=== PATIENT | male | born 1965 | race Caucasian/White ===

== ENCOUNTER → 2017-06-03 14:50 | Outpatient (POV) | payer OTHER, MEDICARE, SELFPAY | PROVIDERS: Family Provider Internal Medicine; PCP Internal Medicine; Visit Provider Nurse Practitioner Acute Care | DX: Z00.00 Encounter for general adult medical examination without abnormal findings (principal) ==

== ENCOUNTER → 2017-07-31 10:15 | Outpatient (CLI) | payer OTHER, MEDICARE, SELFPAY ==
--- NOTE | 2017-07-31 10:22 | XR_ITS ---
EXAM: XR thoracic spine 2V HISTORY: Mid back pain ITS.REASON: MID BACK PAIN, Comparison: 08/27/2016 FINDINGS: Garcia rods are present. There are wedge compression changes involving T9 similar to the previous exam. There is mild kyphosis at the T9 level. There is mild anterolisthesis of T8 on T9 of 7 mm. There is thoracic lumbar curvature convex right IMPRESSION: Postsurgical changes with Garcia rods extending from T6 to T12 with old compression fracture of T9 and mild anterolisthesis of T8 on T9. No acute finding
== END ==
PROVIDERS: PCP Internal Medicine; Visit Provider Internal Medicine
DX: M54.6 Pain in thoracic spine (principal); M54.5 Low back pain; G82.20 Paraplegia, unspecified
CPT/HCPCS: 72070

== ENCOUNTER → 2018-08-11 15:42 | Outpatient (CLI) | payer OTHER, MEDICARE, SELFPAY | PROVIDERS: Visit Provider Internal Medicine | DX: N39.0 Urinary tract infection, site not specified (principal); J03.90 Acute tonsillitis, unspecified | CPT/HCPCS: 87070; 87077; 87086; 87088; 87186 ==

== ENCOUNTER → 2018-08-13 12:56 | Outpatient (CLI) | payer OTHER, MEDICARE, SELFPAY ==
[2018-08-13 13:10] VITALS: BP 119/77; PULSE 108; RESP 18; TEMP 36.6; O2SAT 95
[2018-08-13 13:15] VITALS: BMI 24.3
== END ==
PROVIDERS: PCP Internal Medicine; Visit Provider Internal Medicine
DX: N39.0 Urinary tract infection, site not specified (principal); J03.90 Acute tonsillitis, unspecified
CPT/HCPCS: 96372

== ENCOUNTER 2018-08-14 12:50 | Outpatient (CLI) | payer OTHER, MEDICARE, SELFPAY ==
[2018-08-14 13:06] VITALS: BP 123/74; PULSE 104; RESP 18; TEMP 36.9; O2SAT 100
== END 2018-08-14 13:10 | disposition home or self-care (01) ==
LOC: INF 12:54
PROVIDERS: Visit Provider Internal Medicine
DX: N39.0 Urinary tract infection, site not specified (principal)
CPT/HCPCS: 96372

== ENCOUNTER 2018-08-15 10:55 | Outpatient (CLI) | payer OTHER, MEDICARE, SELFPAY ==
[2018-08-15 11:20] VITALS: BP 94/87; PULSE 92; RESP 18; TEMP 36; O2SAT 100
== END 2018-08-15 11:35 | disposition home or self-care (01) ==
LOC: INF 10:57
PROVIDERS: Visit Provider Internal Medicine
DX: N39.0 Urinary tract infection, site not specified (principal)
CPT/HCPCS: 96372

== ENCOUNTER → 2018-08-16 09:55 | Outpatient (CLI) | payer OTHER, MEDICARE, SELFPAY ==
[2018-08-16 09:55] VITALS: BP 125/71; PULSE 87; RESP 18; TEMP 36.6; O2SAT 98
[2018-08-16 10:14] VITALS: BP 110/74; PULSE 84; RESP 18; TEMP 36.6; O2SAT 98; BMI 23.1
== END ==
PROVIDERS: PCP Internal Medicine; Visit Provider Internal Medicine
DX: N39.0 Urinary tract infection, site not specified (principal)
CPT/HCPCS: 96372

== ENCOUNTER 2018-08-17 12:53 | Outpatient (CLI) | payer OTHER, MEDICARE, SELFPAY ==
[2018-08-17 12:53] VITALS: BP 135/75; PULSE 85; RESP 17; TEMP 36.7; O2SAT 99
[2018-08-17 13:07] VITALS: BP 146/88; PULSE 93; RESP 18; TEMP 36.7; O2SAT 99
== END 2018-08-19 13:45 | disposition home or self-care (01) ==
LOC: INF 12:55
PROVIDERS: PCP Internal Medicine; Visit Provider Internal Medicine
DX: N39.0 Urinary tract infection, site not specified (principal); J03.90 Acute tonsillitis, unspecified
CPT/HCPCS: 96372

== ENCOUNTER 2018-08-18 15:04 | Outpatient (CLI) | payer OTHER, MEDICARE, SELFPAY ==
[2018-08-18 15:05] VITALS: BP 133/83; PULSE 89; RESP 20; TEMP 36.9; O2SAT 95
== END 2018-08-18 15:30 | disposition home or self-care (01) ==
LOC: INF 15:05
PROVIDERS: Visit Provider Internal Medicine
DX: N39.0 Urinary tract infection, site not specified (principal); J03.90 Acute tonsillitis, unspecified
CPT/HCPCS: 96372

== ENCOUNTER 2018-08-19 13:01 | Outpatient (CLI) | payer OTHER, MEDICARE, SELFPAY ==
[2018-08-19 13:22] VITALS: BP 117/80; PULSE 84; RESP 18; O2SAT 98
== END 2018-08-19 13:24 | disposition home or self-care (01) ==
LOC: INF 13:02
PROVIDERS: Visit Provider Internal Medicine
DX: N39.0 Urinary tract infection, site not specified (principal); J03.90 Acute tonsillitis, unspecified
CPT/HCPCS: 96372

== ENCOUNTER → 2019-01-16 10:30 | Outpatient (CLI) | payer OTHER, MEDICARE, SELFPAY ==
--- NOTE | 2019-01-16 | ECG_ITS ---
APPROVED REPORT Exam: Resting ECG HR:97 bpm ECG Measurements Heart Rate 97 AXES VA 152 P 64 QRSd 88 QRS 75 QT 334 T 49 QTc 424 <Conclusion> Normal sinus rhythm Normal ECG Electronically signed by : Duc Shi, 01/16/2019 11:29:57
--- NOTE | 2019-01-16 10:52 | XR_ITS ---
PROCEDURE: XR CHEST 2V CLINICAL HISTORY: CHEST PAIN,DM TYPE II The COMPARISON: CXR CHEST(2 VIEWS-NOT PORTABLE) from 08/27/2016 FINDINGS: The cardiomediastinal silhouette and pulmonary vascularity are within normal limits. The lungs are clear without infiltrates, suspicious nodules, or pleural effusions. Calcified node is present in the azygos region. Garcia rods are present in the thoracic spine. No acute bony anomaly. IMPRESSION: No change no acute finding Dictated by: Anderson Frederick MD 01/16/2019 11:12 Electronically signed by Anderson Frederick MD in [place] 01/16/2019 11:12
[2019-01-16 10:57] LABS: Basophils % 0.7 % (0.1-2.0); Eosinophils # 0.1 K/mm3 (0.0-0.4); Eosinophils % 1.1 % (0.1-12.0); Hematocrit 43.7 % (42.0-52.0); Hemoglobin 14.2 g/dL (14.1-18.0); Lymphocytes % 18.4 % (10-50); Mean Corpuscular HGB Conc 32.6 g/dL (31.8-35.4); Mean Corpuscular Hemoglobin 29.1 pg (27.0-31.2); Mean Corpuscular Volume 89.4 fl (80-94); Mean Platelet Volume 7.8 fl (7.4-10.4); Monocytes # 0.3 K/mm3 (0.1-1.0); Monocytes % 5.2 % (1.7-9.3); Neutrophils % 74.6 % (37.0-80.0); Platelet Count 233 K/mm3 (142-424); Red Blood Count 4.88 M/mm3 (4.60-6.20); Red Cell Distribution Width 13.1 % (11.5-17.5); White Blood Count 5.4 K/mm3 (4.8-10.8)
[2019-01-16 11:13] LABS: Alanine Aminotransferase 12 U/L (12-78); Albumin Level 3.6 gm/dL (3.4-5.0); Albumin/Globulin Ratio 0.9 (1.1-1.8); Alkaline Phosphatase 80 U/L (46-116); Anion Gap 8.8 mEq/L (5-15); Aspartate Amino Transferase 13 U/L (15-37); Bilirubin,Total 0.5 mg/dL (0.2-1.0); Blood Urea Nitrogen 10 mg/dL (7-18); Calcium 9.3 mg/dL (8.5-10.1); Carbon Dioxide 31 mmol/L (21.0-32.0); Chloride 100 mmol/L (98-107); Chol/HDL Ratio 9.3 (1-3.5); Cholesterol 185 mg/dL (140-200); Estimated Glomerular Filt Rate 88 ml/min (>60); GFR (African American) 106 ML/MIN (>60); Glucose 246 mg/dL (74-106); HDL Cholesterol 20 mg/dL (27-67); LDL Cholesterol 112 mg/dL (0-130); Potassium 4.8 mmoL/L (3.5-5.1); Sodium 135 mmol/L (136-145); Total Protein,Serum 7.6 gm/dL (6.4-8.2); Triglycerides 266 mg/dL (30-200); Troponin I < 0.02 ng/ml (0.00-0.06); VLDL Cholesterol 53 mg/dL (0-40)
[2019-01-16 11:51] LABS: Hemoglobin A1C 8.2 % (0.0-7.0)
== END ==
PROVIDERS: Visit Provider Internal Medicine
DX: R07.9 Chest pain, unspecified (principal); E11.9 Type 2 diabetes mellitus without complications; E78.5 Hyperlipidemia, unspecified; Z79.84 Long term (current) use of oral hypoglycemic drugs; G82.20 Paraplegia, unspecified
CPT/HCPCS: 36415; 71046; 80053; 80061; 83036; 84484; 85025; 93005

== ENCOUNTER → 2019-01-23 11:49 | Outpatient (CLI) | payer OTHER, MEDICARE, SELFPAY ==
--- NOTE | 2019-01-23 | CA_ITS ---
APPROVED REPORT Exam: Pharmacologic Technologist: Nona Hernandez Ht: 6 ft 1 in Wt: 185 lbs BSA: 2.08 m2 HR: 79 bpm BP: 96/58 mmHg Indications: CP, SOB Medical History Medications: Metformin,,,,, Gabapentin,,,,, Escitalopram,,,,, Glipizide,,,,, BisOPROLOL,,,,, Baclofen,,,,, Levoflaxacin,,,,, Sitagliptin,,,,, OxYbutyIN,,,,, DAntcolene,,,,, Cardiac Risk Factors: Hyperlipidemia, Tobacco Stress Test Details Test: LEXISCAN HR Resting HR: 78 bpm Max Heart Rate (APMHR): 165 bpm Max HR Achieved: 99 bpm Target HR (85% APMHR): 140 bpm % of APMHR: 60 BP Resting BP: 96/58 mmHg Max BP: 108/65 mmHg Recovery BP: 100.0/65.0 mmHg ECG Resting ECG: NSR Clinical Reason for Termination: Completed Protocol Exercise duration: 04:01 min Highest Stage Achieved: Exercise capacity: 1.0 METs Stress ECG Conclusion No CP or Arrhythmias. Less than 1.5mm ST Segment Changes. Non-Diagnostic. Electronically signed by : Jim Stahl, 01/23/2019 14:54:27
--- NOTE | 2019-01-23 11:52 | NM_ITS ---
APPROVED REPORT Exam: Nuclear Stress Test Indication: Chest pain, SOB, Palpitations, DM, High cholesterol, Family history Patient Location: Outpatient Stress Tech: Nona Hernandez [place] Tech:CLAUDE Burns RT(R)(N) Ht: 6 ft 1 in Wt: 185 lbs HR: 79 bpm BP: 96/58 mmHg BSA: 2.08 m2 BMI: 24.4 History: Chest pain, SOB, Palpitations, DM, High cholesterol, Family history Procedure: Patient received a 0.4 mg of intravenous Lexiscan, resting heart rate 79 bpm, resting blood pressure 96/58 mmHg, with Lexiscan maximum heart rate achived was 98 bpm which is Less than 85 % of the maximum predicted heart rate and blood pressure was 92/58 mmHg. With Lexiscan, patient denied any complaint of chest pain. Electrocardiogram Resting electrocardiogram showed sinus rhythm, with Lexiscan there is less than 1.[address] segment depression noted from the baseline EKG. The EKG portion of the Lexiscan Myoview is nondiagnostic. Cardiac Stress and Resting SPECT Images: Cardiac Stress and Resting SPECT images were obtained using technetium 99m Myoview 32.9 mCi stress and 10.58 mCi at rest. Gated SPECT with analysis of segmental wall motion and calculation of the ejection fraction also done. Cardiac stress and resting SPECT images show uniform myocardial activity without segmental perfusion abnormality, computer derived ejection fraction is 65% with no regional wall motion abnormality, right ventricle is normal size and contractility. Conclusion: 1. The EKG portion of the Lexiscan Myoview is nondiagnostic. 2. No scintigraphic evidence of reversible ischemia seen, computer derived ejection fraction is 65% with no regional wall motion abnormality, right ventricle is normal size and contractility. 3. Normal Lexiscan Myoview study. Electronically signed by : Jim Stahl, 01/23/2019 15:21:51
--- NOTE | 2019-01-23 14:22 | CA_ITS ---
APPROVED REPORT EXAM: Comprehensive 2D, Doppler, and color-flow Echocardiogram Remelt Sugar Boiler: Kelly Soler CRT Ht: 6 ft 1 in Wt: 180lbs BSA: 2.06 BP: 133/75 mmHg Indications: cp, dm, sob, 2D Dimensions LVOT 2.01 cm (M/F) 1.5-2.5 M-Mode Dimensions RVDd 2.99 cm (0.9-2.6) LVDd 4.67 cm (3.5-5.7) LVDs 3.05 cm (3.5-5.7) IVSd 1.84 cm (0.6-1.1) PWd 0.53 cm (0.6-1.1) EF (Teich) 63.90% FS 34.70% EDV (Teich) 100.80 mL ESV (Teich) 36.40 mL LV Diastology E/A Ratio 0.82 Mitral Valve MV A Velocity 66.00 (40-130 cm/s) Left Ventricle Left atrium is mildly enlarged, left ventricle is normal size, mild concentric left ventricular hypertrophy, visually estimated ejection fraction 45 to 50%, there is marked hypokinesis involving the inferior, inferior basal and posterior basal wall. Grade 1 diastolic dysfunction seen with tissue Doppler evidence of raise left atrial pressure. Right Ventricle Right atrium and right ventricular normal size and contractility. Aortic Valve Aortic valve is minimally thickened and fibrosed leaflet on a display good mobility, there is no aortic stenosis aortic insufficiency. Mitral Valve Mitral valve is grossly normal, there is mild mitral regurgitation. Tricuspid Valve Tricuspid valve is grossly normal, there is mild tricuspid regurgitation, tricuspid regurgitation jet velocity is inadequate for calculation of the right ventricular systolic pressure. Pulmonic Valve Pulmonic valve is poorly visualized. Great Vessels Aortic root is normal size. Pericardium No significant pericardial effusion noted. Conclusion 1. Mildly enlarged left atrium, normal left ventricular size, mild concentric left ventricular hypertrophy, visually estimated ejection fraction 45 to 50% with segmental wall motion abnormality described above, grade 1 diastolic dysfunction seen with tissue Doppler evidence of raise left atrial pressure. 2. Mild mitral and tricuspid regurgitation 3. No significant pericardial effusion noted. Electronically signed by : Jim Stahl, 01/26/2019 20:45:36
== END ==
PROVIDERS: PCP Internal Medicine; Visit Provider Urology
DX: R07.9 Chest pain, unspecified (principal); R00.0 Tachycardia, unspecified; R06.02 Shortness of breath; R94.31 Abnormal electrocardiogram [ECG] [EKG]
CPT/HCPCS: 78452; 93017; 93306

== ENCOUNTER → 2019-02-17 08:38 | Outpatient (CLI) | payer OTHER, MEDICARE, SELFPAY ==
--- NOTE | 2019-02-17 08:40 | US_ITS ---
PROCEDURE: US ABDOMEN COMPLETE CLINICAL INDICATION: RUQ PAIN Right upper quadrant pain COMPARISON: No exams were available for comparison FINDINGS: PANCREAS: Unremarkable. No obvious mass or abnormal fluid collection. No ductal dilatation LIVER: No focal liver lesions demonstrated. Homogeneous echogenicity. No intrahepatic biliary ductal dilatation evident. There is appropriate direction of blood flow within a non dilated portal vein RIGHT KIDNEY: Unremarkable. Normal size and echogenicity. No hydronephrosis LEFT KIDNEY: Unremarkable. Normal size and echogenicity. No hydronephrosis GALLBLADDER: The there are multiple gallstones present. No gallbladder wall thickening or pericholecystic fluid. Common bile duct is normal at 5 mm AORTA: No evidence of aneurysmal dilatation. SPLEEN: Unremarkable. Normal size and echogenicity ASCITES: None demonstrated. IMPRESSION: Cholelithiasis Dictated by: Anderson Frederick MD 02/17/2019 16:25 Electronically signed by Anderson Frederick MD in [facility] 02/17/2019 16:25
== END ==
PROVIDERS: PCP Internal Medicine; Visit Provider Internal Medicine
DX: R10.11 Right upper quadrant pain (principal)
CPT/HCPCS: 76700

== ENCOUNTER → 2019-03-16 11:25 | Outpatient (CLI) | payer OTHER, MEDICARE, SELFPAY ==
[2019-03-16 11:54] LABS: Basophils % 0.7 % (0.1-2.0); Eosinophils # 0.2 K/mm3 (0.0-0.4); Eosinophils % 2.4 % (0.1-12.0); Hematocrit 44.2 % (42.0-52.0); Hemoglobin 14.2 g/dL (14.1-18.0); Lymphocytes # 1.6 K/mm3 (0.7-4.5); Lymphocytes % 23.4 % (10-50); Mean Corpuscular Hemoglobin 27.7 pg (27.0-31.2); Mean Corpuscular Volume 86.4 fl (80-94); Mean Platelet Volume 7.9 fl (7.4-10.4); Monocytes # 0.3 K/mm3 (0.1-1.0); Monocytes % 3.7 % (1.7-9.3); Neutrophils # 4.7 K/mm3 (1.8-7.8); Neutrophils % 69.8 % (37.0-80.0); Platelet Count 206 K/mm3 (142-424); Red Blood Count 5.12 M/mm3 (4.60-6.20); Red Cell Distribution Width 13.8 % (11.5-17.5); White Blood Count 6.7 K/mm3 (4.8-10.8)
[2019-03-16 12:31] LABS: Alanine Aminotransferase 17 U/L (12-78); Albumin Level 3.8 gm/dL (3.4-5.0); Albumin/Globulin Ratio 1.2 (1.1-1.8); Alkaline Phosphatase 73 U/L (46-116); Anion Gap 13.6 mEq/L (5-15); Aspartate Amino Transferase 11 U/L (15-37); Bilirubin,Total 0.3 mg/dL (0.2-1.0); Blood Urea Nitrogen 14 mg/dL (7-18); Calcium 9.1 mg/dL (8.5-10.1); Carbon Dioxide 28 mmol/L (21.0-32.0); Chloride 100 mmol/L (98-107); Creatinine,Serum 0.81 mg/dL (0.70-1.30); Estimated Glomerular Filt Rate 99 ml/min (>60); GFR (African American) 120 ML/MIN (>60); Globulin 3.2 gm/dl (1.3-3.2); Glucose 196 mg/dL (74-106); Potassium 4.6 mmoL/L (3.5-5.1); Sodium 137 mmol/L (136-145)
== END ==
PROVIDERS: Visit Provider Surgery
DX: K82.9 Disease of gallbladder, unspecified (principal)
CPT/HCPCS: 36415; 80053; 85025

== ENCOUNTER → 2019-04-09 15:52 | Outpatient (CLI) | payer OTHER, MEDICARE, SELFPAY | PROVIDERS: Visit Provider Internal Medicine | DX: S31.829A Unspecified open wound of left buttock, initial encounter (principal); S31.819A Unspecified open wound of right buttock, initial encounter | CPT/HCPCS: 87070; 87077; 87186; 87205 ==

== ENCOUNTER → 2019-04-13 10:13 | Outpatient (CLI) | payer OTHER, MEDICARE, SELFPAY ==
--- NOTE | 2019-04-13 10:15 | US_ITS ---
PROCEDURE: US EXTREMITY LT LIMITED CLINICAL INDICATION: LESION BUTTOCK Left buttock lesion, possible abscess COMPARISON: No exams were available for comparison FINDINGS: Ultrasound examination performed over the left buttock. There is some subcutaneous soft tissue swelling. There is irregular area of decreased echogenicity with posterior enhancement and some internal debris suspicious for an abscess in the left buttock region. This measures approximately 9 cm in with and 2 cm in thickness. This may represent an abscess. Recommend CT the pelvis/left buttock region with contrast for further evaluation. IMPRESSION: Abnormal exam suspicious for subcutaneous abscess in the left buttock region. Suggest CT with contrast for confirmation Dictated by: Anderson Frederick MD 04/13/2019 10:41 Electronically signed by Anderson Frederick MD in [facility] 04/13/2019 10:41
[2019-04-13 11:11] LABS: Blood Urea Nitrogen 18 mg/dL (7-18); Creatinine,Serum 0.93 mg/dL (0.70-1.30); Estimated Glomerular Filt Rate 84 ml/min (>60); GFR (African American) 102 ML/MIN (>60)
--- NOTE | 2019-04-13 11:19 | CT_ITS ---
PROCEDURE: CT PELVIS W CON CLINICAL INDICATION: LT BUTTOCKS LESION/ABCESS Left buttock pain and swelling with drainage. Abnormal ultrasound suggesting abscess COMPARISON: No exams were available for comparison TECHNIQUE: 75 mL Optiray 350 Axial images obtained with sagittal and coronal reformats. All CT scans at the facility use one or more dose reduction, viz: automated exposure control, ma/kV adjustment per patient size (including targeted exams where dose is matched to indication, i.e. head), or iterative reconstruction technique. FINDINGS: There is abnormal subcutaneous soft tissue density in the left buttock region medially and inferiorly just proximal to the gluteal fold. This measures 7 by 6 by 6 cm. This is consistent with a phlegmonous area. No drainable fluid collection however is evident in this region. There is small amount of gas extending from the ischial tuberosity region linear in nature. The gas extends medially and a component of the gas extends posteriorly. The there is a small defect in the cutaneous soft tissues in this region as well. This is consistent with a decubitus ulcer with cellulitis. The there is sclerosis of the left ischial tuberosity which may reflect chronic osteomyelitis. There are incidental degenerative changes noted of the hips. IMPRESSION: The the overall, the findings are consistent with decubitus ulcer in the left inferior gluteal region medially with cellulitis and chronic osteomyelitis of the ischial tuberosity with a sinus tract noted at the ischial tuberosity region and a small defect within the skin posteriorly inferiorly and medially at the gluteal region. No drainable abscess apparent Dictated by: Anderson Frederick MD 04/13/2019 14:37 Electronically signed by Anderson Frederick MD in [facility] 04/13/2019 14:37
== END ==
PROVIDERS: PCP Internal Medicine; Visit Provider Internal Medicine
DX: S31.829A Unspecified open wound of left buttock, initial encounter (principal)
CPT/HCPCS: 36415; 72193; 76882; 82565; 84520; Q9967

== ENCOUNTER 2019-04-22 10:30 | Outpatient (RCR) | payer OTHER, MEDICARE, SELFPAY | END 2019-04-22 11:20 | disposition home or self-care (01) | LOC: PT 10:30 | PROVIDERS: PCP Internal Medicine; Visit Provider Internal Medicine | DX: S31.829A Unspecified open wound of left buttock, initial encounter (principal); S31.819A Unspecified open wound of right buttock, initial encounter | CPT/HCPCS: 97163; 97597 ==

== ENCOUNTER → 2019-07-07 18:34 | Outpatient (CLI) | payer OTHER, MEDICARE, SELFPAY | PROVIDERS: Visit Provider Internal Medicine | DX: S31.829A Unspecified open wound of left buttock, initial encounter (principal); S31.819A Unspecified open wound of right buttock, initial encounter | CPT/HCPCS: 87070; 87077; 87186; 87205 ==

== ENCOUNTER → 2019-08-28 09:02 | Outpatient (CLI) | payer OTHER, MEDICARE, SELFPAY ==
[2019-08-28 09:46] LABS: Basophils % 0.5 % (0.1-2.0); Eosinophils # 0.2 K/mm3 (0.0-0.4); Eosinophils % 2.5 % (0.1-12.0); Hematocrit 37.2 % (42.0-52.0); Hemoglobin 11.8 g/dL (14.1-18.0); Lymphocytes # 1.9 K/mm3 (0.7-4.5); Lymphocytes % 23.1 % (10-50); Mean Corpuscular HGB Conc 31.6 g/dL (31.8-35.4); Mean Corpuscular Hemoglobin 26.2 pg (27.0-31.2); Mean Corpuscular Volume 82.8 fl (80-94); Mean Platelet Volume 7.6 fl (7.4-10.4); Monocytes # 0.5 K/mm3 (0.1-1.0); Neutrophils # 5.7 K/mm3 (1.8-7.8); Neutrophils % 67.9 % (37.0-80.0); Platelet Count 330 K/mm3 (142-424); Red Blood Count 4.49 M/mm3 (4.60-6.20); Red Cell Distribution Width 14.8 % (11.5-17.5); White Blood Count 8.3 K/mm3 (4.8-10.8)
[2019-08-28 10:20] LABS: Hemoglobin A1C 6.5 % (4.0-6.0)
[2019-08-28 10:59] LABS: Erythrocyte Sedimentation Rate 59 mm/hr (0-20)
[2019-08-28 11:02] LABS: Alanine Aminotransferase 17 U/L (12-78); Albumin Level 3.8 g/dl (3.5-5.0); Albumin/Globulin Ratio 1.2 (1.1-1.8); Alkaline Phosphatase 97 U/L (38-126); Anion Gap 12.7 mEq/L (5-15); Aspartate Amino Transferase 29 U/L (17-59); Bilirubin,Total 0.2 mg/dl (0.2-1.3); Blood Urea Nitrogen 10 mg/dl (9-20); Calcium 9.8 mg/dl (8.4-10.2); Carbon Dioxide 32 mmol/L (22.0-30.0); Chloride 97 mmol/L (98-107); Chol/HDL Ratio 5.9 (1-3.5); Cholesterol 142 mg/dl (140-200); Estimated Glomerular Filt Rate 139 ml/min (>60); GFR (African American) 169 ML/MIN (>60); Globulin 3.1 g/dL (1.3-3.2); Glucose 123 mg/dl (74-100); HDL Cholesterol 24 mg/dl (40-60); Potassium 4.7 mmoL/L (3.5-5.1); Sodium 137 mmol/L (136-145); Total Protein,Serum 6.9 g/dl (6.3-8.2); Triglycerides 196 mg/dl (30-150); VLDL Cholesterol 39 mg/dL (0-40)
[2019-08-28 11:13] LABS: Direct LDL Cholesterol 97.02 mg/dL (100-129)
== END ==
PROVIDERS: Visit Provider Internal Medicine
DX: E78.5 Hyperlipidemia, unspecified (principal); I10 Essential (primary) hypertension; E11.9 Type 2 diabetes mellitus without complications; Z79.84 Long term (current) use of oral hypoglycemic drugs; L89.159 Pressure ulcer of sacral region, unspecified stage
CPT/HCPCS: 36415; 80053; 80061; 83036; 85025; 85651

== ENCOUNTER 2019-09-07 14:30 | Outpatient (RCR) | payer OTHER, MEDICARE, SELFPAY | END 2019-09-07 14:35 | disposition home or self-care (01) | LOC: PT 14:30 | PROVIDERS: PCP Internal Medicine; Visit Provider Internal Medicine | DX: S31.829A Unspecified open wound of left buttock, initial encounter (principal) | CPT/HCPCS: 97163; 97164; 97597; 97598; 97605; 97606 ==

== ENCOUNTER 2019-11-12 12:46 | Emergency (ER) | payer OTHER, MEDICARE, SELFPAY ==
[2019-11-12 12:47] VITALS: BP 176/73; PULSE 118; RESP 18; TEMP 36.9; O2SAT 97; BMI 24.6
--- NOTE | 2019-11-12 13:34 | PC.NURSE ---
Lab at bedside
[2019-11-12 13:35] VITALS: BP 125/70; PULSE 95; O2SAT 97
[2019-11-12 13:36] LABS: Basophils % 0.2 % (0.1-2.0); Eosinophils # 0.1 K/mm3 (0.0-0.4); Eosinophils % 0.9 % (0.1-12.0); Hematocrit 39.2 % (42.0-52.0); Hemoglobin 12.4 g/dL (14.1-18.0); Lymphocytes # 1.3 K/mm3 (0.7-4.5); Lymphocytes % 13.2 % (10-50); Mean Corpuscular HGB Conc 31.5 g/dL (31.8-35.4); Mean Corpuscular Hemoglobin 25.6 pg (27.0-31.2); Mean Corpuscular Volume 81.1 fl (80-94); Mean Platelet Volume 6.6 fl (7.4-10.4); Monocytes # 0.6 K/mm3 (0.1-1.0); Monocytes % 5.9 % (1.7-9.3); Neutrophils # 7.6 K/mm3 (1.8-7.8); Neutrophils % 79.7 % (37.0-80.0); Platelet Count 416 K/mm3 (142-424); Red Blood Count 4.83 M/mm3 (4.60-6.20); Red Cell Distribution Width 14.1 % (11.5-17.5); White Blood Count 9.6 K/mm3 (4.8-10.8)
[2019-11-12 13:40] LABS: Chloride 98 mmol/L (98-107); Potassium 4.8 mmoL/L (3.5-5.1); Sodium 138 mmol/L (136-145)
[2019-11-12 13:43] LABS: Anion Gap 14.8 mEq/L (5-15); Blood Urea Nitrogen 12 mg/dl (9-20); Calcium 9.9 mg/dl (8.4-10.2); Carbon Dioxide 30 mmol/L (22.0-30.0); Creatinine Clearance Estimated 165 mL/min (50-200); Estimated Glomerular Filt Rate 139 ml/min (>60); GFR (African American) 169 ML/MIN (>60); Glucose 304 mg/dl (74-100)
[2019-11-12 13:58] LABS: Erythrocyte Sedimentation Rate 93 mm/hr (0-20)
[2019-11-12 14:06] LABS: Coronavirus 19 IgG Antibody Negative (Negative); Coronavirus 19 IgM Antibody Negative (Negative)
[2019-11-12 14:26] VITALS: BP 123/73; PULSE 81; O2SAT 99
--- NOTE | 2019-11-12 14:56 | HMH.EDGENADL ---
ED Disposition Clinical Impression: Viral infection, Person under investigation for COVID-19 Disposition: Home, Self-Care Condition on Discharge: Good Prescriptions: Sulfamethoxazole/Trimethoprim [Bactrim DS tablet] 1 each PO BID 10 Days #20 tab Transmission Status: Pending to [facility] Cholecalciferol (Vitamin D3) [Dialyvite Vitamin D3 Max] 50,000 unit PO WEEKLY 30 Days #4 tab Transmission Status: Pending to [facility] Losartan Potassium 25 mg PO DAILY 30 Days #30 tab Transmission Status: Pending to [facility] methylPREDNISolone [Medrol 4mg tab] 4 mg PO DIRECTED #21 tab Transmission Status: Pending to [facility] Ketorolac Tromethamine [Toradol 10mg tablet] 10 mg PO Q6H 5 Days #20 tab Transmission Status: Pending to [facility] Referrals: Duc Shi [Primary Care Provider] - - Critical Care Critical Care Time: No Attestation: On 11/12/19, the high probability of a clinically significant, sudden or life threatening deterioration of the following system(s) required my full and direct attention, intervention and personal management. The time I documented below is in addition to time spent performing reported procedures but includes the following listed in this critical care notation. Medical Decision Making - Medical Records Medical records reviewed: Yes: I reviewed the patient's medical records. - Gui Inquiry Pt receiving controlled substance: No Vital Signs: 11/12/19 12:47 11/12/19 13:35 11/12/19 14:26 Temperature 98.4 F Temperature Source Oral Pulse Rate [Left Radial] 118 H 95 H 81 Respiratory Rate 18 Blood Pressure [Right Arm] 176/73 H 125/70 123/73 Blood Pressure Mean [Right Arm] 107 88 89 Blood Pressure Source [Right Arm] Automatic Cuff Automatic Cuff Automatic Cuff Blood Pressure Position [Right Arm] Sitting Sitting Sitting 02 Sat by Pulse Oximetry 97 97 99 Oxygen Delivery Method Room Air Room Air Room Air - Lab Data Lab results reviewed: Yes: I reviewed the patient's lab results. Lab Results 11/12/19 13:20: WBC 9.6, RBC 4.83, Hgb 12.4 L, Hct 39.2 L, MCV 81.1, MCH 25.6 L, MCHC 31.5 L, RDW 14.1, Plt Count 416, MPV 6.6 L, Neut % (Auto) 79.7, Lymph % (Auto) 13.2, [place] % (Auto) 5.9, Eos % (Auto) 0.9, Baso % (Auto) 0.2, Neut # (Auto) 7.6, Lymph # (Auto) 1.3, [place] # (Auto) 0.6, Eos # (Auto) 0.1, Baso # (Auto) 0.0, ESR 93 H 11/12/19 13:20: Sodium 138, Potassium 4.8, Chloride 98, Carbon Dioxide 30, Anion Gap 14.8, BUN 12, Creatinine 0.60 L, Estimated Creat Clear 165, Estimated GFR 139, Est GFR ( Amer) 169, Glucose 304 H, Calcium 9.9, C-Reactive Protein 169.0 H 11/12/19 13:20: SARS-CoV-2 IgG Ab (Rapid) Negative, SARS-CoV-2 IgM Ab (Rapid) Negative Result diagrams: 11/12/19 13:20 11/12/19 13:20 Orders (Tests/Meds): ED MEDICATIONS Discontinued Medications Generic Name Dose Route Start Last Admin Trade Name Freq PRN Reason Stop Dose Admin Sodium Chloride 1,000 mls @ 999 mls/hr 11/12/19 13:30 11/12/19 13:29 Sod Chlor 0.9% 1000ml Bag IV 11/12/19 14:30 999 mls/hr .Q1H1M CRISTELA Administration Ketorolac Tromethamine 30 mg 11/12/19 13:24 11/12/19 13:29 Toradol 30mg/Ml Vial IV 11/12/19 13:25 30 mg ONCE ONE Administration Ondansetron HCl 4 mg 11/12/19 13:24 11/12/19 13:29 Zofran 4mg/2ml Vial IV 11/12/19 13:25 4 mg ONCE ONE Administration ORDERS Category Date Time Status Covid-19 Nasal PCR Sendout [facility] Routine Lab 11/12/19 13:55 Received Covid-19 Nasal PCR Sendout [facility] Stat Lab 11/12/19 13:35 Ordered General Adult HPI - General Chief complaint: PAIN Stated complaint: joint pain Time Seen by Provider: 11/12/19 14:56 Mode of Arrival: Wheelchair Source of Information: Patient Limitations: No Limitations Description of Symptoms (Recalled from ER Triage Doc. by RN): Pt states since Saturday he has been having joint pain and not feeling the best. Some diarrhea and nausea - His
[2019-11-12 15:04] VITALS: BP 123/73; PULSE 81; RESP 18; TEMP 36.9; O2SAT 97
[2019-11-13 13:37] LABS: Covid-19 Nasal PCR Sendout Lex Not Detected
== END 2019-11-12 15:04 | disposition home or self-care (01) ==
PROVIDERS: Emergency Provider Family Medicine; PCP Internal Medicine
DX: B34.9 Viral infection, unspecified (principal); Z03.818 Encounter for observation for suspected exposure to other biological agents ruled out; Z88.7 Allergy status to serum and vaccine; Z79.899 Other long term (current) drug therapy; E11.9 Type 2 diabetes mellitus without complications; E78.5 Hyperlipidemia, unspecified; I10 Essential (primary) hypertension; F17.290 Nicotine dependence, other tobacco product, uncomplicated
CPT/HCPCS: 80048; 85025; 85651; 86140; 86328; 96365; 96375; 99283; J2405; U0004

== ENCOUNTER → 2019-11-12 13:54 | Outpatient (CLI) | payer OTHER, MEDICARE, SELFPAY ==
[2019-11-12 13:57] LABS: Adenovirus F 40/41, stool Not Detected (NotDetected); Astrovirus Not Detected (NotDetected); Campylobacter Not Detected (NotDetected); Cryptosporidium Not Detected (NotDetected); Cyclospora Cayetanesis Not Detected (NotDetected); Entamoeba histolytica Not Detected (NotDetected); Enteroaggregative E coli Not Detected (NotDetected); Enteropathogenic E coli Not Detected (NotDetected); Enterotoxigenic E coli Not Detected (NotDetected); Giardia lamblia Not Detected (NotDetected); Microscopic, Urine URINE MICROSCOPIC (MICROSCOPIC); Norovirus Not Detected (NotDetected); Plesimonas Shigalloides, PCR Not Detected (NotDetected); Rotavirus A Not Detected (NotDetected); Salmonella, PCR Not Detected (NotDetected); Sapovirus Not Detected (NotDetected); Shiga-like toxin E coli Not Detected (NotDetected); Shigella Enterovasive E coli Not Detected (NotDetected); Vibrio Cholerae Not Detected (NotDetected); Vibrio, PCR Not Detected (NotDetected); Yersinia Entercolitica, PCR Not Detected (NotDetected)
[2019-11-12 15:43] LABS: Appearance,Urine CLEAR (Clear); Bilirubin,Urine Negative (Negative); Blood, Urine 1+ (Negative); Color,Urine YELLOW (Yellow); Glucose,Urine (UA) TRACE (Negative); Ketones,Urine Negative (Negative); Leukocyte Esterase,Urine 2+ (Negative); Nitrate,Urine Negative (Negative); PH,Urine 5.5 (5.0-8.5); Protein,Urine 1+ (Negative); Specific Gravity, Urine 1.025 (1.005-1.030); Urobilinogen,Urine 0.2 EU/dl (0.2)
[2019-11-12 16:04] LABS: Yeast,Urine 2+ /lpf
[2019-11-12 16:05] LABS: Bacteria,Urine Trace /lpf
[2019-11-12 22:05] LABS: Clostridium Difficile A/B, PCR Detected (NotDetected)
== END ==
PROVIDERS: Visit Provider Internal Medicine
DX: R19.7 Diarrhea, unspecified (principal); R53.83 Other fatigue; M79.10 Myalgia, unspecified site
CPT/HCPCS: 81001; 87506

== ENCOUNTER → 2019-11-18 16:49 | Outpatient (CLI) | payer OTHER, MEDICARE, SELFPAY ==
[2019-11-18 16:52] LABS: Microscopic, Urine URINE MICROSCOPIC (MICROSCOPIC)
[2019-11-18 17:08] LABS: Appearance,Urine CLEAR (Clear); Bilirubin,Urine Negative (Negative); Blood, Urine 3+ (Negative); Color,Urine YELLOW (Yellow); Glucose,Urine (UA) 3+ (Negative); Ketones,Urine Negative (Negative); Leukocyte Esterase,Urine TRACE (Negative); Nitrate,Urine Negative (Negative); PH,Urine 6.5 (5.0-8.5); Protein,Urine 1+ (Negative); Urobilinogen,Urine 0.2 EU/dl (0.2)
[2019-11-18 17:27] LABS: Amorphous Sediment,Urine 1+ /lpf; Bacteria,Urine 1+ /lpf; RBC,Urine 50-100 #/hpf (0-3); WBC,Urine Occasional #/hpf (0-3)
== END ==
PROVIDERS: Visit Provider Internal Medicine
DX: N39.0 Urinary tract infection, site not specified (principal)
CPT/HCPCS: 81001

== ENCOUNTER 2019-11-22 12:11 | Inpatient (IN) | payer OTHER, MEDICARE, SELFPAY ==
[2019-11-22] VITALS (7 sets, daily range): BP systolic 119–142; BP diastolic 61–85; PULSE 79–116; RESP 17–20; TEMP 36.6–36.9; O2SAT 98–100; BMI 24.6; BMI 24.5
[2019-11-22 12:57] LABS: Microscopic, Urine URINE MICROSCOPIC (MICROSCOPIC)
--- NOTE | 2019-11-22 12:58 | CT_ITS ---
Procedure: CT ABDOMEN PELVIS WO CON Referring Doctor: Maciej Mcfarland Patient Age:54Y CLINICAL INDICATION: hematuria. With aching all over. 54-year-old prior cholecystectomy COMPARISON: US KID US [id number] from 08/21/2016 TECHNIQUE: No oral nor IV contrast utilized Helical axial images obtained with sagittal and coronal reformats. All CT scans at the facility use one or more dose reduction, viz: automated exposure control, ma/kV adjustment per patient size (including targeted exams where dose is matched to indication, i.e. head), or iterative reconstruction technique. FINDINGS: Lower thorax: No acute finding lung bases clear.. Borderline/mild wall thickening at the distal esophagus-Any history of reflux? ABDOMEN: Lack of oral and IV contrast does may decrease sensitivity. In addition there is streak artifact from the posterior fixation rods extending down to the lower T-spine Liver: No masses or biliary dilatation. Gallbladder: Surgically removed. Common duct appears normal. Pancreas: No masses or peripancreatic fluid collections. Spleen: Unremarkable adrenals: unremarkable tract Suspect prominent cystitis: Diffuse prominent bladder wall thickening. With hazy appearance fat surrounding the bladder-highly suggestive of a severe cystitis. Clinical correlation required. No calculi are seen within the urinary bladder nor evident along the visualized penile urethra. Prostate appears normal size and unremarkable. No free fluid pelvis basin. Left obstructive uropathy. Mild hydronephrosis and hydroureter on left.. The ureter is dilated down to the thickened urinary bladder-. On close inspection question perhaps very subtle additional edema and thickening at the left trigone region more so than right which may contribute more evident left ureteral dilatation. The right ureter shows only some subtle fullness but upper normal at pelvic ureter on right. More superiorly the right ureter is normal caliber and I see no significant right hydronephrosis but there is some slight stranding about both kidneys.. GI tract Note colostomy stoma left of midline towards left lower quadrant.. It appears at the proximal sigmoid colon was diverted to this region. There is a long distal the sigmoid rectal segment/Nanda's pouch segment containing mild/moderate contents. However proximal to the ostomy the constipation evident. Particularly note, large amount of stool reflecting constipation distending the right and transverse colon. Less prominent stool at the descending colon The appendix and terminal ileum appear normal no appendicitis. Small bowel appears normal. No dilatation. Stomach unremarkable. Borderline/mild wall thickening at the distal esophagus a again noted. Very subtle hazy appearance of the retroperitoneal fat in some areas a likely baseline for this patient and doubtful significance. No associated lymph nodes or other findings. Peritoneum: No abnormal fluid collections... No free air. Lymph nodes: No enlarged lymph nodes apparent. Vasculature: No evidence of abdominal aortic aneurysm. Diffuse moderate atherosclerotic calcification lower abdominal aorta and iliac vessels. Bones: Old appearing wedge compression fracture T9 appears.. Metallic posterior fixation elements extend down from T-spine to be secured along inferior aspect of the T11 posterior elements. IMPRESSION: 1..Prominent diffuse wall thickening urinary bladder, with hazy, stranding of fat surrounding the bladder.-These findings suggest a SEVERE CYSTITIS... 2..Mild Left Hydronephrosis And Hydroureter. This most likely secondary to the inflammation at ur
[2019-11-22 13:00] LABS: Basophils % 0.1 % (0.1-2.0); Eosinophils # 0.2 K/mm3 (0.0-0.4); Eosinophils % 1.5 % (0.1-12.0); Hematocrit 38.5 % (42.0-52.0); Hemoglobin 12.4 g/dL (14.1-18.0); Lymphocytes # 1.1 K/mm3 (0.7-4.5); Lymphocytes % 9.5 % (10-50); Mean Corpuscular HGB Conc 32.3 g/dL (31.8-35.4); Mean Corpuscular Hemoglobin 26.4 pg (27.0-31.2); Mean Corpuscular Volume 81.7 fl (80-94); Mean Platelet Volume 7.3 fl (7.4-10.4); Monocytes # 0.6 K/mm3 (0.1-1.0); Monocytes % 4.9 % (1.7-9.3); Neutrophils # 9.7 K/mm3 (1.8-7.8); Platelet Count 366 K/mm3 (142-424); Red Blood Count 4.71 M/mm3 (4.60-6.20); Red Cell Distribution Width 15.4 % (11.5-17.5); White Blood Count 11.6 K/mm3 (4.8-10.8)
[2019-11-22 13:00] LABS: Appearance,Urine CLOUDY (Clear); Bilirubin,Urine Negative (Negative); Blood, Urine 2+ (Negative); Color,Urine YELLOW (Yellow); Glucose,Urine (UA) 3+ (Negative); Ketones,Urine 1+ (Negative); Leukocyte Esterase,Urine 1+ (Negative); Nitrate,Urine Negative (Negative); Protein,Urine 2+ (Negative); Specific Gravity, Urine 1.015 (1.005-1.030); Urobilinogen,Urine 0.2 EU/dl (0.2)
--- NOTE | 2019-11-22 13:00 | HMH.EDGENADL ---
ED Disposition Clinical Impression: C. difficile diarrhea, Hyperglycemia Urinary tract infection Qualifiers: Urinary tract infection type: acute cystitis Hematuria presence: with hematuria Qualified Code(s): N30.01 - Acute cystitis with hematuria Disposition: Admitted as Observation Condition on Discharge: Fair Referrals: Duc Shi [Primary Care Provider] - - Critical Care Critical Care Time: No Attestation: On 11/22/19, the high probability of a clinically significant, sudden or life threatening deterioration of the following system(s) required my full and direct attention, intervention and personal management. The time I documented below is in addition to time spent performing reported procedures but includes the following listed in this critical care notation. Medical Decision Making - Medical Records Medical records reviewed: Yes: I reviewed the patient's medical records. - Gui Inquiry Pt receiving controlled substance: No Vital Signs: 11/22/19 12:12 11/22/19 13:06 11/22/19 14:24 Temperature 98.2 F Temperature Source Oral Pulse Rate [Left Radial] 116 H 100 H 93 H Respiratory Rate 18 18 Blood Pressure [Right Arm] 142/74 H 119/67 126/71 Blood Pressure Mean [Right Arm] 96 84 89 Blood Pressure Source [Right Arm] Automatic Cuff Automatic Cuff Blood Pressure Position [Right Arm] Sitting Sitting 02 Sat by Pulse Oximetry 98 98 98 Oxygen Delivery Method Room Air Room Air - Lab Data Lab results reviewed: Yes: I reviewed the patient's lab results. Lab Results 11/22/19 12:40: WBC 11.6 H, RBC 4.71, Hgb 12.4 L, Hct 38.5 L, MCV 81.7, MCH 26.4 L, MCHC 32.3, RDW 15.4, Plt Count 366, MPV 7.3 L, Neut % (Auto) 84.0 H, Lymph % (Auto) 9.5 L, [place] % (Auto) 4.9, Eos % (Auto) 1.5, Baso % (Auto) 0.1, Neut # (Auto) 9.7 H, Lymph # (Auto) 1.1, [place] # (Auto) 0.6, Eos # (Auto) 0.2, Baso # (Auto) 0.0 11/22/19 12:40: Sodium 130 L, Potassium 4.6, Chloride 95 L, Carbon Dioxide 30, Anion Gap 9.6, BUN 15, Creatinine 0.70, Estimated Creat Clear 141, Estimated GFR 117, Est GFR ( Amer) 141, Glucose 404 H*, Calcium 8.8, Total Bilirubin 0.4, AST 20, ALT 15, Alkaline Phosphatase 98, Total Protein 6.2 L, Albumin 3.2 L, Globulin 3.0, Albumin/Globulin Ratio 1.1 11/22/19 12:40: Lactate 1.4 11/22/19 12:53: Urine Color Yellow, Urine Appearance Cloudy, Urine pH 6.0, Ur Specific [place] 1.015, Urine Protein 2+, Urine Glucose (UA) 3+, Urine Ketones 1+, Urine Blood 2+, Urine Nitrate Negative, Urine Bilirubin Negative, Urine Urobilinogen 0.2, Ur Leukocyte Esterase 1+ A, Urine RBC 5-10, Urine WBC Tntc, Ur Squamous Epith Cells Occasional, Urine Bacteria 1+ 11/22/19 13:09: Acetone Level Small Result diagrams: 11/22/19 12:40 11/22/19 12:40 Orders (Tests/Meds): ED MEDICATIONS Discontinued Medications Generic Name Dose Route Start Last Admin Trade Name Freya PRN Reason Stop Dose Admin Insulin Human Lispro 10 unit 11/22/19 13:23 11/22/19 13:34 Humalog 100 Units/Ml 3ml Vial (Ssi) SQ 11/22/19 13:24 10 unit ONCE ONE Administration Sodium Chloride 1,000 ml 11/22/19 14:38 Sod Chlor 0.9% 1000ml Bag IV 11/22/19 14:39 BOLUS ONE ORDERS Category Date Time Status Blood Culture Stat Micro 11/22/19 12:33 Received Urine Culture Stat Micro 11/22/19 12:53 Received - CT Data CT Scan: Abdomen, Pelvis Time Received: 14:[address] Reviewed: Yes: I have viewed the radiologist's interpretation Findings Narrative: Procedure: CT ABDOMEN PELVIS WO CON Referring Doctor: Maciej Mcfarland Patient Age:54Y CLINICAL INDICATION: hematuria. With aching all over. 54-year-old prior cholecystectomy COMPARISON: US KID US [id number] from 08/21/2016 TECHNIQUE: No oral nor IV contrast utilized Helical axial images obtained with sagittal and coronal reformats. All CT scans at the facility use one or more dose reduction, viz: automated exposure control, ma/kV adjustment per patient size
[2019-11-22 13:07] LABS: Alanine Aminotransferase 15 U/L (12-78); Albumin Level 3.2 g/dl (3.5-5.0); Albumin/Globulin Ratio 1.1 (1.1-1.8); Alkaline Phosphatase 98 U/L (38-126); Anion Gap 9.6 mEq/L (5-15); Aspartate Amino Transferase 20 U/L (17-59); Bilirubin,Total 0.4 mg/dl (0.2-1.3); Blood Urea Nitrogen 15 mg/dl (9-20); Calcium 8.8 mg/dl (8.4-10.2); Carbon Dioxide 30 mmol/L (22.0-30.0); Chloride 95 mmol/L (98-107); Creatinine Clearance Estimated 141 mL/min (50-200); Estimated Glomerular Filt Rate 117 ml/min (>60); GFR (African American) 141 ML/MIN (>60); Potassium 4.6 mmoL/L (3.5-5.1); Sodium 130 mmol/L (136-145); Total Protein,Serum 6.2 g/dl (6.3-8.2)
[2019-11-22 13:08] LABS: Lactic Acid 1.4 mmol/L (0.7-2.1)
[2019-11-22 13:09] LABS: Glucose 404 mg/dl (74-100)
--- NOTE | 2019-11-22 13:20 | PC.NURSE ---
Pt to rad.
[2019-11-22 13:26] LABS: WBC,Urine TNTC #/hpf (0-3)
[2019-11-22 13:27] LABS: Bacteria,Urine 1+ /lpf; Squamous Epithelial Cell,Urine Occasional #/hpf (0-5)
[2019-11-22 13:37] LABS: Acetone, Serum (Rapid) Small (None Detect)
--- NOTE | 2019-11-22 14:45 | PC.NURSE ---
speaking to dr orellana at this time
[2019-11-22 16:19] LABS: Coronavirus 19 IgG Antibody Negative (Negative); Coronavirus 19 IgM Antibody Negative (Negative)
--- NOTE | 2019-11-22 16:46 | PC.NURSE ---
PHARMACY TAG METER OPERATOR WAS NOTIFIED TO VERIFY PO VANCOMYCIN. PHARMACIST GAVE INSTRUCTIONS ON HOW TO MIX.
[2019-11-22 23:50] LABS: POC Glucose,Bedside 383 (70-110)
[2019-11-23 04:00] VITALS: BP 137/65; PULSE 89; RESP 17; TEMP 37.6; O2SAT 94
--- NOTE | 2019-11-23 05:01 | PC.NURSE ---
Pt is A&) x4. Slept well this shift. Lung sounds remain clear with diminished breath sounds at BL bases. [place] draining clear, dark yellow urine per gravity. FSBS at 2100 was 383, pt received 10 units of Humalog. CRE swab collected per pt stoma and sent to lab. Pt c/o muscle stiffness and pain. PRN meds administered per MAR, pt now resting comfortably in bed. Call light remains in reach along with all other safety measures. No other acute changes at this time. Will continue to monitor.
[2019-11-23 05:08] LABS: Basophils % 0.3 % (0.1-2.0); Eosinophils # 0.2 K/mm3 (0.0-0.4); Eosinophils % 1.9 % (0.1-12.0); Hematocrit 33.8 % (42.0-52.0); Lymphocytes % 19.2 % (10-50); Mean Corpuscular Hemoglobin 26.6 pg (27.0-31.2); Mean Corpuscular Volume 80.8 fl (80-94); Mean Platelet Volume 7.8 fl (7.4-10.4); Monocytes # 0.7 K/mm3 (0.1-1.0); Monocytes % 6.8 % (1.7-9.3); Neutrophils # 7.6 K/mm3 (1.8-7.8); Neutrophils % 71.8 % (37.0-80.0); Platelet Count 339 K/mm3 (142-424); Red Blood Count 4.18 M/mm3 (4.60-6.20); Red Cell Distribution Width 15.9 % (11.5-17.5); White Blood Count 10.5 K/mm3 (4.8-10.8)
[2019-11-23 05:11] LABS: Hemoglobin 11.1 g/dL (14.1-18.0)
[2019-11-23 05:16] LABS: Blood Urea Nitrogen 11 mg/dl (9-20); Calcium 8.8 mg/dl (8.4-10.2); Carbon Dioxide 30 mmol/L (22.0-30.0); Chloride 99 mmol/L (98-107); Creatinine Clearance Estimated 196 mL/min (50-200); Estimated Glomerular Filt Rate 172 ml/min (>60); GFR (African American) 208 ML/MIN (>60); Sodium 134 mmol/L (136-145)
[2019-11-23 05:19] LABS: Glucose 186 mg/dl (74-100)
[2019-11-23 05:20] VITALS: BMI 25.2
[2019-11-23 06:19] LABS: POC Glucose,Bedside 303 (70-110)
--- NOTE | 2019-11-23 06:59 | P.CONPHA_ITS ---
[facility] Pharmacy VTE Monitoring - Patient Demographics Admission date: 11/22/19 Report Date: 11/23/19 Time: 06:59 Allergies/Adverse Reactions: Patient Allergies Tetanus Vaccines and Toxoid [Tetanus Vaccines & Toxoid] Allergy (Mild, Verified 04/24/19 10:28) Height: 1.85 m Weight: 86.268 kg Patient Problems: Current Active Problems Urinary tract infection (Acute) C. difficile diarrhea (Acute) Hyperglycemia (Acute) - VTE Risk Labs: VTE Related Lab Results Hgb 11.1 g/dL (14.1-18.0) L D 11/23/19 04:45 Hct 33.8 % (42.0-52.0) L 11/23/19 04:45 Plt Count 339 K/mm3 (142-424) 11/23/19 04:45 BUN 11 mg/dl (9-20) D 11/23/19 04:45 Creatinine 0.50 mg/dl (0.66-1.25) L D 11/23/19 04:45 Estimated Creat Clear 196 mL/min (50-200) 11/23/19 04:45 VTE Score: 5 VTE Risk Level: Low Risk - Prophylaxis VTE Prophylaxis Ordered?: Yes Types of VTE Prophylaxis: TEDS Knee High Location of Applied Device: Bilateral Lower Extremeties
[2019-11-23 08:00] VITALS: BP 125/66; PULSE 105; RESP 18; TEMP 36.8; O2SAT 95
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
[2019-11-23 08:55] LABS: C-Reactive Protein 145.7 mg/L (0-4)
--- NOTE | 2019-11-23 09:05 | HMH.PHAINT ---
PATIENT OWN MEDICATION USE--PATIENT IS MEDICARE OBS PATIENT. MANY OF THE PATIENT'S BOTTLES WERE . SOME FILLED IN 2002 IN THE BAG OF MEDS. DISCUSSED WITH NURSE.
[2019-11-23 09:16] LABS: Erythrocyte Sedimentation Rate 59 mm/hr (0-20)
--- NOTE | 2019-11-23 10:40 | PC.NURSE ---
pt vomited. Called Dr. Connor's office and spoke to Sepideh. Updated her on the situation. She will call back with new orders per Dr. Connor.
[2019-11-23 11:04] VITALS: BMI 25.2
[2019-11-23 11:37] LABS: POC Glucose,Bedside 150 (70-110)
--- NOTE | 2019-11-23 12:15 | HMH.PHAINT ---
MEDICATION RECONCILIATION COMPLETED ON PATIENT USING EXTERNAL FILL HISTORY FROM PHARMACY AND LIST FROM DR. [facility]' OFFICE. -CAROL SHULTZ, YINGD
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
[2019-11-23 16:00] VITALS: BP 116/62; PULSE 83; RESP 19; TEMP 37; O2SAT 100
[2019-11-23 16:56] LABS: POC Glucose,Bedside 132 (70-110)
--- NOTE | 2019-11-23 17:36 | PC.NURSE ---
brought current bottle of Dantrolene. Bottle locked in med drawer.
--- NOTE | 2019-11-23 19:10 | PC.NURSE ---
report given to breanne
[2019-11-23 20:00] VITALS: BP 122/60; PULSE 93; RESP 20; TEMP 37; O2SAT 96
[2019-11-23 21:03] LABS: POC Glucose,Bedside 216 (70-110)
[2019-11-24 05:21] VITALS: BP 121/43; PULSE 106; RESP 18; TEMP 37.1; O2SAT 99
[2019-11-24 05:23] VITALS: BMI 25.7
[2019-11-24 05:49] LABS: POC Glucose,Bedside 147 (70-110)
--- NOTE | 2019-11-24 06:53 | HMH.ACPN2 ---
Internal Medicine - PN: Subj *Date: 11/24/19 *Time: 08:58 Interval history: Patient doing well this morning. No complaints at this time. Afebrile. Mild nausea but tolerating p.o. intake well. Pain managed on current regimen. Continue to await cultures. Diarrhea has improved. Exam Vital signs and Labs for Last 24 Hours: Temp Pulse Resp BP Pulse Ox 98.7 F 106 H 18 121/43 L 99 11/24/19 05:21 11/24/19 05:21 11/24/19 05:21 11/24/19 05:21 11/24/19 05:21 Laboratory Results - last 24 hr 11/23/19 04:45: ESR 59 H 11/23/19 04:45: C-Reactive Protein 145.7 H 11/23/19 11:27: POC Glucose 150 H 11/23/19 16:46: POC Glucose 132 H 11/23/19 20:55: POC Glucose 216 H 11/24/19 05:38: POC Glucose 147 H I & O for Last 24 hours: Intake & Output 11/21/19 11/22/19 11/23/19 11/24/19 23:59 23:59 23:59 23:59 Intake Total 1000 / 1000 2878 / 2878 670 / 670 Output Total 1500 / 1500 1650 / 1650 2100 / 2100 Balance -500 / -500 1228 / 1228 -1430 / -1430 Weight 84.17 kg 86.268 kg 88.269 kg Microbiology Reports for the Last 24 Hours: Microbiology 11/22/19 12:53 Urine,Suprapubic Urine Culture - Preliminary Narrative: NAD on RA, pleasant on interview - *Routine HEENT Exam Head: Present: normocephalic Eye: Present: EOMI, PERRL ENT: Present: mucous membranes moist - *Routine Neck Exam Present: supple. Absent: lymphadenopathy - *Routine Respiratory Exam Present: CTA bilaterally - *Routine Cardiovascular Exam Present: RRR - *Routine Abdominal Exam Present: soft, normoactive bowel sounds. Absent: tenderness Comments: Ostomy in place. Appears to be functioning well - *Routine Exam Madison catheter in place, draining dark yellow urine - *Routine Extremities Exam Present: edema which seems to be at baseline, very mild in extremities. No evidence of active joint inflammation in the MCP joints. Patient however is unable to fully flex his fingers because of subjective pain. He has no evidence of elbow synovitis or shoulder synovitis but does have some subjective myalgias and tenderness to touch. - Routine Back/Spine/Pelvis Exam Comments: See nursing documentation for his postsurgical status on the buttock flap - *Routine Skin Exam Present: warm. Absent: rash - *Routine Neurological Exam Present: alert, oriented X3; Diminished muscle tone and bulk with paraplegia from T11 down (POA, Chronic) Assessment and Plan (1) Urinary tract infection Current visit: Yes Status: Acute Qualifiers: Urinary tract infection type: acute cystitis Hematuria presence: with hematuria Qualified Code(s): N30.01 - Acute cystitis with hematuria Category: Medical Code(s): N39.0 - Urinary tract infection, site not specified (2) Diabetes mellitus type 2 in nonobese Current visit: Yes Status: Acute Category: Medical Code(s): E11.9 - Type 2 diabetes mellitus without complications (3) Myalgia Current visit: Yes Status: Acute Category: Medical Code(s): M79.10 - Myalgia, unspecified site (4) Arthralgia Current visit: Yes Status: Acute Category: Medical Code(s): M25.50 - Pain in unspecified joint (5) C. difficile diarrhea Current visit: Yes Status: Acute Category: Medical Code(s): A04.72 - Enterocolitis due to Clostridium difficile, not specified as recurrent (6) Hydronephrosis Current visit: Yes Status: Acute Category: Medical Code(s): N13.30 - Unspecified hydronephrosis (7) Acute cystitis Current visit: Yes Status: Acute Category: Medical Code(s): N30.00 - Acute cystitis without hematuria - Assessment and plan all Dx Assessment and Plan for all problems:: 54-year-old gentleman with pyuria, UTI, hydronephrosis, C. difficile colitis. Continue current broad-spectrum antibiotics. Awaiting sensitivities. Plan to treat with empiric course of vancomycin orally for C. difficile. Pain doing better with Toradol, will continue for second 5-day co
[2019-11-24 07:08] LABS: Basophils % 0.2 % (0.1-2.0); Eosinophils # 0.2 K/mm3 (0.0-0.4); Hematocrit 31.2 % (42.0-52.0); Hemoglobin 10.1 g/dL (14.1-18.0); Lymphocytes # 1.5 K/mm3 (0.7-4.5); Lymphocytes % 20.1 % (10-50); Mean Corpuscular HGB Conc 32.4 g/dL (31.8-35.4); Mean Corpuscular Hemoglobin 26.9 pg (27.0-31.2); Mean Platelet Volume 7.5 fl (7.4-10.4); Monocytes # 0.5 K/mm3 (0.1-1.0); Monocytes % 7.1 % (1.7-9.3); Neutrophils # 5.2 K/mm3 (1.8-7.8); Neutrophils % 70.5 % (37.0-80.0); Platelet Count 297 K/mm3 (142-424); Red Blood Count 3.76 M/mm3 (4.60-6.20); Red Cell Distribution Width 16.4 % (11.5-17.5); White Blood Count 7.4 K/mm3 (4.8-10.8)
[2019-11-24 07:17] LABS: Chloride 100 mmol/L (98-107); Potassium 4.1 mmoL/L (3.5-5.1); Sodium 136 mmol/L (136-145)
[2019-11-24 07:20] LABS: Alanine Aminotransferase 15 U/L (12-78); Albumin Level 2.7 g/dl (3.5-5.0); Alkaline Phosphatase 62 U/L (38-126); Anion Gap 13.1 mEq/L (5-15); Aspartate Amino Transferase 30 U/L (17-59); Bilirubin,Total 0.3 mg/dl (0.2-1.3); Blood Urea Nitrogen 8 mg/dl (9-20); Calcium 8.7 mg/dl (8.4-10.2); Carbon Dioxide 27 mmol/L (22.0-30.0); Creatinine Clearance Estimated 206 mL/min (50-200); Estimated Glomerular Filt Rate 172 ml/min (>60); GFR (African American) 208 ML/MIN (>60); Globulin 2.8 g/dL (1.3-3.2); Glucose 153 mg/dl (74-100); Total Protein,Serum 5.5 g/dl (6.3-8.2)
[2019-11-24 07:34] VITALS: BP 106/56; PULSE 107; RESP 18; TEMP 36.8; O2SAT 97
[2019-11-24 08:00] VITALS: O2SAT 97
[2019-11-24 08:21] VITALS: PULSE 107; O2SAT 97
[2019-11-24 11:32] LABS: POC Glucose,Bedside 222 (70-110)
[2019-11-24 16:00] VITALS: BP 112/71; PULSE 105; RESP 18; TEMP 37.1; O2SAT 97
[2019-11-24 16:36] LABS: POC Glucose,Bedside 162 (70-110)
--- NOTE | 2019-11-24 17:47 | PC.NURSE ---
pt has done well this shift. he turns himself in the bed independently from each side, and prone and supine. pt reported nausea x1, medicated per mar with desired effect. mohan draining appropriate amount of yellow urine. pt manages colostomy bag himself, replaced it x1 today. vss. will cont. to monitor.
[2019-11-24 21:04] VITALS: BP 141/85; PULSE 108; RESP 21; TEMP 37.3; O2SAT 98
[2019-11-25 00:48] LABS: POC Glucose,Bedside 217 (70-110)
[2019-11-25 01:07] LABS: RMSF, IgG, EIA Negative (Negative)
[2019-11-25 04:00] VITALS: BP 140/83; PULSE 97; RESP 18; TEMP 36.8; O2SAT 97
--- NOTE | 2019-11-25 04:59 | PC.NURSE ---
A&OX3. INDUSTRIAL ELECTRICIAN EQUAL BILAT. LUNGS CLEAR T/O AUSCULTATION. TOLERATED RA WELL. ABDOMEN NOTED NONDISTENDED, ACTIVE BOWEL SOUNDS AUSCULTATED, SOFT AND NONTENDER PER PALPATION. COLOSTOMY BAG NOTED TO LEFT PORTION OF ABDOMEN, CDI, PT IS INDEPENDENT WITH COLOSTOMY CARE. CONTACT [employer] MAINTAINED T/O SHIFT FOR CDIFF. PULSES +2. CAP REFILL < 3SEC. PT REQUESTED PAIN MEDICATION FOR C/O JOINT PAIN, ADMINISTERED TORADOL, ON REASSESSMENT BUT NOTED RESTING WITH EYES CLOSED. VSS. WILL CONTINUE TO MONITOR.
[2019-11-25 05:08] VITALS: BMI 25.7
[2019-11-25 05:35] LABS: Rocky Mtn Spotted Fever, IgM 0.32 index (0.00-0.89)
[2019-11-25 06:52] LABS: Basophils % 0.3 % (0.1-2.0); Eosinophils # 0.1 K/mm3 (0.0-0.4); Eosinophils % 1.5 % (0.1-12.0); Hematocrit 28.9 % (42.0-52.0); Hemoglobin 9.6 g/dL (14.1-18.0); Lymphocytes # 1.2 K/mm3 (0.7-4.5); Lymphocytes % 20.2 % (10-50); Mean Corpuscular HGB Conc 33.2 g/dL (31.8-35.4); Mean Corpuscular Hemoglobin 26.4 pg (27.0-31.2); Mean Corpuscular Volume 79.5 fl (80-94); Mean Platelet Volume 7.6 fl (7.4-10.4); Monocytes # 0.5 K/mm3 (0.1-1.0); Monocytes % 7.6 % (1.7-9.3); Neutrophils # 4.2 K/mm3 (1.8-7.8); Neutrophils % 70.4 % (37.0-80.0); Platelet Count 272 K/mm3 (142-424); Red Blood Count 3.63 M/mm3 (4.60-6.20); Red Cell Distribution Width 16.3 % (11.5-17.5)
[2019-11-25 06:59] LABS: Chloride 103 mmol/L (98-107)
[2019-11-25 07:00] LABS: Potassium 4.2 mmoL/L (3.5-5.1); Sodium 137 mmol/L (136-145)
[2019-11-25 07:02] LABS: Alanine Aminotransferase 17 U/L (12-78); Alkaline Phosphatase 71 U/L (38-126); Anion Gap 11.2 mEq/L (5-15); Aspartate Amino Transferase 35 U/L (17-59); Bilirubin,Total 0.3 mg/dl (0.2-1.3); Blood Urea Nitrogen 5 mg/dl (9-20); Carbon Dioxide 27 mmol/L (22.0-30.0); Creatinine Clearance Estimated 205 mL/min (50-200); Estimated Glomerular Filt Rate 172 ml/min (>60); GFR (African American) 208 ML/MIN (>60)
[2019-11-25 07:03] LABS: Albumin Level 2.6 g/dl (3.5-5.0); Albumin/Globulin Ratio 0.9 (1.1-1.8); Calcium 8.5 mg/dl (8.4-10.2); Globulin 2.8 g/dL (1.3-3.2); Glucose 192 mg/dl (74-100); Magnesium 1.6 mg/dl (1.6-2.3); Total Protein,Serum 5.4 g/dl (6.3-8.2)
[2019-11-25 07:06] LABS: POC Glucose,Bedside 183 (70-110)
[2019-11-25 08:00] VITALS: BP 142/83; PULSE 100; RESP 16; TEMP 37.3; O2SAT 96
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
--- NOTE | 2019-11-25 08:36 | HMH.ACPN ---
Internal Medicine - PN: Subj *Date: 11/25/19 *Time: 08:36 Exam Vital signs and Labs for Last 24 Hours: Temp Pulse Resp BP Pulse Ox 98.2 F 97 H 18 140/83 97 11/25/19 04:00 11/25/19 04:00 11/25/19 04:00 11/25/19 04:00 11/25/19 04:00 Laboratory Results - last 24 hr 11/22/19 12:53: Urine Color Yellow, Urine Appearance Cloudy, Urine pH 6.0, Ur Specific [place] 1.015, Urine Protein 2+, Urine Glucose (UA) 3+, Urine Ketones 1+, Urine Blood 2+, Urine Nitrate Negative, Urine Bilirubin Negative, Urine Urobilinogen 0.2, Ur Leukocyte Esterase 1+ A, Urine RBC 5-10, Urine WBC Tntc, Ur Squamous Epith Cells Occasional, Urine Bacteria 1+ 11/23/19 09:46: Lyme Screen IgG & IgM <0.91, Rickettsia IgG Ab EIA Negative, Rickettsia IgM Ab 0.32 11/24/19 11:23: POC Glucose 222 H 11/24/19 16:24: POC Glucose 162 H 11/24/19 23:27: POC Glucose 217 H 11/25/19 06:30: WBC 6.0, RBC 3.63 L, Hgb 9.6 L, Hct 28.9 L, MCV 79.5 L, MCH 26.4 L, MCHC 33.2, RDW 16.3, Plt Count 272, MPV 7.6, Neut % (Auto) 70.4, Lymph % (Auto) 20.2, [place] % (Auto) 7.6, Eos % (Auto) 1.5, Baso % (Auto) 0.3, Neut # (Auto) 4.2, Lymph # (Auto) 1.2, [place] # (Auto) 0.5, Eos # (Auto) 0.1, Baso # (Auto) 0.0 11/25/19 06:30: Sodium 137, Potassium 4.2, Chloride 103, Carbon Dioxide 27, Anion Gap 11.2, BUN 5 L D, Creatinine 0.50 L, Estimated Creat Clear 205, Estimated GFR 172, Est GFR ( Amer) 208, Glucose 192 H, Calcium 8.5, Magnesium 1.6, Total Bilirubin 0.3, AST 35, ALT 17, Alkaline Phosphatase 71, Total Protein 5.4 L, Albumin 2.6 L, Globulin 2.8, Albumin/Globulin Ratio 0.9 L 11/25/19 06:44: POC Glucose 183 H I & O for Last 24 hours: Intake & Output 11/22/19 11/23/19 11/24/19 11/25/19 23:59 23:59 23:59 23:59 Intake Total 1000 / 1000 2878 / 2878 1150 / 1270 2417 / 2417 Output Total 1500 / 1500 1650 / 1650 3870 / 3870 920 / 920 Balance -500 / -500 1228 / 1228 -2720 / -2600 1497 / 1497 Weight 84.17 kg 86.268 kg 88.269 kg 87.997 kg Microbiology Reports for the Last 24 Hours: Microbiology 11/22/19 12:53 Urine,Suprapubic Urine Culture - Final Enterococcus faecalis 11/22/19 12:33 Blood Blood Culture - Preliminary NO GROWTH AFTER 48 HOURS 11/22/19 12:33 Blood Blood Culture - Preliminary NO GROWTH AFTER 48 HOURS Assessment and Plan (1) Urinary tract infection Current visit: Yes Status: Acute Qualifiers: Urinary tract infection type: acute cystitis Hematuria presence: with hematuria Qualified Code(s): N30.01 - Acute cystitis with hematuria Category: Medical Code(s): N39.0 - Urinary tract infection, site not specified (2) Diabetes mellitus type 2 in nonobese Current visit: Yes Status: Acute Category: Medical Code(s): E11.9 - Type 2 diabetes mellitus without complications (3) Myalgia Current visit: Yes Status: Acute Category: Medical Code(s): M79.10 - Myalgia, unspecified site (4) Arthralgia Current visit: Yes Status: Acute Category: Medical Code(s): M25.50 - Pain in unspecified joint (5) C. difficile diarrhea Current visit: Yes Status: Acute Category: Medical Code(s): A04.72 - Enterocolitis due to Clostridium difficile, not specified as recurrent (6) Hydronephrosis Current visit: Yes Status: Acute Category: Medical Code(s): N13.30 - Unspecified hydronephrosis (7) Acute cystitis Current visit: Yes Status: Acute Category: Medical Code(s): N30.00 - Acute cystitis without hematuria The patient's infection will respond to the chosen ABx?: Yes Is the patient receiving the right drug, dose, and route?: Yes Could a more targeted ABx be ordered?: No (PO VANCOMYCIN FOR C.DIFF)
--- NOTE | 2019-11-25 10:08 | SW/DCPLANNER ---
SENT REFERRAL TO [facility] PER CHOICE FOR HOME HEALTH SERVICES...I MADE CONTACT WITH [facility] TODAY AND EXPLAINED THAT DR SALINAS FOLLOWED PATIENT DURING HIS ACUTE CARE STAY AND DR [facility] WILL SIGN ORDERS FOR HIS HOME HEALTH SERVICES... PATIENT IS GOING TO DISCHARGE LATER THIS AFTERNOON...
[2019-11-25 11:38] LABS: POC Glucose,Bedside 238 (70-110)
--- NOTE | 2019-11-25 13:28 | CT_ITS ---
PROCEDURE: CT HEAD/BRAIN WO CON CLINICAL INDICATION: hallucinations COMPARISON: No exams were available for comparison TECHNIQUE: Axial images obtained. All CT scans at the facility use one or more dose reduction, viz: automated exposure control, ma/kV adjustment per patient size (including targeted exams where dose is matched to indication, i.e. head), or iterative reconstruction technique. FINDINGS: No midline shift, mass effect, intracranial hemorrhage, hydrocephalus, or extra-axial fluid collection is evident. There is a subtle area of decreased attenuation in the inferior subinsular region on the right. This may only be related to partial volume averaging from a sulcus or part of the temporal horn of the lateral ventricle. Nonemergent MRI may confirm. The calvarium has an unremarkable appearance. No mastoid effusion. Minimal mucosal thickening is present in the ethmoid sinuses and the left sphenoid sinus. IMPRESSION: 1. No definite acute intracranial findings. 2. Subtle small area of decreased attenuation in the right temporal lobe subinsular region nonspecific and may be better evaluated with nonemergent MRI 3. Mild sinus disease Dictated by: Anderson Frederick MD 11/25/2019 14:24 Anderson Frederick MD in [place] 11/25/2019 14:24
[2019-11-25 13:45] LABS: POC Glucose,Bedside 227 (70-110)
[2019-11-25 14:33] LABS: Basophils % 0.3 % (0.1-2.0); Eosinophils # 0.1 K/mm3 (0.0-0.4); Eosinophils % 1.6 % (0.1-12.0); Hematocrit 29.6 % (42.0-52.0); Hemoglobin 9.4 g/dL (14.1-18.0); Lymphocytes # 1.4 K/mm3 (0.7-4.5); Lymphocytes % 20.9 % (10-50); Mean Corpuscular HGB Conc 31.7 g/dL (31.8-35.4); Mean Corpuscular Hemoglobin 25.3 pg (27.0-31.2); Mean Platelet Volume 7.8 fl (7.4-10.4); Monocytes # 0.4 K/mm3 (0.1-1.0); Monocytes % 6.2 % (1.7-9.3); Neutrophils # 4.9 K/mm3 (1.8-7.8); Neutrophils % 71.1 % (37.0-80.0); Platelet Count 316 K/mm3 (142-424); Red Cell Distribution Width 16.4 % (11.5-17.5); White Blood Count 6.8 K/mm3 (4.8-10.8)
[2019-11-25 14:47] LABS: Chloride 102 mmol/L (98-107); Sodium 137 mmol/L (136-145)
[2019-11-25 14:49] LABS: Creatine Kinase 98 U/L (55-170)
--- NOTE | 2019-11-25 14:49 | DIET.NUTRFU ---
Pt PO intake has improved with 75% recorded at last meal. Pt has no new nutritional questions or concerns at this time. Will continue to monitor.
[2019-11-25 14:50] LABS: Blood Urea Nitrogen 6 mg/dl (9-20); Calcium 8.5 mg/dl (8.4-10.2); Carbon Dioxide 27 mmol/L (22.0-30.0); Creatinine Clearance Estimated 205 mL/min (50-200); Estimated Glomerular Filt Rate 172 ml/min (>60); GFR (African American) 208 ML/MIN (>60); Glucose 117 mg/dl (74-100)
[2019-11-25 15:00] LABS: CKMB Relative Index 1.1 U/L (0-4.0); Creatine Kinase MB 1.1 ng/ml (0.0-2.03)
[2019-11-25 15:04] LABS: Troponin I < 0.01 ng/ml (0.00-0.034)
[2019-11-25 16:00] VITALS: BP 151/85; PULSE 86; RESP 16; TEMP 36.8; O2SAT 98
[2019-11-25 16:58] LABS: POC Glucose,Bedside 101 (70-110)
--- NOTE | 2019-11-25 19:25 | PC.NURSE ---
report given to martha
[2019-11-25 20:00] VITALS: BP 140/67; PULSE 116; RESP 18; TEMP 37.2; O2SAT 96
[2019-11-25 20:49] LABS: POC Glucose,Bedside 193 (70-110)
--- NOTE | 2019-11-25 21:07 | PC.NURSE ---
Pt alert and oriented and was being d/cd today. Upon d/c pt was having visual hallucinations of water on the wall and stuff crawling on his bed. This nurse did make Dr. Connor aware of wifes concerns this am, that pt had recently done that during his stay when speaking to her. He canceled d/c and pt is to stay overnight and has taken x 1 po dose of macrodantin- see ma, and to see how he does tonight. VSS and cb in reach. CT was done and ordered as well as stat labs in which Dr. Connor has seen this evening.
--- NOTE | 2019-11-26 03:42 | PC.NURSE ---
PT. ABLE TO STATE NAME, , YEAR AND PLACE. T/O SHIFT PT. ABLE TO FOLLOW COMMANDS WITH [employer], STRENGTH AND MOVEMENT EQUAL. FACIAL MOVEMENTS EQUAL. PT. HAS REPORTED VISUAL HALLUCINATIONS X1 BUT STATED THAT HE KNEW THAT HE WAS AT [facility] DURING THIS EPISODE AND STATES I DON'T KNOW IF I WAS DREAMING OR IF THIS IS ANXIETY. I THINK I NEED TO REST . ENCOURAGED PT. TO TURN TV AND DEVICES OFF TO FACILITATE REST. FC DRAINING BRIGHT YELLOW URINE WITH NO S/S OF INFECTION AT SITE.
[2019-11-26 04:00] VITALS: BP 143/80; PULSE 84; RESP 18; TEMP 36.9; O2SAT 96
[2019-11-26 05:54] VITALS: BMI 25.2
[2019-11-26 06:09] LABS: POC Glucose,Bedside 130 (70-110)
[2019-11-26 06:18] LABS: Potassium 4.4 mmoL/L (3.5-5.1); Sodium 139 mmol/L (136-145)
[2019-11-26 06:19] LABS: Chloride 105 mmol/L (98-107)
[2019-11-26 06:21] LABS: Anion Gap 12.4 mEq/L (5-15); Blood Urea Nitrogen 5 mg/dl (9-20); Calcium 8.5 mg/dl (8.4-10.2); Carbon Dioxide 26 mmol/L (22.0-30.0); Creatinine Clearance Estimated 201 mL/min (50-200); Estimated Glomerular Filt Rate 172 ml/min (>60); GFR (African American) 208 ML/MIN (>60); Glucose 135 mg/dl (74-100)
[2019-11-26 06:28] LABS: Basophils % 0.4 % (0.1-2.0); Eosinophils # 0.1 K/mm3 (0.0-0.4); Eosinophils % 2.2 % (0.1-12.0); Hematocrit 28.8 % (42.0-52.0); Hemoglobin 9.4 g/dL (14.1-18.0); Lymphocytes # 1.4 K/mm3 (0.7-4.5); Lymphocytes % 24.6 % (10-50); Mean Corpuscular HGB Conc 32.7 g/dL (31.8-35.4); Mean Corpuscular Hemoglobin 26.3 pg (27.0-31.2); Mean Corpuscular Volume 80.5 fl (80-94); Mean Platelet Volume 7.3 fl (7.4-10.4); Monocytes # 0.4 K/mm3 (0.1-1.0); Monocytes % 6.7 % (1.7-9.3); Neutrophils # 3.6 K/mm3 (1.8-7.8); Neutrophils % 66.1 % (37.0-80.0); Platelet Count 287 K/mm3 (142-424); Red Blood Count 3.57 M/mm3 (4.60-6.20); Red Cell Distribution Width 16.4 % (11.5-17.5); White Blood Count 5.5 K/mm3 (4.8-10.8)
[2019-11-26 07:56] VITALS: BP 140/76; PULSE 90; RESP 18; TEMP 36.9; O2SAT 97
[2019-11-26 08:00] VITALS: PULSE 90; RESP 18; O2SAT 97
== END 2019-11-26 10:25 | disposition home health service (06) | DRG 690 ==
LOC: ER 15:09 → 2ND 15:31
PROVIDERS: Admitting Provider Internal Medicine Adolescent Medicine; Emergency Provider Emergency Medicine; PCP Internal Medicine; Visit Provider Internal Medicine Adolescent Medicine
DX: N39.0 Urinary tract infection, site not specified (principal); A04.72 Enterocolitis due to Clostridium difficile, not specified as recurrent; G82.20 Paraplegia, unspecified; B95.2 Enterococcus as the cause of diseases classified elsewhere; S24.154S Other incomplete lesion at T11-T12 level of thoracic spinal cord, sequela; V89.2XXS Person injured in unspecified motor-vehicle accident, traffic, sequela; M79.10 Myalgia, unspecified site; E11.9 Type 2 diabetes mellitus without complications; Z79.84 Long term (current) use of oral hypoglycemic drugs
CPT/HCPCS: 36415; 70450; 74176; 80048; 80053; 81001; 82009; 82550; 82553; 82962; 83036; 83605; 83735; 84484; 85025; 85651; 86140; 86328; 86609; 86618; 87040; 87081; 87086; 87088; 87186; 96365; 96367; 96372; 99284; G0378; J1335; J2405; J3370

== ENCOUNTER 2019-12-14 11:41 | Outpatient (CLI) | payer OTHER, MEDICARE, SELFPAY ==
[2019-12-14 11:46] VITALS: BMI 24.6
[2019-12-14 12:19] LABS: Basophils # 0.1 K/mm3 (0-0.2); Basophils % 0.5 % (0.1-2.0); Eosinophils # 0.2 K/mm3 (0.0-0.4); Eosinophils % 1.2 % (0.1-12.0); Hematocrit 26.1 % (42.0-52.0); Lymphocytes # 2.3 K/mm3 (0.7-4.5); Lymphocytes % 19.3 % (10-50); Mean Corpuscular HGB Conc 29.9 g/dL (31.8-35.4); Mean Corpuscular Hemoglobin 25.2 pg (27.0-31.2); Mean Platelet Volume 7.8 fl (7.4-10.4); Monocytes # 0.7 K/mm3 (0.1-1.0); Monocytes % 5.5 % (1.7-9.3); Neutrophils # 8.7 K/mm3 (1.8-7.8); Neutrophils % 73.4 % (37.0-80.0); Platelet Count 478 K/mm3 (142-424); Red Cell Distribution Width 16.6 % (11.5-17.5); White Blood Count 11.9 K/mm3 (4.8-10.8)
[2019-12-14 12:24] LABS: Hemoglobin 7.8 g/dL (14.1-18.0)
[2019-12-14 12:32] LABS: Hemoglobin A1C 9.1 % (4.0-6.0)
[2019-12-14 12:35] LABS: Alanine Aminotransferase 61 U/L (12-78); Albumin Level 3.4 g/dl (3.5-5.0); Alkaline Phosphatase 126 U/L (38-126); Anion Gap 13.6 mEq/L (5-15); Aspartate Amino Transferase 34 U/L (17-59); Bilirubin,Total 0.3 mg/dl (0.2-1.3); Blood Urea Nitrogen 31 mg/dl (9-20); Calcium 9.8 mg/dl (8.4-10.2); Carbon Dioxide 29 mmol/L (22.0-30.0); Chloride 101 mmol/L (98-107); Creatinine Clearance Estimated 124 mL/min (50-200); Estimated Glomerular Filt Rate 100 ml/min (>60); GFR (African American) 121 ML/MIN (>60); Globulin 3.4 g/dL (1.3-3.2); Glucose 201 mg/dl (74-100); Potassium 5.6 mmoL/L (3.5-5.1); Sodium 138 mmol/L (136-145); Total Protein,Serum 6.8 g/dl (6.3-8.2); Uric Acid 5.5 mg/dl (3.5-8.5)
[2019-12-14 12:41] LABS: Erythrocyte Sedimentation Rate > 140 mm/hr (0-20)
[2019-12-14 13:06] LABS: Microscopic, Urine URINE MICROSCOPIC (MICROSCOPIC)
[2019-12-14 13:13] LABS: Appearance,Urine CLOUDY (Clear); Blood, Urine 3+ (Negative); Color,Urine YELLOW (Yellow); Glucose,Urine (UA) Negative (Negative); Ketones,Urine TRACE (Negative); Leukocyte Esterase,Urine 2+ (Negative); Nitrate,Urine Negative (Negative); PH,Urine 5.5 (5.0-8.5); Protein,Urine 3+ (Negative); Specific Gravity, Urine 1.025 (1.005-1.030); Urobilinogen,Urine 0.2 EU/dl (0.2)
[2019-12-14 13:14] LABS: Bilirubin,Urine 1+ (Negative)
[2019-12-14 13:30] LABS: Bacteria,Urine 2+ /lpf; RBC,Urine 20-50 #/hpf (0-3); Squamous Epithelial Cell,Urine Occasional #/hpf (0-5)
--- NOTE | 2019-12-14 14:44 | PC.NURSE ---
1249 UA collected from mohan cath per MD order. Urine appears bennett, cloudy, slightly bloody. Patient tolerated collection of urine specimen without problems
[2019-12-15 12:24] LABS: RA Latex Turbid. 12.3 IU/mL (0.0-13.9)
== END 2019-12-14 13:15 | disposition home or self-care (01) ==
LOC: INF 11:41
PROVIDERS: PCP Internal Medicine; Visit Provider Internal Medicine
DX: N39.0 Urinary tract infection, site not specified (principal); A04.72 Enterocolitis due to Clostridium difficile, not specified as recurrent; M79.10 Myalgia, unspecified site
CPT/HCPCS: 36415; 80053; 81001; 83036; 84550; 85025; 85651; 86431; 86850; 87086; 87088; 87186

== ENCOUNTER 2019-12-15 09:36 | Outpatient (CLI) | payer OTHER, MEDICARE, SELFPAY ==
[2019-12-15] VITALS (21 sets, daily range): BP systolic 83–119; BP diastolic 49–74; PULSE 67–126; RESP 18–20; TEMP 35.7–36.4; O2SAT 95; BMI 24.6
--- NOTE | 2019-12-15 10:10 | PC.NURSE ---
Vitals were taken and went to lab at 0945 to bean picker the first unit of PRBC's. Verified the unit at bedside with Eunice Velasquez RN. I then went to spike the bag and initiate the infusion; Once back on to the computer the unit then said issued only; Eunice then got another computer and reverified the unit. The first time it was verfied at 0950 then again at 0955. The unit was started at 0955; MIS aware of the situation and all issues have been documented.
--- NOTE | 2019-12-15 12:00 | PC.NURSE ---
1200-got report on pt from katerine padilla to take over pt at this time.
[2019-12-15 15:05] LABS: Hematocrit 29.7 % (42.0-52.0); Hemoglobin 9.1 g/dL (14.1-18.0)
== END 2019-12-15 15:21 | disposition home or self-care (01) ==
LOC: INF 09:36
PROVIDERS: Visit Provider Internal Medicine
DX: D64.9 Anemia, unspecified (principal)
CPT/HCPCS: 36430; 85014; 85018; P9016

== ENCOUNTER → 2020-01-13 08:23 | Outpatient (CLI) | payer OTHER, MEDICARE, SELFPAY ==
--- NOTE | 2020-01-13 08:23 | CT_ITS ---
PROCEDURE: CT ABDOMEN PELVIS WO CON CLINICAL INDICATION: RECURRENT UTIS COMPARISON: CT CT ABDOMEN PELVIS WO CON from 11/22/2019 TECHNIQUE: Axial images obtained with sagittal and coronal reformats. All CT scans at the facility use one or more dose reduction, viz: automated exposure control, ma/kV adjustment per patient size (including targeted exams where dose is matched to indication, i.e. head), or iterative reconstruction technique. FINDINGS: LOWER THORAX: No acute finding ABDOMEN & PELVIS: There has been a prior cholecystectomy. The liver, spleen, adrenal glands, pancreas, and kidneys have an unremarkable unenhanced appearance. No renal or ureteral calculi. No obvious renal mass on this unenhanced exam. No intestinal obstruction or free air is evident. There is a mild amount of retained colonic feces. No evidence of appendicitis. There is a left lower quadrant ileostomy. There is moderate thickening of the urinary bladder wall with some minimal infiltration of the fat around the urinary bladder. No pelvic adenopathy or abnormal fluid collections. There is some soft tissue thickening in the medial aspect of the left buttock at the infra gluteal fold with some soft tissue calcification also in this area. Please correlate clinically as the possibility of underlying inflammatory/infective changes. There is diffuse osteopenia. There is mild lumbar scoliosis convex left. Mild osteoarthritic changes are present in the hips. Postsurgical changes are present in the lower thoracic spine. Old mild wedging L2 and L1 IMPRESSION: 1. Extensive thickening of the urinary bladder wall with mild stranding of the fat around the urinary bladder. Chronic cystitis is considered. A neoplastic process is not excluded. Overall not significantly changed. 2. Thickening of the subcutaneous soft tissues in the medial aspect of the left inferior gluteal fold area posterior to the anal verge on the left which may represent underlying inflammatory/infectious process. There is some calcification also noted at this region. 3. Other nonacute findings as described above. Dictated by: Anderson Frederick MD 01/14/2020 08:31 Anderson Frederick MD in [facility] 01/14/2020 08:31
== END ==
PROVIDERS: PCP Internal Medicine; Visit Provider Urology
DX: N39.0 Urinary tract infection, site not specified (principal)
CPT/HCPCS: 74176

== ENCOUNTER → 2020-01-16 09:17 | Outpatient (CLI) | payer OTHER, MEDICARE, SELFPAY ==
[2020-01-16 12:53] LABS: Coronavirus 19 IgG Antibody Negative (Negative); Coronavirus 19 IgM Antibody Negative (Negative)
== END ==
PROVIDERS: Visit Provider Urology
DX: Z01.818 Encounter for other preprocedural examination (principal); N39.0 Urinary tract infection, site not specified
CPT/HCPCS: 36415; 86328

== ENCOUNTER 2020-01-18 08:28 | Day surgery (SDC) | payer OTHER, MEDICARE, SELFPAY ==
[2020-01-14 14:37] VITALS: BMI 24.6
[2020-01-18 09:13] VITALS: BP 130/65; PULSE 100; RESP 18; TEMP 36.4; O2SAT 99
[2020-01-18 09:21] LABS: POC Glucose,Bedside 180 (70-110)
[2020-01-18 10:29] VITALS: BP 130/78; PULSE 83; RESP 16; TEMP 36.6; O2SAT 99
--- NOTE | 2020-01-18 12:11 | P.OP_ITS ---
Date of procedure: 01/18/20 Pre-op Diagnosis:: Recurring urinary tract infections Post-op Diagnosis:: Same Procedure performed:: Cystoscopy with bladder irrigation Surgeon:: Luiz Senior MD Anesthesia: local Estimated blood loss (mL): 0 Clinical Note:: Patient is a 54-year-old white male with history of paraplegia. He has been self cathing for 17 years but has been having some recurring urinary tract infections over the past few months. Infections are characterized by nocturnal enuresis and milky colored urine on catheterization. He is currently on amoxicillin for recent urinary tract infection. Operative findings:: Cystoscopy reveals a lot of sediment in the bladder and evidence of hemorrhagic cystitis as well as large capacity bladder with neurogenic changes consisting of the thick-walled bladder and [place] tree shaped bladder. Operative note:: Patient taken to the treatment room after informed consent was obtained. On the stretcher is prepped and draped in the standard surgical fashion. Since he is a paraplegic no local anesthetic was used. The flexible cystoscope introduced into the urethral meatus. There was a bit of narrow areas involved but the scope passed through without difficulty. Prostatic urethra was not obstructing. The bladder was entered and upon entering there is noted to be a large amount of sediment and debris in the bladder. It was difficult to visualize the entirety of the bladder so the scope was removed and a 16 [place] catheter was placed into the bladder and the bladder drained and irrigated with sterile saline with bulb syringe. The bladder again drained the [place] and the cystoscope was replaced. Visualization was now much better there is noted to be some patchy erythematous areas in the floor of the bladder and along the left lateral side. Well demarcated area was noted. It appeared to be a [place] tree shaped bladder with early 2 compartments. 1 compartment was deeper than another 1 that was closer to the bladder neck and around the trigonal region. There was more sediment noted in the more proximal portion of the bladder than the distal. There is no evidence of bladder tumors. Scope removed and patient tolerated well. We discussed the findings today and the nurse summarized as a neurogenic bladder with [place] tree shaped and incomplete emptying of the bladder catheterizations. There is also evidence of hemorrhagic cystitis. I discussed with patient and his how to catheterize in order to empty the bladder out more completely. We are also going to insulin to some bladder irrigation with sterile water once a day. A prescription for Macrobid 100 mg daily was also given for the hemorrhagic cystitis. We will plan on seeing him back again in 3 months with cystoscopy to evaluate the erythematous areas. If they are not improved we discussed possible bladder biopsy of these areas to rule out carcinoma in situ. Condition: stable Disposition: same day Specimens:: None Complications:: None
== END 2020-01-18 10:44 | disposition home or self-care (01) ==
LOC: OUTP 08:30
PROVIDERS: PCP Internal Medicine; Visit Provider Urology
PROC: (CPT 51700; principal; 2020-01-18 09:30)
DX: N30.91 Cystitis, unspecified with hematuria (principal); N31.9 Neuromuscular dysfunction of bladder, unspecified; N32.89 Other specified disorders of bladder; Z87.440 Personal history of urinary (tract) infections; G82.20 Paraplegia, unspecified; Z79.899 Other long term (current) drug therapy
CPT/HCPCS: 51700; 82962

== ENCOUNTER → 2020-05-07 12:31 | Outpatient (CLI) | payer OTHER, MEDICARE, SELFPAY ==
[2020-05-07 14:32] LABS: Coronavirus 19 IgG Antibody Negative (Negative); Coronavirus 19 IgM Antibody Negative (Negative)
== END ==
PROVIDERS: Visit Provider Urology
DX: N31.9 Neuromuscular dysfunction of bladder, unspecified (principal)
CPT/HCPCS: 36415; 86328

== ENCOUNTER 2020-05-09 08:32 | Day surgery (SDC) | payer OTHER, MEDICARE, SELFPAY ==
[2020-04-19 11:11] VITALS: BMI 24.4
[2020-05-09 08:57] VITALS: BP 115/69; PULSE 103; RESP 18; TEMP 36.1; O2SAT 97
[2020-05-09 09:06] LABS: POC Glucose,Bedside 370 (70-110)
[2020-05-09 09:45] VITALS: BP 128/80; PULSE 78; RESP 16; TEMP 36.4; O2SAT 99
--- NOTE | 2020-05-09 10:40 | HMH.OPNOTE ---
Date of procedure: 05/09/20 Pre-op Diagnosis:: History of neurogenic bladder/history of recurrent UTIs Post-op Diagnosis:: Urethral stricture/history of neurogenic bladder/history of recurrent UTIs Procedure performed:: Cystoscopy with dilation of urethral stricture Surgeon:: Luiz Senior MD Anesthesia: none Estimated blood loss (mL): 0 Clinical Note:: Patient is a 54-year-old white male with history of neurogenic bladder secondary to the T8 spinal cord injury. He has a history of recurrent urinary tract infections and has been on clean intermittent cath since his injury several years ago. At his last cystoscopy there was some erythematous patchy areas in the bladder the presents for reevaluation of these. In the interim he denies any recurrent UTIs. He has been on prophylactic Macrobid 100 mg a day as well as doing some bladder irrigation. Operative findings:: Cystoscopy revealed a wide caliber stricture just distal to the verumontanum. The prostate was not obstructing. The bladder still showed some particulate debris. The previously noted hemorrhagic and patchy erythema has resolved. There is no evidence of any suspicious bladder mucosal tissue. Operative note:: Patient taken to the operating suite after consent was obtained. On the stretcher he was prepped and draped in the standard surgical fashion. He is paralyzed from the waist down and no anesthesia was necessary. A 16 [place] cystoscope passed into the urethral meatus and to the bulbar urethra where a narrow area was noted. The 16 [place] scope was able to pass into the and through the narrowing minimal difficulty. The prostate was visualized and there was no evidence of obstructing lobes. The bladder was entered and examined in a systematic fashion. There was some particulate debris present. The bladder is noted to be of a [place] tree shaped consistent with a neurogenic bladder. The previously noted patchy erythematous areas along the floor of the bladder were no longer present and there was no evidence of any mucosal suspicious abnormalities. The cystoscope then removed and the urethra was dilated with a 20, 22, 24 [place] Gaurav sound. There was a pop to passage of the 22 [place] sound through the strictured area. There is no evidence of any bleeding. Patient tolerated procedure well there are no complications. He will continue to catheterize every 4-6 hours and we discussed irrigation with a bulb syringe as he is doing a little more vigorously and to continue the Macrobid 100 mg prophylaxis. We will see back in 1 year with cystoscopy. Condition: stable Disposition: same day Specimens:: None Complications:: None
== END 2020-05-09 09:56 | disposition home or self-care (01) ==
PROVIDERS: PCP Internal Medicine; Visit Provider Urology
PROC: (CPT 52281; principal; 2020-05-09 09:00)
DX: N35.819 Other urethral stricture, male, unspecified site (principal); S24.103A Unspecified injury at T7-T10 level of thoracic spinal cord, initial encounter; N31.8 Other neuromuscular dysfunction of bladder; Z87.440 Personal history of urinary (tract) infections; E78.5 Hyperlipidemia, unspecified; I10 Essential (primary) hypertension; E11.9 Type 2 diabetes mellitus without complications; Z79.84 Long term (current) use of oral hypoglycemic drugs; Z79.899 Other long term (current) drug therapy
CPT/HCPCS: 52281; 82962

== ENCOUNTER → 2020-07-01 15:59 | Outpatient (CLI) | payer OTHER, MEDICARE, SELFPAY | PROVIDERS: Visit Provider Urology | DX: N39.0 Urinary tract infection, site not specified (principal) | CPT/HCPCS: 87086; 87088; 87186 ==

== ENCOUNTER 2020-07-24 14:31 | Emergency (ER) | payer OTHER, MEDICARE, SELFPAY ==
[2020-07-24] VITALS (7 sets, daily range): BP systolic 121–151; BP diastolic 75–86; PULSE 65–83; RESP 15–18; TEMP 36.6–36.8; O2SAT 98–99; BMI 24.4
[2020-07-24 14:56] LABS: Basophils % 0.4 % (0.1-2.0); Eosinophils # 0.1 K/mm3 (0.0-0.4); Eosinophils % 1.3 % (0.1-12.0); Hematocrit 42.1 % (42.0-52.0); Hemoglobin 13.8 g/dL (14.1-18.0); Lymphocytes # 1.5 K/mm3 (0.7-4.5); Lymphocytes % 18.1 % (10-50); Mean Corpuscular HGB Conc 32.6 g/dL (31.8-35.4); Mean Corpuscular Hemoglobin 26.3 pg (27.0-31.2); Mean Corpuscular Volume 80.5 fl (80-94); Mean Platelet Volume 7.4 fl (7.4-10.4); Monocytes # 0.3 K/mm3 (0.1-1.0); Monocytes % 3.9 % (1.7-9.3); Neutrophils # 6.4 K/mm3 (1.8-7.8); Neutrophils % 76.4 % (37.0-80.0); Platelet Count 333 K/mm3 (142-424); Red Blood Count 5.23 M/mm3 (4.60-6.20); Red Cell Distribution Width 14.5 % (11.5-17.5); White Blood Count 8.3 K/mm3 (4.8-10.8)
--- NOTE | 2020-07-24 15:01 | HMH.EDGENADL ---
ED Disposition Clinical Impression: UTI (urinary tract infection) Qualifiers: Urinary tract infection type: acute cystitis Hematuria presence: without hematuria Qualified Code(s): N30.00 - Acute cystitis without hematuria Disposition: Home, Self-Care Condition on Discharge: Fair Prescriptions: Ondansetron [Zofran 4mg ODT] 4 mg PO Q6H PRN #8 tab.rapdis PRN Reason: Nausea Prescription Printed Referrals: Duc Shi [Primary Care Provider] - - Critical Care Critical Care Time: No Attestation: On 07/24/20, the high probability of a clinically significant, sudden or life threatening deterioration of the following system(s) required my full and direct attention, intervention and personal management. The time I documented below is in addition to time spent performing reported procedures but includes the following listed in this critical care notation. Medical Decision Making - Medical Records Medical records reviewed: Yes: I reviewed the patient's medical records. - Gui Inquiry Pt receiving controlled substance: No Vital Signs: 07/24/20 14:32 07/24/20 15:00 07/24/20 15:33 Temperature 97.9 F Temperature Source Oral Pulse Rate 65 74 Pulse Rate [Left Radial] 73 Respiratory Rate 18 16 16 Blood Pressure 146/83 H 145/81 H Blood Pressure [Left Arm] 147/81 H Blood Pressure Mean 104 107 Blood Pressure Mean [Left Arm] 103 Blood Pressure Source [Left Arm] Automatic Cuff Blood Pressure Position [Left Arm] Sitting 02 Sat by Pulse Oximetry 98 98 99 Oxygen Delivery Method Room Air 07/24/20 16:00 Temperature Temperature Source Pulse Rate 74 Pulse Rate [Left Radial] Respiratory Rate 18 Blood Pressure 148/84 H Blood Pressure [Left Arm] Blood Pressure Mean 105 Blood Pressure Mean [Left Arm] Blood Pressure Source [Left Arm] Blood Pressure Position [Left Arm] 02 Sat by Pulse Oximetry 99 Oxygen Delivery Method - Lab Data Lab Results 07/24/20 14:40: WBC 8.3, RBC 5.23, Hgb 13.8 L, Hct 42.1, MCV 80.5, MCH 26.3 L, MCHC 32.6, RDW 14.5, Plt Count 333, MPV 7.4, Neut % (Auto) 76.4, Lymph % (Auto) 18.1, [place] % (Auto) 3.9, Eos % (Auto) 1.3, Baso % (Auto) 0.4, Neut # (Auto) 6.4, Lymph # (Auto) 1.5, [place] # (Auto) 0.3, Eos # (Auto) 0.1, Baso # (Auto) 0.0 07/24/20 14:40: Sodium 138, Potassium 4.5, Chloride 102, Carbon Dioxide 28, Anion Gap 12.5, BUN 11, Creatinine 0.70, Estimated Creat Clear 138, Estimated GFR 116, Est GFR ( Amer) 141, Glucose 236 H, Calcium 9.5, Total Bilirubin 0.5, AST 23, ALT 12, Alkaline Phosphatase 91, Total Protein 7.5, Albumin 4.1, Globulin 3.4 H, Albumin/Globulin Ratio 1.2 07/24/20 14:40: Lactate 0.8 07/24/20 14:40: Lipase 135 07/24/20 15:30: Urine Color Yellow, Urine Appearance Cloudy, Urine pH 6.0, Ur Specific [place] 1.020, Urine Protein 2+, Urine Glucose (UA) Trace, Urine Ketones 1+, Urine Blood 1+, Urine Nitrate Negative, Urine Bilirubin Negative, Urine Urobilinogen 0.2, Ur Leukocyte Esterase 2+ A, Urine RBC 5-10, Urine WBC 20-50, Ur Squamous Epith Cells 3-5, Amorphous Sediment 1+, Urine Bacteria None Result diagrams: 07/24/20 14:40 07/24/20 14:40 Orders (Tests/Meds): ED MEDICATIONS Generic Name Dose Route Start Last Admin Trade Name Freq PRN Reason Stop Dose Admin Sodium Chloride 1,000 mls @ 999 mls/hr 07/24/20 16:45 07/24/20 17:00 Sod Chlor 0.9% 1000ml Bag IV 07/24/20 17:45 999 mls/hr .Q1H1M CRISTELA Administration Discontinued Medications Generic Name Dose Route Start Last Admin Trade Name Freq PRN Reason Stop Dose Admin Cefdinir 300 mg 07/25/20 18:28 Cefdinir 300mg Capsule PO 07/25/20 18:29 ONCE ONE Protocol Cefdinir 300 mg 07/24/20 18:28 07/24/20 18:36 Cefdinir 300mg Capsule PO 07/24/20 18:29 300 mg ONCE ONE Administration Protocol Gabapentin 600 mg 07/24/20 14:56 07/24/20 15:08 Gabapentin 300mg Capsule PO 07/24/20 14:57 600 mg ONCE ONE Administration Sodium Chloride 1,000 mls @ 999
[2020-07-24 15:07] LABS: Alanine Aminotransferase 12 U/L (12-78); Albumin Level 4.1 g/dl (3.5-5.0); Albumin/Globulin Ratio 1.2 (1.1-1.8); Alkaline Phosphatase 91 U/L (38-126); Anion Gap 12.5 mEq/L (5-15); Aspartate Amino Transferase 23 U/L (17-59); Bilirubin,Total 0.5 mg/dl (0.2-1.3); Blood Urea Nitrogen 11 mg/dl (9-20); Calcium 9.5 mg/dl (8.4-10.2); Carbon Dioxide 28 mmol/L (22.0-30.0); Chloride 102 mmol/L (98-107); Creatinine Clearance Estimated 138 mL/min (50-200); Estimated Glomerular Filt Rate 116 ml/min (>60); GFR (African American) 141 ML/MIN (>60); Globulin 3.4 g/dL (1.3-3.2); Glucose 236 mg/dl (74-100); Lactic Acid 0.8 mmol/L (0.7-2.1); Potassium 4.5 mmoL/L (3.5-5.1); Sodium 138 mmol/L (136-145); Total Protein,Serum 7.5 g/dl (6.3-8.2)
[2020-07-24 15:08] LABS: Lipase 135 U/L (23-300)
[2020-07-24 15:44] LABS: Microscopic, Urine URINE MICROSCOPIC (MICROSCOPIC)
[2020-07-24 15:48] LABS: Appearance,Urine CLOUDY (Clear); Bilirubin,Urine Negative (Negative); Blood, Urine 1+ (Negative); Color,Urine YELLOW (Yellow); Glucose,Urine (UA) TRACE (Negative); Ketones,Urine 1+ (Negative); Leukocyte Esterase,Urine 2+ (Negative); Nitrate,Urine Negative (Negative); Protein,Urine 2+ (Negative); Urobilinogen,Urine 0.2 EU/dl (0.2)
[2020-07-24 15:57] LABS: Amorphous Sediment,Urine 1+ /lpf; WBC,Urine 20-50 #/hpf (0-3)
--- NOTE | 2020-07-24 16:51 | PC.NURSE ---
DR MUSTAPHA RYDER
== END 2020-07-24 20:09 | disposition home or self-care (01) ==
PROVIDERS: Emergency Provider Emergency Medicine; PCP Internal Medicine
DX: N30.00 Acute cystitis without hematuria (principal); E11.9 Type 2 diabetes mellitus without complications; E78.5 Hyperlipidemia, unspecified; I10 Essential (primary) hypertension; Z79.899 Other long term (current) drug therapy; G82.20 Paraplegia, unspecified
CPT/HCPCS: 80053; 81001; 83605; 83690; 85025; 87040; 87086; 96365; 96366; 99283; J2405

== ENCOUNTER → 2020-09-07 16:22 | Outpatient (CLI) | payer OTHER, MEDICARE, SELFPAY ==
[2020-09-07 16:33] LABS: Basophils % 0.5 % (0.1-2.0); Eosinophils # 0.1 K/mm3 (0.0-0.4); Eosinophils % 2.3 % (0.1-12.0); Hematocrit 35.2 % (42.0-52.0); Hemoglobin 11.6 g/dL (14.1-18.0); Lymphocytes # 1.8 K/mm3 (0.7-4.5); Lymphocytes % 28.4 % (10-50); Mean Corpuscular Hemoglobin 26.8 pg (27.0-31.2); Mean Corpuscular Volume 81.2 fl (80-94); Mean Platelet Volume 7.8 fl (7.4-10.4); Monocytes # 0.4 K/mm3 (0.1-1.0); Monocytes % 5.9 % (1.7-9.3); Neutrophils # 3.9 K/mm3 (1.8-7.8); Neutrophils % 62.9 % (37.0-80.0); Platelet Count 242 K/mm3 (142-424); Red Blood Count 4.34 M/mm3 (4.60-6.20); Red Cell Distribution Width 15.4 % (11.5-17.5); White Blood Count 6.2 K/mm3 (4.8-10.8)
[2020-09-07 17:24] LABS: Hemoglobin A1C 9.5 % (4.0-6.0)
[2020-09-07 18:23] LABS: Chloride 99 mmol/L (98-107); Potassium 4.7 mmoL/L (3.5-5.1); Sodium 139 mmol/L (136-145)
[2020-09-07 18:25] LABS: Blood Urea Nitrogen 13 mg/dl (9-20); Estimated Glomerular Filt Rate 116 ml/min (>60); GFR (African American) 141 ML/MIN (>60)
[2020-09-07 18:26] LABS: Alanine Aminotransferase 16 U/L (12-78); Albumin Level 3.9 g/dl (3.5-5.0); Albumin/Globulin Ratio 1.4 (1.1-1.8); Alkaline Phosphatase 92 U/L (38-126); Anion Gap 19.7 mEq/L (5-15); Aspartate Amino Transferase 19 U/L (17-59); Bilirubin,Total 0.5 mg/dl (0.2-1.3); Calcium 9.2 mg/dl (8.4-10.2); Carbon Dioxide 25 mmol/L (22.0-30.0); Chol/HDL Ratio 7.4 (1-3.5); Cholesterol 178 mg/dl (140-200); Globulin 2.8 g/dL (1.3-3.2); Glucose 268 mg/dl (74-100); HDL Cholesterol 24 mg/dl (40-60); Total Protein,Serum 6.7 g/dl (6.3-8.2); Triglycerides 263 mg/dl (30-150); VLDL Cholesterol 53 mg/dL (0-40)
[2020-09-07 18:37] LABS: Direct LDL Cholesterol 112.86 mg/dL (100-129)
== END ==
PROVIDERS: Visit Provider Internal Medicine
DX: E11.65 Type 2 diabetes mellitus with hyperglycemia (principal); M19.90 Unspecified osteoarthritis, unspecified site; N13.9 Obstructive and reflux uropathy, unspecified; E78.5 Hyperlipidemia, unspecified; G82.21 Paraplegia, complete
CPT/HCPCS: 80053; 80061; 83036; 85025

== ENCOUNTER → 2021-02-28 11:03 | Outpatient (CLI) | payer OTHER, MEDICARE, SELFPAY ==
--- NOTE | 2021-02-28 11:29 | ECG_ITS ---
APPROVED REPORT Exam: Resting ECG HR:121 bpm ECG Measurements Heart Rate 121 AXES [place] 162 P 59 QRSd 86 QRS 75 QT 292 T 63 QTc 414 Conclusion Sinus tachycardia Otherwise normal ECG Electronically signed by : Duc Shi MD 03/17/2021 13:49:08
[2021-02-28 12:32] LABS: Basophils % 0.7 % (0.1-2.0); Eosinophils % 0.6 % (0.1-12.0); Hematocrit 41.5 % (42.0-52.0); Hemoglobin 13.4 g/dL (14.1-18.0); Lymphocytes % 17.4 % (10-50); Mean Corpuscular HGB Conc 32.3 g/dL (31.8-35.4); Mean Corpuscular Hemoglobin 30.1 pg (27.0-31.2); Mean Corpuscular Volume 93.3 fl (80-94); Mean Platelet Volume 8.5 fl (7.4-10.4); Monocytes # 0.4 K/mm3 (0.1-1.0); Monocytes % 7.6 % (1.7-9.3); Neutrophils # 4.2 K/mm3 (1.8-7.8); Neutrophils % 73.7 % (37.0-80.0); Platelet Count 188 K/mm3 (142-424); Red Blood Count 4.45 M/mm3 (4.60-6.20); Red Cell Distribution Width 13.6 % (11.5-17.5); White Blood Count 5.7 K/mm3 (4.8-10.8)
[2021-02-28 13:39] LABS: Chloride 96 mmol/L (98-107)
[2021-02-28 13:40] LABS: Potassium 4.2 mmoL/L (3.5-5.1); Sodium 138 mmol/L (136-145)
[2021-02-28 13:42] LABS: Alanine Aminotransferase 18 U/L (12-78); Aspartate Amino Transferase 23 U/L (17-59); Blood Urea Nitrogen 13 mg/dl (9-20); Carbon Dioxide 30 mmol/L (22.0-30.0); Estimated Glomerular Filt Rate 100 ml/min (>60); GFR (African American) 121 ML/MIN (>60)
[2021-02-28 13:43] LABS: Albumin Level 4.3 g/dl (3.5-5.0); Albumin/Globulin Ratio 1.7 (1.1-1.8); Alkaline Phosphatase 64 U/L (38-126); Bilirubin,Total 0.3 mg/dl (0.2-1.3); Calcium 9.4 mg/dl (8.4-10.2); Chol/HDL Ratio 5.9 (1-3.5); Cholesterol 130 mg/dl (140-200); Globulin 2.6 g/dL (1.3-3.2); Glucose 71 mg/dl (74-100); HDL Cholesterol 22 mg/dl (40-60); Total Protein,Serum 6.9 g/dl (6.3-8.2); Triglycerides 185 mg/dl (30-150); VLDL Cholesterol 37 mg/dL (0-40)
[2021-02-28 13:44] LABS: Anion Gap 16.2 mEq/L (5-15)
[2021-02-28 13:54] LABS: Direct LDL Cholesterol 83.82 mg/dL (100-129)
[2021-02-28 14:03] LABS: Hemoglobin A1C 5.8 % (4.0-6.0)
== END ==
PROVIDERS: PCP Internal Medicine; Visit Provider Internal Medicine
DX: R00.0 Tachycardia, unspecified (principal)
CPT/HCPCS: 80053; 80061; 83036; 85025; 93005

== ENCOUNTER → 2021-05-05 11:09 | Outpatient (CLI) | payer OTHER, MEDICARE, SELFPAY | PROVIDERS: PCP Internal Medicine; Visit Provider Urology | DX: Z01.812 Encounter for preprocedural laboratory examination (principal); Z11.52 Encounter for screening for COVID-19; N39.0 Urinary tract infection, site not specified | CPT/HCPCS: C9803; U0003; U0005 ==

== ENCOUNTER 2021-05-08 08:38 | Day surgery (SDC) | payer OTHER, MEDICARE, SELFPAY ==
[2021-05-04 12:27] VITALS: BMI 24.4
[2021-05-08 08:54] VITALS: BP 104/80; PULSE 83; RESP 16; TEMP 36.5; O2SAT 98
[2021-05-08 10:05] VITALS: BP 132/59; PULSE 76; RESP 18; TEMP 36.2; O2SAT 97
--- NOTE | 2021-05-08 10:12 | P.OP_ITS ---
Date of procedure: 05/08/21 Pre-op Diagnosis:: History of neurogenic bladder and recurrent urinary tract infections/history of urethral stricture Post-op Diagnosis:: Neurogenic bladder, recurrent urinary tract infections, bulbar urethral stricture Procedure performed:: Cystoscopy with urethral dilation Surgeon:: Luiz Senior MD Anesthesia: local Estimated blood loss (mL): 0 Clinical Note:: Patient is a 55-year-old white male with history of paraplegia and resultant neurogenic bladder catheterizes intermittently and has a history of some abnormal appearing tissue in his bladder and recurrent urinary tract infections as well as a bulbar urethral stricture. He states he has been doing well with that urinary tract infections and continues on prophylactic Bactrim. He also states he is catheterizing without difficulty with a straight catheter. Operative findings:: Cystoscopy reveals no evidence of suspicious bladder findings. A small amount of debris noted in the bladder and a bulbar urethral stenosis was noted and dilated. Operative note:: Patient taken to the cystoscopy suite after informed consent was obtained. On the stretcher he was prepped and draped in the standard surgical fashion. The flexible cystoscope introduced into the urethra and passed to the prostatic urethra where there was some mild mild resistance to passage. The bladder was entered and examined in a systematic fashion. No mucosal abnormalities or diverticula were noted. Some mild trabeculation noted along the floor. The ureteral orifices were well away from the bladder neck. Small amount of debris was noted in the bladder base. The scope then removed and the urethra was dilated with a 22 and 24 [place] sound without difficulty. We discussed the findings and his bladder is looked good for a couple of years now without any suspicious findings and he is doing much better job at emptying his bladder with catheterization. He will follow up for cystoscopy on an as needed basis. He will continue the prophylactic Bactrim. Condition: stable Disposition: same day Specimens:: None Complications:: None
[2021-05-08 10:15] VITALS: BP 132/59; PULSE 76; RESP 18; O2SAT 97
[2021-11-30 10:57] LABS: POC Glucose,Bedside 151 (70-110)
== END 2021-05-08 10:18 | disposition home or self-care (01) ==
LOC: OUTP 08:41
PROVIDERS: PCP Internal Medicine; Visit Provider Urology
PROC: (CPT 52281; principal; 2021-05-08 09:30)
DX: N35.812 Other bulbous urethral stricture, male (principal); N31.9 Neuromuscular dysfunction of bladder, unspecified; Z87.440 Personal history of urinary (tract) infections; E11.9 Type 2 diabetes mellitus without complications; E78.5 Hyperlipidemia, unspecified; I10 Essential (primary) hypertension; Z88.7 Allergy status to serum and vaccine; Z79.84 Long term (current) use of oral hypoglycemic drugs; Z79.899 Other long term (current) drug therapy
CPT/HCPCS: 52281; 82962

== ENCOUNTER → 2021-10-06 16:52 | Outpatient (CLI) | payer OTHER, MEDICARE, SELFPAY | PROVIDERS: PCP Internal Medicine; Visit Provider Internal Medicine | DX: N39.0 Urinary tract infection, site not specified (principal); B96.1 Klebsiella pneumoniae [K. pneumoniae] as the cause of diseases classified elsewhere | CPT/HCPCS: 87086; 87088; 87186 ==

== ENCOUNTER 2021-10-09 13:48 | Outpatient (CLI) | payer OTHER, MEDICARE, SELFPAY ==
[2021-10-09 14:25] VITALS: BP 144/87; PULSE 106; RESP 18; TEMP 36.7; O2SAT 96
== END 2021-10-09 14:25 | disposition home or self-care (01) ==
LOC: INF 13:50
PROVIDERS: PCP Internal Medicine; Visit Provider Internal Medicine
DX: N39.0 Urinary tract infection, site not specified (principal); B96.1 Klebsiella pneumoniae [K. pneumoniae] as the cause of diseases classified elsewhere
CPT/HCPCS: 96372; J0696

== ENCOUNTER 2021-10-10 14:05 | Outpatient (CLI) | payer OTHER, MEDICARE, SELFPAY ==
[2021-10-10 14:40] VITALS: BP 149/72; PULSE 96; RESP 18; TEMP 36.4; O2SAT 99
== END 2021-10-10 14:40 | disposition home or self-care (01) ==
LOC: INF 14:07
PROVIDERS: PCP Internal Medicine; Visit Provider Internal Medicine
DX: N39.0 Urinary tract infection, site not specified (principal); B96.1 Klebsiella pneumoniae [K. pneumoniae] as the cause of diseases classified elsewhere
CPT/HCPCS: 96372; J0696

== ENCOUNTER 2021-10-11 14:02 | Outpatient (CLI) | payer OTHER, MEDICARE, SELFPAY ==
[2021-10-11 14:23] VITALS: BP 160/99; PULSE 86; RESP 18; TEMP 35.9; O2SAT 98
== END 2021-10-11 14:25 | disposition home or self-care (01) ==
LOC: INF 14:04
PROVIDERS: PCP Internal Medicine; Visit Provider Internal Medicine
DX: N39.0 Urinary tract infection, site not specified (principal); B96.1 Klebsiella pneumoniae [K. pneumoniae] as the cause of diseases classified elsewhere
CPT/HCPCS: 96372; J0696

== ENCOUNTER 2021-10-12 13:55 | Outpatient (CLI) | payer OTHER, MEDICARE, SELFPAY ==
[2021-10-12 14:20] VITALS: BP 92/56; PULSE 105; RESP 16; O2SAT 96
== END 2021-10-12 14:35 | disposition home or self-care (01) ==
LOC: INF 13:57
PROVIDERS: PCP Internal Medicine; Visit Provider Internal Medicine
DX: N39.0 Urinary tract infection, site not specified (principal); B96.1 Klebsiella pneumoniae [K. pneumoniae] as the cause of diseases classified elsewhere
CPT/HCPCS: 96372; J0696

== ENCOUNTER → 2021-10-13 14:34 | Outpatient (CLI) | payer OTHER, MEDICARE, SELFPAY ==
[2021-10-13 15:20] VITALS: BP 128/72; PULSE 73; RESP 18; O2SAT 99
== END ==
PROVIDERS: PCP Internal Medicine; Visit Provider Internal Medicine
DX: N39.0 Urinary tract infection, site not specified (principal); B96.1 Klebsiella pneumoniae [K. pneumoniae] as the cause of diseases classified elsewhere
CPT/HCPCS: 96372; J0696

== ENCOUNTER 2021-10-14 16:49 | Outpatient (CLI) | payer OTHER, MEDICARE, SELFPAY ==
[2021-10-14 17:21] VITALS: BMI 22.9
== END 2021-10-14 17:25 | disposition home or self-care (01) ==
PROVIDERS: PCP Internal Medicine; Visit Provider Internal Medicine
DX: N39.0 Urinary tract infection, site not specified (principal); B96.1 Klebsiella pneumoniae [K. pneumoniae] as the cause of diseases classified elsewhere
CPT/HCPCS: 96372; J0696

== ENCOUNTER 2021-10-15 16:39 | Outpatient (CLI) | payer OTHER, MEDICARE, SELFPAY | END 2021-10-15 16:59 | disposition home or self-care (01) | LOC: INF 16:45 | PROVIDERS: PCP Internal Medicine; Visit Provider Internal Medicine | DX: N39.0 Urinary tract infection, site not specified (principal); B96.1 Klebsiella pneumoniae [K. pneumoniae] as the cause of diseases classified elsewhere | CPT/HCPCS: 96372; J0696 ==

== ENCOUNTER → 2021-11-07 21:41 | Outpatient (CLI) | payer OTHER, MEDICARE, SELFPAY | PROVIDERS: PCP Internal Medicine; Visit Provider Internal Medicine | DX: N39.0 Urinary tract infection, site not specified (principal); B95.2 Enterococcus as the cause of diseases classified elsewhere | CPT/HCPCS: 87086; 87088; 87186 ==

== ENCOUNTER → 2021-11-11 10:43 | Outpatient (CLI) | payer OTHER, MEDICARE, SELFPAY ==
[2021-11-11 11:08] LABS: Adenovirus F 40/41, stool Not Detected (NotDetected); Astrovirus Not Detected (NotDetected); Campylobacter Not Detected (NotDetected); Cryptosporidium Not Detected (NotDetected); Cyclospora Cayetanesis Not Detected (NotDetected); Entamoeba histolytica Not Detected (NotDetected); Enteroaggregative E coli Not Detected (NotDetected); Enteropathogenic E coli Not Detected (NotDetected); Enterotoxigenic E coli Not Detected (NotDetected); Giardia lamblia Not Detected (NotDetected); Norovirus Not Detected (NotDetected); Plesimonas Shigalloides, PCR Not Detected (NotDetected); Rotavirus A Not Detected (NotDetected); Salmonella, PCR Not Detected (NotDetected); Sapovirus Not Detected (NotDetected); Shiga-like toxin E coli Not Detected (NotDetected); Shigella Enterovasive E coli Not Detected (NotDetected); Vibrio Cholerae Not Detected (NotDetected); Vibrio, PCR Not Detected (NotDetected); Yersinia Entercolitica, PCR Not Detected (NotDetected)
[2021-11-11 16:39] LABS: Clostridium Difficile A/B, PCR Detected (NotDetected)
== END ==
PROVIDERS: PCP Internal Medicine; Visit Provider Internal Medicine
DX: R19.7 Diarrhea, unspecified (principal); A04.72 Enterocolitis due to Clostridium difficile, not specified as recurrent
CPT/HCPCS: 87507

== ENCOUNTER → 2022-01-12 14:32 | Outpatient (CLI) | payer OTHER, MEDICARE, SELFPAY ==
[2022-01-12 14:38] LABS: Adenovirus F 40/41, stool Not Detected (NotDetected); Astrovirus Not Detected (NotDetected); Campylobacter Not Detected (NotDetected); Cryptosporidium Not Detected (NotDetected); Cyclospora Cayetanesis Not Detected (NotDetected); Entamoeba histolytica Not Detected (NotDetected); Enteroaggregative E coli Not Detected (NotDetected); Enteropathogenic E coli Not Detected (NotDetected); Enterotoxigenic E coli Not Detected (NotDetected); Giardia lamblia Not Detected (NotDetected); Norovirus Not Detected (NotDetected); Plesimonas Shigalloides, PCR Not Detected (NotDetected); Rotavirus A Not Detected (NotDetected); Salmonella, PCR Not Detected (NotDetected); Sapovirus Not Detected (NotDetected); Shiga-like toxin E coli Not Detected (NotDetected); Shigella Enterovasive E coli Not Detected (NotDetected); Vibrio Cholerae Not Detected (NotDetected); Vibrio, PCR Not Detected (NotDetected); Yersinia Entercolitica, PCR Not Detected (NotDetected)
[2022-01-12 18:14] LABS: Clostridium Difficile A/B, PCR Detected (NotDetected)
== END ==
PROVIDERS: PCP Internal Medicine; Visit Provider Internal Medicine
DX: R19.7 Diarrhea, unspecified (principal); A04.72 Enterocolitis due to Clostridium difficile, not specified as recurrent
CPT/HCPCS: 87507

== ENCOUNTER → 2022-03-02 15:59 | Outpatient (CLI) | payer OTHER, MEDICARE, SELFPAY | PROVIDERS: PCP Internal Medicine; Visit Provider Internal Medicine | DX: N39.0 Urinary tract infection, site not specified (principal); B96.1 Klebsiella pneumoniae [K. pneumoniae] as the cause of diseases classified elsewhere | CPT/HCPCS: 87086; 87088; 87186 ==

== ENCOUNTER → 2023-02-04 16:38 | Outpatient (CLI) | payer OTHER, MEDICARE, SELFPAY | PROVIDERS: PCP Internal Medicine; Visit Provider Internal Medicine | DX: N39.0 Urinary tract infection, site not specified (principal); B96.1 Klebsiella pneumoniae [K. pneumoniae] as the cause of diseases classified elsewhere | CPT/HCPCS: 87086 ==

== ENCOUNTER 2023-04-08 16:43 | Outpatient (CLI) | payer MEDICARE, SELFPAY | END 2023-04-08 23:59 | PROVIDERS: PCP Internal Medicine; Visit Provider Internal Medicine | DX: B95.2 Enterococcus as the cause of diseases classified elsewhere (principal); H92.01 Otalgia, right ear | CPT/HCPCS: 87070; 87205 ==

== ENCOUNTER 2023-05-08 17:04 | Outpatient (CLI) | payer MEDICARE, SELFPAY | END 2023-05-08 23:59 | disposition home or self-care (01) | LOC: LAB.DROPOF 17:05 | PROVIDERS: PCP Internal Medicine; Visit Provider Internal Medicine | DX: N39.0 Urinary tract infection, site not specified (principal); E11.43 Type 2 diabetes mellitus with diabetic autonomic (poly)neuropathy; N31.9 Neuromuscular dysfunction of bladder, unspecified; G82.21 Paraplegia, complete; B37.9 Candidiasis, unspecified; B96.89 Other specified bacterial agents as the cause of diseases classified elsewhere | CPT/HCPCS: 87086 ==

== ENCOUNTER 2023-08-20 18:00 | Outpatient (CLI) | payer MEDICARE, SELFPAY | END 2023-08-20 23:59 | disposition home or self-care (01) | LOC: LAB.DROPOF 08-21 12:23 | PROVIDERS: PCP Internal Medicine; Visit Provider Internal Medicine | DX: N39.0 Urinary tract infection, site not specified (principal); B96.1 Klebsiella pneumoniae [K. pneumoniae] as the cause of diseases classified elsewhere | CPT/HCPCS: 87086; 87088; 87186 ==

== ENCOUNTER 2023-09-09 17:02 | Outpatient (CLI) | payer MEDICARE, SELFPAY | END 2023-09-09 23:59 | disposition home or self-care (01) | LOC: LAB.DROPOF 17:03 | PROVIDERS: PCP Internal Medicine; Visit Provider Internal Medicine | DX: N39.0 Urinary tract infection, site not specified (principal) | CPT/HCPCS: 87086; 87088 ==

== ENCOUNTER 2023-10-15 12:58 | Emergency (ER) | payer MEDICARE, SELFPAY ==
[2023-10-15 12:59] VITALS: BP 115/69; PULSE 95; RESP 18; TEMP 36.5; O2SAT 98; BMI 25.0
--- OUTSIDE RECORDS SUMMARY | 2023-10-15 13:06 | XMS_ITS | Clinical Summary ---
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, buttock and ishium, stage 4 L89.44 (ICD-10-CM ) 05/19 Inactive 05/19 Minoo Dudley Pressure ulcer of contiguous site of back, buttock and hip, stage 4 Nausea 176285616 (SNOMED CT) 03/05 Inactive 03/05 Minoodanika Buckner Nausea Nausea 192557342 (SNOMED CT) 03/05 Removed 03/05 Sarath Herbert MD Nausea Osteomyeliti s of vertebra, sacral region M46.28 (ICD-10-CM ) Inactive Belen W Osteomyelitis of vertebra, sacral and sacrococcygeal region STENOTROPHOM ONAS B96.89 (ICD-10-CM ) Active Belen W Other specified bacterial agents as the cause of diseases classified elsewhere 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 Belen 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 557907486 (SNOMED CT) Active Belen W Infection caused by Enterococcus MRSA B95.62 (ICD-10-CM ) Active Belen W Methicillin resistant Staphylococcus aureus infection as the cause of diseases classified elsewhere Pelvic sidewall abscess K65.1 (ICD-10-CM ) 10/28 Inactive 10/28 Belen W Peritoneal abscess Chronic osteomyeliti s, left ischial 332176178 (SNOMED CT) Active Belen W Chronic osteomyelitis of femur Anemia in chronic diseases D63.8 (ICD-10-CM ) 10/31 Active 10/31 Belen W Anemia in other chronic diseases classified elsewhere HX MRSA Z86.14 (ICD-10-CM ) Inactive Belen W Personal history of Methicillin resistant Staphylococcus aureus infection Tinea corporis 90185735 (SNOMED CT) 11/07 Active 11/07 Sarath Herbert MD Tinea corporis Obesity, BMI 30-34.9, adult 485812000 (SNOMED CT) 11/01 Inactive 11/01 Belen W Obesity 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 (ICD-10-CM ) 10/31 Inactive 10/31 Belen W Leukemoid reaction HX MRSA Z86.14 (ICD-10-CM ) Removed Belen W Personal history of Methicillin resistant Staphylococcus aureus infection Pressure ulcer of contiguous site of back, buttock and ishium, stage 4 L89.44 (ICD-10-CM ) 05/19 Removed 05/19 Belen W Pressure ulcer of contiguous site of back, buttock and hip, stage 4 Obesity, BMI 30-34.9, adult 666397383 (SNOMED CT) 11/01 Removed 11/01 Aye Joaquin RN Obesity Pressure ulcer of sacral region, stage 4 061099782 (SNOMED CT) 05/19 Inactive 05/19 Belen W Pressure ulcer stage 4 Benign Essential Hypertension 20266046 (SNOMED CT) 10/31 Active 10/31 Minoo Dudley Benign hypertension Anemia in chronic diseases (document disease) D63.8 (ICD-10-CM ) 10/31 Inactive 10/31 Minoo Dudley Anemia in other chronic diseases classified elsewhere 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 (ICD-10-CM ) 10/31 Removed 10/31 Minoo Dudley Leukemoid reaction Osteomyeliti s of vertebra, sacral region M46.28 (ICD-10-CM ) Removed Minoo Dudley Osteomyelitis of vertebra, sacral and sacrococcygeal region Pelvic sidewall abscess K65.1 (ICD-10-CM ) 10/28 Removed 10/28 Minoo Dudley Peritoneal abscess Pressure ulcer of left ischium, stage 3 L89.323 (ICD-10-CM ) 05/19 Inactive 05/19 Minoo Dudley Pressure ulcer of left buttock, stage 3 Chewing tobacco, nicotine dependence F17.220 (ICD-10-CM ) 10/30 Active 10/30 Roshan W Nicotine dependence, chewing tobacco, uncomplicated PELVIC ABSCESS 410265377 (SNOMED CT) 10/28 Inactive 10/28 Belen W Pelvic abscess Cellulitis/W ound Infection-Le ft Buttock region L03.317 (ICD-10-CM ) 12/01 Inactive 12/01 Belen W Cellulitis of buttock Abscess, buttock 49375133 (SNOMED CT) Inactive Belen W Abscess of buttock Chronic osteomyeliti s with draining sinus, left pelvic region 457787695 (SNOMED CT) 08/29 Inactive 08/29 Belen W Chronic osteomyelitis with draining sinus Chronic osteomyeliti s with draining sinus, left pelvic region 854722979 (SNOMED CT) 08/29 Removed 08/29 Minoo Dudley Chronic osteomyelitis with draining sinus Pressure ulcer of left ischium, stage 4 L89.324 (ICD-10-CM ) 05/19 Inactive 05/19 Minoo Dudley Pressure ulcer of left buttock, stage 4 Pressure ulcer of left ischium, stage 3 L89.323 (ICD-10-CM ) 05/19 Removed 05/19 Minoo Dudley Pressure ulcer of left buttock, stage 3 Abscess, buttock 47683707 (SNOMED CT) Removed Minoo Buckner Abscess of buttock Diabetes mellitus type II 40627932 (SNOMED CT) Active Minoo Buckner Type 2 diabetes mellitus Hx of MRSA infection 342306192 (SNOMED CT) Active Minoo Buckner H/O: infectious disease 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 (ICD-10-CM ) Active Minoo Buckner 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 Pseudomonas B96.5 (ICD-10-CM ) Inactive Minoo Buckner Pseudomonas (aeruginosa) (mallei) (pseudomallei) as the cause of diseases classified elsewhere Pressure ulcer of Left Ischium Stage IV L89.44 (ICD-10-CM ) Inactive Minoo Buckner Pressure ulcer of contiguous site of back, buttock and hip, stage 4 Problem excluded fro m report: ENTEROCOCCUS B95.2 (ICD-10-CM ) Inactive sa W Enterococcus as the cause of diseases classified elsewhere Cellulitis/W ound Infection-Le ft Buttock region L03.317 (ICD-10-CM ) 12/01 Removed 12/01 Belen W Cellulitis of buttock Chronic Osteomyeliti s-Left Pelvic Region M86.652 (ICD-10-CM ) Inactive Belen W Other chronic osteomyelitis, left thigh Pseudomonas B96.5 (ICD-10-CM ) Removed Belen W Pseudomonas (aeruginosa) (mallei) (pseudomallei) as the cause of diseases classified elsewhere MRSA 194488613 (SNOMED CT) Inactive Belen W Methicillin resistant Staphylococcus aureus infection ENTEROCOCCUS B95.2 (ICD-10-CM ) Removed Belen W Enterococcus as the cause of diseases classified elsewhere Pressure ulcer of Left Ischium Stage IV L89.44 (ICD-10-CM ) Removed Belen W Pressure ulcer of contiguous site of back, buttock and hip, stage 4 Paraplegia 41914136 (SNOMED CT) Active Belen Cano Paraplegia Diabetes mellitus type II, not stated as uncontrolled E11.9 (ICD-10-CM ) Inactive Belen Cano Type 2 diabetes mellitus without complications Cellulitis and abscess of buttock 562650353 (SNOMED CT) 12/01 Inactive 12/01 Ashley Joseph RN Cellulitis and abscess of buttock Medications Medication Instructions Start Date Stop Date Generic Name ND Provider BACTRIM DS 800-160 MG TABS 1 by mouth twice a day SULFAMETHOXAZOLE -TRIMETHOPRIM [id number] Sarath Herbert MD BACTRIM DS 800-160 MG TABS 1 by mouth twice a day SULFAMETHOXAZOLE -TRIMETHOPRIM 19495616769 Sarath Herbert MD BACTRIM DS 800-160 MG TABS 1 by mouth twice a day SULFAMETHOXAZOLE -TRIMETHOPRIM 31204029512 Sarath Herbert MD CEFTAZIDIME SOLR 2gm IV Q8hrs OPAT CEFTAZIDIME SOLR 65128093357 Carolee Araujo RN ZOFRAN 4 MG ORAL TABLET 1 by mouth 3 times a day 7 days for nausea ONDANSETRON HCL 75236006043 Sarath Herbert MD PRAVACHOL 40 MG ORAL TABLET by mouth daily PRAVASTATIN SODIUM 90168992615 Annakain Kilgore GLIPIZIDE XL TABLET EXTENDED RELEASE 24 HOUR 2 tabs daily GLIPIZIDE [id number] 48304880546 Jesús P LORTAB 5-325 MG ORAL TABLET by mouth three times a day as needed HYDROCODONE-ACET AMINOPHEN 15095013165 Jesús P ASCORBIC ACID 500 MG TABS by mouth daily ASCORBIC ACID 65486557877 Jesús P BACLOFEN TABS 2 tabs four times a day BACLOFEN TABS 03427141614 Jesús P DANTROLENE SODIUM 100 MG CAPS by mouth three times a day DANTROLENE SODIUM 24753230107 Jesús P PEPCID 20 MG TABS by mouth twice daily FAMOTIDINE 34518852730 Jesús P NEURONTIN 600 MG TABS by mouth four times a day GABAPENTIN 95005361206 Jesús P ACIDOPHILUS 100 MG CAPS 2 tabs daily for 14 days LACTOBACILLUS 62221456798 Jesús P KEPPRA 500 MG TABS by mouth four times a day LEVETIRACETAM 28661822355 Jesús P LORAZEPAM 0.5 MG TABS q.h.s. p.r.n. LORAZEPAM 70847181431 Jesús P PRAVACHOL 40 MG ORAL TABLET by mouth daily PRAVASTATIN SODIUM 95181651288 Jesús P VITAMIN E-400 400 UNIT ORAL CAPSULE by mouth daily VITAMIN E 80255022348 Jesús P ORAZINC 220 (50 Zn) MG CAPS by mouth daily ZINC SULFATE 54382881360 Jesús P DANTROLENE SODIUM 100 MG CAPS take by mouth 3 times a day DANTROLENE SODIUM 58711452905 Jesús P GABAPENTIN 600 MG TABS take by mouth four times a day GABAPENTIN 38744497060 Jesús P GLIPIZIDE ER 5 MG [id number] take by mouth daily GLIPIZIDE 54270534079 Jesús P LEVETIRACETAM 500 MG TABS take by mouth 4 times a day LEVETIRACETAM 54266436994 Jesús P METFORMIN HCL 500 MG TABS take 1000mg by mouth a day with meals METFORMIN HCL 06044518463 Jesús P METRONIDAZOLE 500 MG TABS take 1 tab by mouth every 8 hours for 28 days METRONIDAZOLE 43045538991 Jesús P MIRALAX 17 GM PACK take 17g by mouth two times a day POLYETHYLENE GLYCOL 3350 43347582300 Jesús P FLORASTOR 250 MG CAPS take 250mg by mouth two times a day SACCHAROMYCES BOULARDII 13283813961 Jesús P CUBICIN 500 MG INTRAVENOUS SOLUTION RECONSTITUTED CUBICIN 500MG IV Q 24 HRS/OPAT DAPTOMYCIN 73554041743 Jesús P FLUCONAZOLE 200 MG TABS 1 by mouth daily 7 days FLUCONAZOLE 81693416418 Jesús P CEFTAZIDIME SOLR 2gm IV Q8hrs OPAT CEFTAZIDIME SOLR 20254862109 Lexi Humphries RN MERREM 1 GM INTRAVENOUS SOLUTION RECONSTITUTED MERREM 1 GM IV Q 12 HRS/OPAT MEROPENEM 99831929741 Lexi Humphries RN FLUCONAZOLE 200 MG TABS 1 by mouth daily 7 days FLUCONAZOLE 83113769422 Sarath Herbert MD JANUVIA 100 MG TABS take 100 mg by mouth daily SITAGLIPTIN PHOSPHATE 84960249606 Roshan Cano FLORASTOR 250 MG CAPS take 250mg by mouth two times a day SACCHAROMYCES BOULARDII 30441570697 Roshan Cano MIRALAX 17 GM PACK take 17g by mouth two times a day POLYETHYLENE GLYCOL 3350 38786792068 Roshan Cano OXYBUTYNIN CHLORIDE 5 MG TABS take by mouth three times a day OXYBUTYNIN CHLORIDE 49891860914 Roshan Cano METRONIDAZOLE 500 MG TABS take 1 tab by mouth every 8 hours for 28 days METRONIDAZOLE 21021340468 Roshan Cano METFORMIN HCL 500 MG TABS take 1000mg by mouth a day with meals METFORMIN HCL 54542970623 Roshan Cano LEVETIRACETAM 500 MG TABS take by mouth 4 times a day LEVETIRACETAM 87743895446 Roshan Cano GLIPIZIDE ER 5 MG [id number] take by mouth daily GLIPIZIDE 95235566456 Roshan Cano GABAPENTIN 600 MG TABS take by mouth four times a day GABAPENTIN 15064895956 Roshan Rachael DANTROLENE SODIUM 100 MG CAPS take by mouth 3 times a day DANTROLENE SODIUM 22691344342 Roshan Rachael GLIPIZIDE ER 5 MG [id number] take 1 daily GLIPIZIDE 92936253278 Roshan Cano METFORMIN HCL 1000 MG TABS take 1 tablet twice daily METFORMIN HCL 37250989761 Roshan Cano JANUVIA 100 MG TABS take 1 tablet daily SITAGLIPTIN PHOSPHATE 81565867700 Roshan Cano BACLOFEN 20 MG TABS take 2 tablets 4 times daily BACLOFEN 46739421163 Roshan Rachael DANTROLENE SODIUM 100 MG CAPS take 1 capsule 3 times daily DANTROLENE SODIUM 47862086992 Roshan Cano NEURONTIN 600 MG TABS take 1 tablet 4 times daily GABAPENTIN 37323096586 Roshan Rachael KEPPRA 500 MG TABS take 1 tablet 4 times daily LEVETIRACETAM 73090344574 Roshan Cano OXYBUTYNIN CHLORIDE 5 MG TABS take 1 tablet 3 times daily as needed OXYBUTYNIN CHLORIDE 17553007457 Roshan Cano PRAVACHOL 40 MG ORAL TABLET take 1 tablet daily PRAVASTATIN SODIUM 13525793928 Roshan Cano FLORASTOR 250 MG CAPS take 1 capsule daily SACCHAROMYCES BOULARDII 14994211474 Roshan Cano CUBICIN 500 MG INTRAVENOUS SOLUTION RECONSTITUTED CUBICIN 500MG IV Q 24 HRS/OPAT DAPTOMYCIN 24826567121 Carolee Araujo RN MERREM 1 GM INTRAVENOUS SOLUTION RECONSTITUTED MERREM 1 GM IV Q 12 HRS/OPAT MEROPENEM 75056437268 Carolee Araujo RN PRAVACHOL 40 MG ORAL TABLET take 1 tablet daily PRAVASTATIN SODIUM 84963815366 Janell S LEVAQUIN TABS by mouth daily, dose unknown LEVOFLOXACIN TABS 72482256660 Janell S LEVAQUIN 500 MG ORAL TABLET 1 by mouth daily 7 days LEVOFLOXACIN 82046106454 Janell S LEVAQUIN 500 MG ORAL TABLET 1 by mouth daily 7 days LEVOFLOXACIN 92771557995 Sarath Herbert MD PEPCID 20 MG TABS take 1 daily FAMOTIDINE 23501773628 Yolande D FLAGYL 500 MG ORAL TABLET take 1 daily METRONIDAZOLE 84965273566 Yolande D NYSTATIN 507793 UNIT TABS take 1 tablet 4 times daily NYSTATIN 94906413761 Yolande D DOXYCYCLINE HYCLATE 100 MG CAPS Take one by mouth twice daily. DOXYCYCLINE HYCLATE 40866249771 Yolande D LEVAQUIN TABS by mouth daily, dose unknown LEVOFLOXACIN TABS 86477374270 Yolande D DOXYCYCLINE HYCLATE 100 MG CAPS Take one by mouth twice daily. DOXYCYCLINE HYCLATE 10814197074 Savita L VANCOMYCIN HCL SOLR 1 gm IV Q12hrs/ OPAT VANCOMYCIN HCL SOLR 35210143031 Maciej Jara FORTAZ 2 GM INTRAVENOUS SOLUTION RECONSTITUTED 2gm IV Q8hrs/ OPAT CEFTAZIDIME 51463270350 Maciej Jara FLORASTOR 250 MG CAPS take 1 capsule daily SACCHAROMYCES BOULARDII 67616127393 Connie A PRAVACHOL 40 MG ORAL TABLET take 1 tablet daily PRAVASTATIN SODIUM 27465817356 Connie A OXYBUTYNIN CHLORIDE 5 MG TABS take 1 tablet 3 times daily as needed OXYBUTYNIN CHLORIDE 68178896710 Connie A NYSTATIN 873095 UNIT TABS take 1 tablet 4 times daily NYSTATIN 88750778038 Connie A FLAGYL 500 MG ORAL TABLET take 1 daily METRONIDAZOLE 54151277263 Connie A KEPPRA 500 MG TABS take 1 tablet 4 times daily LEVETIRACETAM 99556896050 Connie A NEURONTIN 600 MG TABS take 1 tablet 4 times daily GABAPENTIN 13257560192 Connie A PEPCID 20 MG TABS take 1 daily FAMOTIDINE 35379296772 Connie A DANTROLENE SODIUM 100 MG CAPS take 1 capsule 3 times daily DANTROLENE SODIUM 23558976640 Connie A BACLOFEN 20 MG TABS take 2 tablets 4 times daily BACLOFEN 85718067143 Connie A JANUVIA 100 MG TABS take 1 tablet daily SITAGLIPTIN PHOSPHATE 06102053005 Connie A METFORMIN HCL 1000 MG TABS take 1 tablet twice daily METFORMIN HCL 02894490211 Connie A GLIPIZIDE ER 5 MG [id number] take 1 daily GLIPIZIDE 35428468060 Connie A VANCOMYCIN HCL SOLR 1 gm IV Q12hrs/ OPAT VANCOMYCIN HCL SOLR 32465093857 Gunjan Renner RN FORTAZ 2 GM INTRAVENOUS SOLUTION RECONSTITUTED 2gm IV Q8hrs/ OPAT CEFTAZIDIME 21084951903 Gunjan Rnener RN VANCOMYCIN HCL SOLR 1.25gm IV Q12hrs/ OPAT VANCOMYCIN HCL SOLR 64266402319 Gunjan Renner RN Medications Administered No information available. Allergies, Adverse Reactions, Alerts Allergy Name Reaction Description Start Date Severity Statu s Provider TETANUS TOXOID arm swelling Moderate Active T yler P TETANUS TOXOID Moderate No Longer Acti ve Jace S Results Date Name Value Unit Range Flag Description Chart Maintenance: lab updat e VANCOMY CHAL 13.8 ug/mL vancomyc in level, serum, trough BASOPHIL % 0.9 % Basophils/ 100 leukocytes in Blood by Manual count LYMPHS % 34 % Lymphocytes/ 100 leukocytes in Blood by Automated count Lab Report: CBC without Diff erential RDW_ 14.0 11.3-14.5 N RDW, no uni ts Clinical Lists Update: Prelo ad HGBA1C 6.90 % Hemoglobin A1c/Hemoglobin, total in Blood - % Lab Report: CK CPK 32 U/L 26-174 Creatine ezekiel se [Enzymatic activity/volume] in Serum or Plasma Lab Report: SEDIMENTATION RA TE ESR 20 mm/h 0-20 Erythrocyte sedimentation rate by Westergren method Lab Report: CBC WITH AUTO DI FFERENTIAL IMMATUREGRAN 0.02 10*3/MM3 0.00-0.03 Immature granulocytes [#/volume] in Blood BASO# 0.01 10*3/mm3 0.00-0.20 Basophils [#/vol ume] in Blood EOS ABSLT 0.12 10*3/uL 0.10-0.30 Eosinophi ls [#/volume] in Blood MONOSCT AUTO 0.45 10*3/uL 0.00-1.00 Monocy marlene [#/volume] in Blood by Automated count LYMPHCT AUTO 1.89 10*3/mm3 0.60-4.80 Lymph ocytes [#/volume] in Blood by Automated count ABS NEUTROPH 5.39 10*3/uL 1.50-8.30 Neutro phils [#/volume] in Blood IMM GRANU % 0.3 % 0.0-0.6 Immature granulocytes/100 leukocytes in Blood [id number] 0.1 % 0.0-1.0 GE use only - for [employer] import when terms are not otherwise specified % EOS AUTO 1.5 % 0.0-3.0 Eosinophil s/100 leukocytes in Blood by Automated count MONOCYTE % 5.7 % 0.0-12.0 Monocytes /100 leukocytes in Blood by Automated count LYMPHOCY BF 24.0 % 24.0-44.0 lymphoc ytes as percent of body fluid leukocytes PMN % 68.4 % 41.0-71.0 Neutrophils /100 leukocytes in Blood by Automated count PLATELETS 243 10*3/mm3 150-450 Platelets [#/volume] in Blood by Automated count RDW 15.0 % 11.3-14.5 H Erythrocyte distribution width [Ratio] by Automated count MCHC 31.9 G/DL 32.0-36.0 L MCHC [Mass/ volume] by Automated count MCH 26.7 pg 27.0-31.0 L MCH [Entiti c mass] by Automated count MCV 83.7 fL 80.0-99.0 MCV [Entiti c volume] by Automated count HCT 42.7 % 38.9-50.9 Hematocrit [Volume Fraction] of Blood by Automated count HGB 13.6 g/dL 13.1-17.5 Hemoglobin [Mass/volume] in Blood RBC 5.10 10*6/mm3 4.20-5.76 Erythrocyt es [#/volume] in Blood by Automated count WBC 7.88 10*3/mm3 3.50-10.8 0 Leukocytes [#/volume] in Blood by Automated count Lab Report: COMPREHENSIVE ME TABOLIC PANEL BILI TOTAL 0.3 mg/dL 0.3-1.2 Bilirubin. total [Mass/volume] in Serum or Plasma ALK PHOS 79 U/L 25-100 Alkaline rae sphatase [Enzymatic activity/volume] in Blood SGOT (AST) 20 U/L 0-33 Aspartate aminotransferase [Enzymatic activity/volume] in Serum or Plasma SGPT (ALT) 14 U/L 7-40 Alanine aminotransferase [Enzymatic activity/volume] in Serum or Plasma ALBUMIN 4.40 g/dL 3.20-4.80 Albumin [Mass/volume] in Serum or Plasma PROTEIN, TOT 7.3 g/dL 5.7-8.2 Protein [Mass/volume] in Serum or Plasma Lab Report: C-REACTIVE PROTE IN CRPCARDRISK 12.90 MG/DL 0.00-10.0 0 H C reactive protein [Mass/volume] in Serum or Plasma Office Visit: 3 MEDS REVIEW Done Documenta tion of current medications (procedure) DIET ENAMEL BURNER yes Dietary management education, guidance, and counseling (procedure) ORALTOBACUSE Current Tobacco smoking status SMOK STATUS 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 Lab Report: BASIC METABOLIC PANEL ANIONGAP 7.0 mmol/L 3.0-11.0 anion gap, serum BUN/CREAT 16.7 7.0-25.0 Urea nitrogen/Creatinine [Mass Ratio] in Serum or Plasma GFRC 89 mL/min/1 .73m2 >60 Glomerular Filtration Rate Calculation CALCIUM 10.4 mg/dL 8.7-10.4 Calcium [Moles/volume] in Serum or Plasma CO2 32.0 mmol/L 20.0-31.0 H Carbon diox amado, total [Moles/volume] in Venous blood CHLORIDE 103 mmol/L 99-109 Chloride [Moles/volume] in Serum or Plasma POTASSIUM 5.0 mmol/L 3.5-5.5 Potassium [Moles/volume] in Serum or Plasma SODIUM 142 mmol/L 132-146 Sodium [Moles/volume] in Serum or Plasma CREATININE 0.90 mg/dL 0.60-1.30 Creatini ne [Mass/volume] in Serum or Plasma BUN 15 mg/dL 9-23 Urea nitrogen [Mass/volume] in Serum or Plasma GLUCOSE SER 119 mg/dL 70-100 H Glucose [Mass/volume] in Serum or Plasma Plan of Care Type Date Detail Pending order Continue oral an tibiotics Pending order BMP Pending order BMP Pending order Continue oral an tibiotics Pending order CMP Pending order CBC with Differe ntial Pending order C- reactive prot ein Pending order BMP Pending order Continue oral an tibiotics Pending order CBC with Differe ntial Pending order C- reactive prot ein Pending order CMP Pending order Stat Weekly Labs Pending order PICC Removal Pending order Discontinue IV a ntibiotics Pending order Stat Weekly Labs Pending order Continue IV anti biotics Pending order Continue oral an tibiotics Pending order Continue IV anti biotics Pending order Continue oral an tibiotics Pending order New Oral Antibio tic Pending order Stat Weekly Labs Pending order STAT Labs Pending order Continue IV anti biotics Pending order Continue oral an tibiotics Pending order Stat Weekly Labs Pending order New IV antibioti c Pending order Daptomycin Pending order Meropenem Pending order CBC with Differe ntial Pending order C- reactive prot ein Pending order CBC with Differe ntial Pending order C- reactive prot ein Pending order CMP Pending order Hepatitis C Atb: (ICD 10 Code: Z11.59) Pending order CMP Pending order CBC with Differe ntial Pending order C- reactive prot ein Pending order CPK Pending order Sedimentation Ra te (ESR) Pending order Continue oral an tibiotics Pending order CMP Pending order CBC w/o Differen tial Pending order C- reactive prot ein Pending order Sedimentation Ra te (ESR) Pending order PICC Removal Pending order Discontinue IV a ntibiotics Pending order Discontinue oral antibiotics Pending order Stat Weekly Labs Pending order Change IV antibi otics Pending order Vancomycin Pending order Ceftazidime Pending order Vancomycin Pending order Weekly Labs (Con tinue) Patient education Medications Patient education Medications Patient education Medications Patient education Medications Patient education Medications Patient education WEIGHT%20MANAG EMENT Patient education Medications Patient education Ceftazidime%20 (Injection)%20(Injectable) Patient education Vancomycin%20( Injection)%20(Injectable) Patient education Ceftazidime%20 (Injection)%20(Injectable) Patient education Vancomycin%20( Injection)%20(Injectable) Procedures Code Procedure Name Date Entry Date CPT-Cooral Continue oral antibiotics 20 16/02/22 CPT-Cooral Continue oral antibiotics 20 16/02/05 CPT-11348 CMP [id number] CBC with Differential 2015 CPT-53870 C- reactive protein CPT-17077 BMP CPT-Cooral Continue oral antibiotics 20 17/01/21 [id number] CBC with Differential 2015 CPT-53128 C- reactive protein CPT-40248 CMP CPT- stat weekly Stat Weekly Labs CPT-PICREM PICC Removal CPT-DC Discontinue IV antibiotics 2 CPT- stat weekly Stat Weekly Labs CPT-ca Continue IV antibiotics 2015 CPT-Cooral Continue oral antibiotics 20 18/11/11 CPT-ca Continue IV antibiotics 2015 CPT-Cooral Continue oral antibiotics 20 17/11/05 CPT-pj New Oral Antibiotic CPT- stat weekly Stat Weekly Labs CPT-sl STAT Labs CPT-ca Continue IV antibiotics 2015 CPT-Cooral Continue oral antibiotics 20 17/10/30 CPT- stat weekly Stat Weekly Labs CPT-tera New IV antibiotic CPT-J0878 Daptomycin CPT-J2185 Meropenem CPT-58600 CMP 83960 Hepatitis C Atb: (ICD 10 Code: Z11.59) 20 17/10/08 CPT-80593 CMP [id number] CBC with Differential 2015 CPT-58632 C- reactive protein [id number], [id number] CPK CPT-27410 Sedimentation Rate (ESR) 201 08/07/26 CPT-Cooral Continue oral antibiotics 20 17/08/26 CPT-75652 CMP CPT-80696 CBC w/o Differential CPT-09424 C- reactive protein CPT-56885 Sedimentation Rate (ESR) 201 08/03/25 CPT-PICREM PICC Removal CPT-DC Discontinue IV antibiotics 2 CPT-oral Discontinue oral antibiotics CPT- stat weekly Stat Weekly Labs CPT-ne Change IV antibiotics CPT-J3370 Vancomycin CPT-J0713 Ceftazidime CPT-J3370 Vancomycin CPT-cwl Weekly Labs (Continue) 12/01 Vital Signs Date Name Value Unit Description BMI (Body Mass Index) 26.25 kg/m2 Bod y Mass Index (Ratio) Body Temperature 97.2 [degF] temperat ure E&M BP Diastolic 78 mm[Hg] blood pressu re, diastolic BP Systolic 116 mm[Hg] blood pressur e, systolic Heart Rate 90 /min pulse rate Respiratory Rate 16 /min respirat ory rate E&M Weight Measured 199 [lb_av] weight E& M Height 73 [in_us] height E&M Immunizations Vaccine Administration Date Standard Description CVX Co de Dose Afluria Intramuscular Suspension Afluria Intramuscular Suspension 141 Unknown Afluria Intramuscular Suspension Afluria Intramuscular Suspension 141 Unknown Pneumovax 23 Injection Injectable 25 MCG/0.5ML Pneumovax 23 Injection Injectable 25 MCG/0.5ML 33 Unknown Advance Directives Directive Description Start Date NO ADVANCE DIRECTIVES
[2023-10-15 13:25] LABS: Microscopic, Urine URINE MICROSCOPIC (MICROSCOPIC)
[2023-10-15 13:38] LABS: Appearance,Urine TURBID (Clear); Bilirubin,Urine Negative (Negative); Blood, Urine 3+ (Negative); Color,Urine YELLOW (Yellow); Glucose,Urine (UA) 2+ (Negative); Ketones,Urine TRACE (Negative); Leukocyte Esterase,Urine 2+ (Negative); Nitrate,Urine Negative (Negative); Protein,Urine 2+ (Negative); Specific Gravity, Urine >= 1.030 (1.005-1.030); Urobilinogen,Urine 0.2 EU/dl (0.2)
[2023-10-15 13:39] LABS: Bacteria,Urine 2+ /lpf; Squamous Epithelial Cell,Urine Occasional #/hpf (0-5); WBC,Urine TNTC #/hpf (0-3); Yeast,Urine 1+ /lpf
[2023-10-15 14:15] VITALS: BP 118/84; PULSE 90; O2SAT 98
--- NOTE | 2023-10-15 14:15 | PC.NURSE ---
JUJU CAR AT BEDSIDE
--- NOTE | 2023-10-15 14:20 | CT_ITS ---
FINAL REPORT CLINICAL HISTORY: Malaise, gross hematuria COMPARISON: None FINDINGS: CT OF THE ABDOMEN AND PELVIS WITH CONTRAST Axial CT images of the abdomen and pelvis were obtained after the administration of IV contrast. Coronal and sagittal reformatted images were also obtained and reviewed. This study was performed with techniques to keep radiation doses as low as reasonably achievable (ALARA). Individualized dose reduction techniques using automated exposure control or adjustment of mA and/or kV according to the patient's size were employed. Abdomen: Mild scarring is present in the lung bases bilaterally. Postoperative changes are noted in the lower thoracic spine.. The heart is normal in size. The liver has an unremarkable appearance, without evidence of mass or biliary ductal dilatation. The gallbladder has been surgically resected. The spleen is unremarkable. No adrenal mass is present. The pancreas has an unremarkable appearance. The kidneys are normal, without evidence of mass or hydronephrosis. The aorta is normal in caliber. There is no free fluid or adenopathy. No mass or abnormal fluid collection is seen. Pelvis: The appendix is normal in appearance. A left lower quadrant colostomy is present. The urinary bladder is remarkable for marked wall thickening, measuring 20 mm in thickness, which is adjacent stranding, likely representing cystitis but neoplasm not excluded. No inflammatory process is seen. There is no evidence of mass or adenopathy. There is no evidence of bowel obstruction. There is chronic erosion of the left ischial tuberosity. There is skin thickening in the left gluteal region, likely inflammatory in etiology. IMPRESSION: Marked wall thickening of the bladder, measuring up to 20 mm in thickness, with adjacent stranding. As described, this likely represents cystitis but neoplasm is not excluded. Chronic erosion of the left ischial tuberosity with skin thickening in the left gluteal region, likely inflammatory. Left lower quadrant colostomy. Reviewed, Interpreted and Dictated by Jace Smith III, MD Transcribed by Natalie Holliday Authenticated and [facility]
--- NOTE | 2023-10-15 14:25 | ED_ITS ---
<Statement entered by Brandi Adame MD - 10/15/23 22:31> I was consulted by the ROSS, and we discussed the complexity of the problems being addressed. I approved the treatment and management plan for this patient's care in the emergency department, thus performing a substantive portion of the medical decision making. Brandi Adame MD, SHER, FACEP Discharge Plan Disposition Patient Disposition: Home, Self-Care Condition: Good Prescriptions Prescriptions: New sulfamethoxazole-trimethoprim [Bactrim DS] 800-160 mg tablet 1 tab PO BID 21 Days Qty: 42 0RF No Action oxybutynin chloride 5 mg tablet 5 mg PO TID Qty: 270 1RF nitrofurantoin macrocrystal [Macrodantin] 100 mg capsule 100 mg PO HS 30 Days Qty: 30 0RF Rx Instructions: must administer with a meal/food levofloxacin 750 mg tablet 750 mg PO DAILY Qty: 7 0RF escitalopram oxalate [Lexapro] 10 mg tablet 10 mg PO DAILY Qty: 90 1RF metformin 1,000 mg tablet 1,000 mg PO BIDWMEAL Qty: 180 1RF glipizide 10 mg tablet extended release 24hr 10 mg PO DAILY Qty: 90 1RF baclofen 20 mg tablet 40 mg PO QIDP PRN (Reason: Muscle Spasm) Qty: 720 1RF levetiracetam 500 mg tablet 500 mg PO QID Qty: 360 1RF pravastatin 40 mg tablet See Rx Instructions .ROUTE .COMPLEX Qty: 90 3RF Dose Instruction: TAKE 1 TABLET ONE TIME DAILY Rx Instructions: TAKE 1 TABLET ONE TIME DAILY carvedilol 3.125 mg tablet See Rx Instructions .ROUTE .COMPLEX Qty: 180 3RF Dose Instruction: TAKE 1 TABLET TWICE DAILY FOR HEART RATE Rx Instructions: TAKE 1 TABLET TWICE DAILY FOR HEART RATE gabapentin 600 tablet 600 mg PO QIDP PRN (Reason: Muscle Spasm) cholecalciferol (vitamin D3) 125 MCG capsule 125 mcg PO WEEKLY semaglutide 7 MG tablet 7 mg PO DAILY Referrals Follow up/Referrals: Duc Shi MD [Primary Care Provider] - See instructions Activity Restrictions/Add. Instructions Additional Instructions/Restrictions: You need to follow-up with urology for cystoscopy and possible tissue sampling giving your chronic urinary tract infection. Please call and make an appointment in the a.m. I have put you on a longer course of antibiotics until urine culture comes back. Please continue to check your portal. Return to ER for any worsening signs or symptoms as needed. Clinical Impressions Clinical Impression: Urinary tract infectious disease Instructions Patient Instructions: DI for Urinary Tract Infection (UTI) Print Language Print Language: Pashto Discharge ED Provider: Brandi Adame General Adult HPI General Chief complaint: Urogenital-Male Stated complaint: blood in urine Time Seen by Provider: 10/15/23 14:09 Mode of Arrival: Wheelchair Source of Information: Patient Limitations: No Limitations Description of Symptoms (Recalled from ER Triage Doc. by RN): PT REPORTS ONGOING UTI X 2 MONTHS. HAS SEEN PCP AND UROLOGIST. ABX X 2. REPORTS BLOOD IN URINE AT NIGHT, CLOUDY THIS AM. SELF-CATHS. REPORTS OCCASIONAL HEADACHE, NAUSEA AND ABDOMINAL PAIN. POSSIBLE FEVER AND CHILLS. AT HOME COVID TEST, NEGATIVE. History of Present Illness HPI narrative: Patient presents for evaluation of hematuria and malaise. Patient is paraplegic and has to self cath. He gives a history of chronic UTI and is seen both his PCP and urology for this problem. However he is felt acutely unwell although he has minimal sensation he knows that he sometimes gets infections and he feels similar to previous infections but more significantly he started noticing visible blood which is new. He denies any subjective fever chills hemoptysis hematochezia melena. Related Data Home Medications ?Medication ?Instructions ?Recorded ?Confirmed gabapentin 600 mg tablet 600 mg PO QIDP PRN Muscle Spasm 07/16/17 10/07/23 cholecalciferol (vitamin D3) 125 125 mcg PO WEEKLY Supplement 11/23/19 10/07/23 mcg (5,000 unit) capsule semaglutide 7 mg tablet 7 mg PO DAILY Diabetes 05/04/21 10/07/23 Previous Rx's ?Medication ?Instructions ?Recorded levofloxacin 750 mg tablet 750 mg PO DAILY #7 tabs 08/20/23 baclofen 20 mg tablet 40 mg (2 x 20 mg) PO QIDP PRN 08/29/23 Muscle Spasm #720 tabs escitalopram oxalate 10 mg tablet 10 mg PO DAILY mood #90 tabs 08/29/23 (Lexapro) glipizide 10 mg tablet, extended 10 mg PO DAILY Diabetes #90 tabs 08/29/23 release 24 hr levetiracetam 500 mg tablet 500 mg PO QID spasms #360 tabs 08/29/23 metformin 1,000 mg tablet 1,000 mg PO BIDWMEAL #180 tabs 08/29/23 carvedilol 3.125 mg tablet See Rx Instructions .Route 09/27/23 .COMPLEX #180 tabs pravastatin 40 mg tablet See Rx Instructions .Route 09/27/23 .COMPLEX #90 tabs nitrofurantoin macrocrystal 100 mg 100 mg PO HS 30 days #30 caps 10/07/23 capsule (Macrodantin) oxybutynin chloride 5 mg tablet 5 mg PO TID #270 tabs 10/07/23 sulfamethoxazole 800 1 tab PO BID 21 days #42 tabs 10/15/23 mg-trimethoprim 160 mg tablet (Bactrim DS) Allergies Allergy/AdvReac Type Severity Reaction Status Date / Time Tetanus Vaccines and Toxoid Allergy Mild Verified 10/07/23 14:34 [Tetanus Vaccines & Toxoid] [facility] Disclaimer: The information contained in this section may have been updated after the patient was seen, as this information can be updated by other users. 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 current occupational exposures/hazards: No caffeine: Yes ROS Obtained: Yes Systems reviewed as appropriate & no additional complaints except as documented Physical Exam General General appearance: alert and in no apparent distress Respiratory Respiratory exam: Present normal lung sounds bilaterally Cardiovascular Cardiovascular exam: Present regular rate and normal rhythm Abdominal Exam Abdominal exam: Present soft and normal bowel sounds; Absent tenderness, guarding or rebound Neurological Exam Neurological exam: Present alert and oriented X3 Medical Decision Making Medical Records Medical records reviewed: Yes I reviewed the patient's medical records. Gui Inquiry Pt receiving controlled substance: No Vital Signs: 10/15/23 12:59 10/15/23 14:15 10/15/23 15:21 Temperature 97.7 F Temperature Source Oral Pulse Rate 90 91 H Pulse Rate [Radial] 95 H Respiratory Rate 18 Blood Pressure 118/84 118/79 Blood Pressure [Left Arm] 115/69 Blood Pressure Mean [Left Arm] 84 Blood Pressure Source [Left Arm] Automatic Cuff Blood Pressure Position [Left Arm] Sitting 02 Sat by Pulse Oximetry 98 98 99 Oxygen Delivery Method Room Air 10/15/23 16:00 10/15/23 17:50 10/15/23 18:20 Temperature 97.7 F Temperature Source Pulse Rate 91 H 89 94 H Pulse Rate [Radial] Respiratory Rate 20 Blood Pressure 110/81 119/72 121/87 Blood Pressure [Left Arm] Blood Pressure Mean [Left Arm] Blood Pressure Source [Left Arm] Blood Pressure Position [Left Arm] 02 Sat by Pulse Oximetry 98 96 Oxygen Delivery Method Room Air Lab Data Lab results reviewed: Yes I reviewed the patient's lab results. Lab Results 10/15/23 13:19: Urine Color Yellow, Urine Appearance Turbid, Urine pH 6.0, Ur Specific Mobile >= 1.030, Urine Protein 2+, Urine Glucose (UA) 2+, Urine Ketones Trace, Urine Blood 3+, Urine Nitrate Negative, Urine Bilirubin Negative, Urine Urobilinogen 0.2, Ur Leukocyte Esterase 2+ A, Urine RBC 10-20, Urine WBC Tntc, Ur Squamous Epith Cells Occasional, Urine Bacteria 2+, Urine Yeast 1+ 10/15/23 14:17: WBC 4.7 L, RBC 4.14 L, Hgb 14.0 L, Hct 38.6 L, MCV 93.2, MCH 33.9 H, MCHC 36.4 H, RDW 13.9, Plt Count 264, MPV 7.6, Neut % (Auto) 62.3, Lymph % (Auto) 29.8, Lewis % (Auto) 4.9, Eos % (Auto) 2.4, Baso % (Auto) 0.7, Neut # (Auto) 3.0, Lymph # (Auto) 1.4, Lewis # (Auto) 0.2, Eos # (Auto) 0.1, Baso # (Auto) 0.0, Sodium 141, Potassium 3.9, Chloride 104, Carbon Dioxide 29, Anion Gap 11.9, BUN 13, Creatinine 0.90, Estimated Creat Clear 106, Estimated GFR 86, Est GFR ( Amer) 104, Glucose 150 H, Calcium 9.5, Total Bilirubin 0.6, AST 37, ALT 32, Alkaline Phosphatase 71, Total Protein 7.5, Albumin 4.0, Globulin 3.5 H, Albumin/Globulin Ratio 1.1, Procalcitonin 0.079 10/15/23 14:17 10/15/23 14:17 Orders (Tests/Meds): ED MEDICATIONS Discontinued Medications Generic Name Dose Route Start Last Admin Trade Name Freya PRN Reason Stop Dose Admin Acetaminophen 1,000 mg 10/15/23 14:20 10/15/23 16:38 Acetaminophen 1,000mg/100ml Vial IV 10/15/23 14:21 1,000 mg ONCE ONE Administration Sodium Chloride 1,000 mls @ 999 mls/hr 10/15/23 14:20 10/15/23 16:38 Sod Chlor 0.9% 1000ml Bag IV 10/15/23 15:20 999 mls/hr .Q1H1M ONE Administration Iopamidol 75 ml 10/15/23 15:28 10/15/23 15:28 Iopamidol-370 (76%);100ml Bottle IV 10/15/23 15:29 75 ml ONCE ONE Administration Sodium Chloride 10 ml 10/15/23 15:28 10/15/23 15:28 Sodium Chloride 0.9% 10ml Syr (Rad Only) IV 10/15/23 15:29 10 ml ONCE ONE Administration Trimethoprim/Sulfamethoxazole 1 each 10/15/23 17:57 10/15/23 18:04 Sulfa/Trimethoprim 1 Tablet PO 10/15/23 17:58 1 each ONCE ONE Administration ORDERS Category Date Time Status CT abdomen pelvis w con Stat Cat Scan 10/15/23 14:20 Completed CBC w/Auto Diff [Complete Blood Count Auto Diff] Stat Lab 10/15/23 14:17 Completed CMP [Comprehensive Metabolic Panel] Stat Lab 10/15/23 14:17 Completed Procalcitonin Stat Lab 10/15/23 14:17 Completed UA [Urinalysis and Microscopic] Stat Lab 10/15/23 13:19 Completed Urine Culture Stat Micro 10/15/23 13:19 Received Medical Decision Narrative: In summary patient is a 58-year-old male who presents to the emergency department for evaluation of hematuria and malaise. Patient is hemodynamically stable upon arrival, afebrile. Physical exam is remarkable for no abdominal fullness or pain on palpation however patient is paraplegic thus exam is possibly misleading. Differential diagnosis includes UTI versus pyelonephritis versus cystitis versus kidney stone etc. Initial workup will be conducted with hematologic labs urinalysis CT scan abdomen pelvis. Initial interventions include crystalloid bolus Toradol Tylenol. Initial workup reviewed by me shows that his hematologic labs are nonactionable however his urinalysis does show 2+ leuks 3+ blood with microscopic exam showing 10-20 reds too numerous to count white cells 2+ bacteria and yeast. My informal interpretation of his CT scan abdomen pelvis shows significantly thickened bladder wall with some stranding around prior to radiology read upon repeat evaluation patient did feel subjectively better after initial intervention. Given this patient is appropriate for discharge with referral back to urology for possible cystoscopy for tissue biopsy given his CT findings. He will be started on Bactrim for 21 days but likely needs to be on a much longer course. Critical Care Critical Care Time Critical Care Time: No
[2023-10-15 14:37] LABS: Basophils % 0.7 % (0.1-2.0); Eosinophils # 0.1 K/mm3 (0.0-0.4); Eosinophils % 2.4 % (0.1-12.0); Hematocrit 38.6 % (42.0-52.0); Lymphocytes # 1.4 K/mm3 (0.7-4.5); Lymphocytes % 29.8 % (10-50); Mean Corpuscular HGB Conc 36.4 g/dL (31.8-35.4); Mean Corpuscular Hemoglobin 33.9 pg (27.0-31.2); Mean Corpuscular Volume 93.2 fl (80-94); Mean Platelet Volume 7.6 fl (7.4-10.4); Monocytes # 0.2 K/mm3 (0.1-1.0); Monocytes % 4.9 % (1.7-9.3); Neutrophils % 62.3 % (37.0-80.0); Platelet Count 264 K/mm3 (142-424); Red Blood Count 4.14 M/mm3 (4.60-6.20); Red Cell Distribution Width 13.9 % (11.5-17.5); White Blood Count 4.7 K/mm3 (4.8-10.8)
[2023-10-15 14:58] LABS: Alanine Aminotransferase 32 U/L (12-78); Albumin/Globulin Ratio 1.1 (1.1-1.8); Alkaline Phosphatase 71 U/L (38-126); Anion Gap 11.9 mEq/L (5-15); Aspartate Amino Transferase 37 U/L (17-59); Bilirubin,Total 0.6 mg/dl (0.2-1.3); Blood Urea Nitrogen 13 mg/dl (9-20); Calcium 9.5 mg/dl (8.4-10.2); Carbon Dioxide 29 mmol/L (22.0-30.0); Chloride 104 mmol/L (98-107); Creatinine Clearance Estimated 106 mL/min (50-200); Estimated Glomerular Filt Rate 86 ml/min (>60); GFR (African American) 104 ML/MIN (>60); Globulin 3.5 g/dL (1.3-3.2); Glucose 150 mg/dl (74-100); Potassium 3.9 mmoL/L (3.5-5.1); Sodium 141 mmol/L (136-145); Total Protein,Serum 7.5 g/dl (6.3-8.2)
[2023-10-15 15:15] LABS: Procalcitonin 0.079 ng/mL (0.0-2.0)
[2023-10-15 15:21] VITALS: BP 118/79; PULSE 91; O2SAT 99
[2023-10-15] MEDS: IOPAMIDOL-370 (76%);100ML BOTTLE 75 ML IV (15:28)
[2023-10-15] MEDS: SODIUM CHLORIDE 0.9% 10ML SYR (RAD ONLY) 10 ML IV (15:28)
[2023-10-15 16:00] VITALS: BP 110/81; PULSE 91; O2SAT 98
[2023-10-15] MEDS: ACETAMINOPHEN 1,000MG/100ML VIAL 1000 MG IV (16:38)
[2023-10-15] MEDS: 0.9 % SODIUM CHLORIDE 1000ML 1,000 ML 999 ML IV (16:38)
[2023-10-15 17:50] VITALS: BP 119/72; PULSE 89; O2SAT 96
[2023-10-15] MEDS: SULFA/TRIMETHOPRIM 1 TABLET 1 EACH PO (18:04)
[2023-10-15 18:20] VITALS: BP 121/87; PULSE 94; RESP 20; TEMP 36.5; O2SAT 99
== END 2023-10-15 18:21 | disposition home or self-care (01) ==
PROVIDERS: Emergency Medicine; Physician Assistant; Emergency Provider Student in an Organized Health Care Education/Training Program; PCP Internal Medicine
DX: N39.0 Urinary tract infection, site not specified (principal); R31.9 Hematuria, unspecified; R53.81 Other malaise; F17.290 Nicotine dependence, other tobacco product, uncomplicated
CPT/HCPCS: 74177; 80053; 81001; 84145; 85025; 87086; 96361; 96374; 99284; J0131; Q9967

== ENCOUNTER 2023-10-28 11:00 | Outpatient (CLI) | payer MEDICARE, SELFPAY ==
[2023-10-28 15:35] LABS: Microscopic, Urine URINE MICROSCOPIC (MICROSCOPIC)
[2023-10-28 16:59] LABS: Appearance,Urine SL CLOUDY (Clear); Bilirubin,Urine Negative (Negative); Blood, Urine 3+ (Negative); Color,Urine YELLOW (Yellow); Glucose,Urine (UA) 3+ (Negative); Ketones,Urine Negative (Negative); Leukocyte Esterase,Urine 1+ (Negative); Nitrate,Urine Negative (Negative); Protein,Urine 1+ (Negative); Specific Gravity, Urine 1.025 (1.005-1.030); Urobilinogen,Urine 0.2 EU/dl (0.2)
[2023-10-28 20:24] LABS: WBC,Urine TNTC #/hpf (0-3)
[2023-10-28 20:25] LABS: Bacteria,Urine 2+ /lpf
== END 2023-10-28 23:59 | disposition home or self-care (01) ==
LOC: LAB.DROPOF 10-29 09:53
PROVIDERS: PCP Urology; Visit Provider Urology
DX: N39.0 Urinary tract infection, site not specified (principal); B95.2 Enterococcus as the cause of diseases classified elsewhere
CPT/HCPCS: 81001; 87086; 87088; 87186

== ENCOUNTER 2023-12-20 09:49 | Day surgery (SDC) | payer MEDICARE, SELFPAY ==
[2023-12-18 14:20] VITALS: BMI 24.4
[2023-12-20 10:12] VITALS: BP 168/87; PULSE 88; RESP 18; TEMP 36.6; O2SAT 99
[2023-12-20] MEDS: LACTATED RINGERS 1000ML 1,000 ML 25 ML IV (10:33)
[2023-12-20] MEDS: LIDOCAINE 2% UROJET 10ML 10 ML (10:33)
--- NOTE | 2023-12-20 10:33 | [facility].PROCNOTE ---
[facility] Procedure Note Date: 12/20/23 Time: 10:33 Procedure Note:: Chart review: The patient is a paraplegic for many years. He is on intermittent cath at home. The patient has a thickened bladder wall with his CT scan and cystoscopy was recommended. He also has some microscopic hematuria. Preop diagnosis: Hematuria Postop diagnosis: Hematuria Operative note: Patient was brought to the cystoscopy suite. He was prepped and draped in the standard fashion. He underwent flexible cystoscopy. The anterior urethra is unremarkable. The patient from the [facility] has early grade 1 prostate obstruction. Inspection of the bladder shows some floating debris. The debris had to secure some of the visibility somewhat. However I see no evidence of bladder stone tumor hemorrhage or infection. The ureteral orifices seem to be normal bilaterally. He tolerated the procedure well.
[2023-12-20 10:40] VITALS: BP 154/87; PULSE 84; RESP 16; TEMP 36.8; O2SAT 99
[2023-12-20 19:33] LABS: POC Glucose,Bedside 255 (70-110)
== END 2023-12-20 10:47 | disposition home or self-care (01) ==
PROVIDERS: PCP Internal Medicine; Visit Provider Urology
PROC: 0TJB8ZZ Inspection of Bladder, Via Natural or Artificial Opening Endoscopic (ICD-10-PCS; CPT 52000; principal; 2023-12-20 10:45)
DX: R31.9 Hematuria, unspecified (principal); N32.89 Other specified disorders of bladder; N40.0 Benign prostatic hyperplasia without lower urinary tract symptoms; E11.8 Type 2 diabetes mellitus with unspecified complications; Z79.84 Long term (current) use of oral hypoglycemic drugs
CPT/HCPCS: 52000; 82962; J7120

== ENCOUNTER 2024-01-27 15:39 | Outpatient (CLI) | payer MEDICARE, SELFPAY | END 2024-01-27 23:59 | disposition home or self-care (01) | LOC: LAB.DROPOF 15:40 | PROVIDERS: PCP Urology; Visit Provider Urology | DX: N39.0 Urinary tract infection, site not specified (principal) | CPT/HCPCS: 87086 ==

== ENCOUNTER 2024-03-05 19:18 | Outpatient (CLI) | payer OTHER, MEDICARE, SELFPAY | END 2024-03-05 23:59 | disposition home or self-care (01) | LOC: LAB 19:25 | PROVIDERS: PCP Internal Medicine; Visit Provider Internal Medicine | DX: N39.0 Urinary tract infection, site not specified (principal); R35.0 Frequency of micturition | CPT/HCPCS: 87086; 87088; 87186 ==

== ENCOUNTER 2024-04-27 13:00 | Outpatient (CLI) | payer OTHER, MEDICARE, SELFPAY ==
[2024-04-27 17:16] LABS: Microscopic,Cath URINE MICROSCOPIC (MICROSCOPIC)
[2024-04-27 17:48] LABS: Appearance,Urine/Cath SL CLOUDY (Clear); Bilirubin,Cath Negative (Negative); Blood, Urine/Cath 3+ (Negative); Color,Urine/Cath YELLOW (Yellow); Glucose,Urine/Cath (UA) 3+ (Negative); Ketones,Urine/Cath Negative (Negative); Leukocyte Esterase,Cath 1+ (Negative); Nitrate,Cath Negative (Negative); Protein,Urine/Cath 2+ (Negative); Specific Gravity, Urine/Cath 1.025 (1.005-1.030); Urobilinogen,Cath 0.2 EU/dl (0.2)
[2024-04-27 18:07] LABS: Bacteria,Urine/Cath 1+ /lpf; Squamous Epithelial Ur./Cath Occasional #/hpf (0-5)
== END 2024-04-27 23:59 | disposition home or self-care (01) ==
LOC: LAB.DROPOF 04-28 16:37
PROVIDERS: PCP Urology; Visit Provider Urology
DX: N39.0 Urinary tract infection, site not specified (principal); N31.9 Neuromuscular dysfunction of bladder, unspecified
CPT/HCPCS: 81001; 87086; 87088; 87186

== ENCOUNTER 2024-05-04 11:30 | Outpatient (CLI) | payer OTHER, MEDICARE, SELFPAY ==
[2024-05-04 16:31] LABS: Microscopic, Urine URINE MICROSCOPIC (MICROSCOPIC)
[2024-05-04 18:06] LABS: Appearance,Urine CLEAR (Clear); Bilirubin,Urine Negative (Negative); Blood, Urine Negative (Negative); Color,Urine YELLOW (Yellow); Glucose,Urine (UA) Negative (Negative); Ketones,Urine Negative (Negative); Leukocyte Esterase,Urine Negative (Negative); Nitrate,Urine Negative (Negative); Protein,Urine Negative (Negative); Specific Gravity, Urine >= 1.030 (1.005-1.030); Urobilinogen,Urine 0.2 EU/dl (0.2)
[2024-05-04 19:24] LABS: Bacteria,Urine 2+ /lpf; WBC,Urine 50-100 #/hpf (0-3)
== END 2024-05-04 23:59 | disposition home or self-care (01) ==
LOC: LAB.DROPOF 05-06 12:30
PROVIDERS: PCP Urology; Visit Provider Urology
DX: N39.0 Urinary tract infection, site not specified (principal); N31.9 Neuromuscular dysfunction of bladder, unspecified
CPT/HCPCS: 81001; 87086; 87088; 87186

== ENCOUNTER 2024-08-03 11:30 | Outpatient (CLI) | payer OTHER, MEDICARE, SELFPAY ==
[2024-08-03 12:26] LABS: Blood Urea Nitrogen 14 mg/dl (9-20); Estimated Glomerular Filt Rate 76 ml/min (>60); GFR (African American) 92 ML/MIN (>60)
== END 2024-08-03 23:59 | disposition home or self-care (01) ==
LOC: LAB 11:31
PROVIDERS: PCP Internal Medicine; Visit Provider Urology
DX: N39.0 Urinary tract infection, site not specified (principal)
CPT/HCPCS: 36415; 82565; 84520

== ENCOUNTER 2024-09-02 09:35 | Outpatient (CLI) | payer OTHER, MEDICARE, SELFPAY ==
[2024-09-02 16:58] LABS: Microscopic, Urine URINE MICROSCOPIC (MICROSCOPIC)
[2024-09-02 17:28] LABS: Bilirubin,Urine Negative (Negative); Color,Urine YELLOW (Yellow); Glucose,Urine (UA) Negative (Negative); Ketones,Urine Negative (Negative); Leukocyte Esterase,Urine 3+ (Negative); PH,Urine 6.0 (5.0-8.5); Protein,Urine 1+ (Negative); Specific Gravity, Urine 1.025 (1.005-1.030); Urobilinogen,Urine 0.2 EU/dl (0.2)
[2024-09-02 17:45] LABS: RBC,Urine TNTC #/hpf (0-3); WBC,Urine TNTC #/hpf (0-3)
[2024-09-02 17:46] LABS: Bacteria,Urine 4+ /lpf
--- OUTSIDE RECORDS SUMMARY | 2024-09-07 09:46 | XMS_ITS | Clinical Summary ---
Author Organization [facility] Address [address] [place] [address] Phone Care Team Providers Care Classifier Operator Name Role Phone Keon SALGADO, Sarath Sandoval [...] back, buttock and hip, stage 4 Nausea [id number] (SNOMED CT) 03/05 Inactive 03/05 Minoodanika Buckner Nausea Nausea 413258671 (SNOMED CT) 03/05 Removed 03/05 Sarath Herbert MD Nausea Osteomyeliti s of vertebra, sacral region M46.28 (ICD-10-CM ) Inactive Belen W Osteomyelitis of vertebra, sacral and sacrococcygeal region STENOTROPHOM ONAS B96.89 (ICD-10-CM ) Active Belen W Other specified bacterial agents as the cause of diseases classified elsewhere 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 Belen 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 920151003 (SNOMED CT) Active Belen W Infection caused by Enterococcus MRSA B95.62 (ICD-10-CM ) Active Belen W Methicillin resistant Staphylococcus aureus infection as the cause of diseases classified elsewhere Pelvic sidewall abscess K65.1 (ICD-10-CM ) 10/28 Inactive 10/28 Belen W Peritoneal abscess Chronic osteomyeliti s, left ischial 875319533 (SNOMED CT) Active Belen W Chronic osteomyelitis of femur Anemia in chronic diseases D63.8 (ICD-10-CM ) 10/31 Active 10/31 Belen W Anemia in other chronic diseases classified elsewhere HX MRSA Z86.14 (ICD-10-CM ) Inactive Belen W Personal history of Methicillin resistant Staphylococcus aureus infection Tinea corporis 61274034 (SNOMED CT) 11/07 Active 11/07 Sarath Herbert MD Tinea corporis Obesity, BMI 30-34.9, adult 869825465 (SNOMED CT) 11/01 Inactive 11/01 Belen W [...] hip, stage 4 Obesity, BMI 30-34.9, adult 285715953 (SNOMED CT) 11/01 Removed 11/01 Aye Joaquin RN Obesity Pressure ulcer of sacral region, stage 4 231520046 (SNOMED CT) 05/19 Inactive 05/19 Belen W Pressure ulcer stage 4 Benign Essential Hypertension 48691479 (SNOMED CT) 10/31 Active 10/31 Minoo Dudley [...] Nicotine dependence, chewing tobacco, uncomplicated PELVIC ABSCESS 280694561 (SNOMED CT) 10/28 Inactive 10/28 Belen W Pelvic abscess Cellulitis/W ound Infection-Le ft Buttock region L03.317 (ICD-10-CM ) 12/01 Inactive 12/01 Belen W Cellulitis of buttock Abscess, buttock 86839950 (SNOMED CT) Inactive Belen W Abscess of buttock Chronic osteomyeliti s with draining sinus, left pelvic region 835571796 (SNOMED CT) 08/29 Inactive 08/29 Belen W Chronic osteomyelitis with draining sinus Chronic osteomyeliti s with draining sinus, left pelvic region 038349781 (SNOMED CT) 08/29 Removed 08/29 Minoo Dudley Chronic osteomyelitis with draining sinus Pressure ulcer of left ischium, stage 4 L89.324 (ICD-10-CM ) 05/19 Inactive 05/19 Minoo Dudley Pressure ulcer of left buttock, stage 4 Pressure ulcer of left ischium, stage 3 L89.323 (ICD-10-CM ) 05/19 Removed 05/19 Minoo Dudley Pressure ulcer of left buttock, stage 3 Abscess, buttock 30804271 (SNOMED CT) Removed Minoo Buckner Abscess of buttock Diabetes mellitus type II 99751855 (SNOMED CT) Active Minoo Buckner Type 2 diabetes mellitus Hx of MRSA infection 666734471 (SNOMED CT) Active Minoo Buckner H/O: infectious [...] the cause of diseases classified elsewhere MRSA 051875489 (SNOMED CT) Inactive Belen W Methicillin resistant Staphylococcus aureus infection ENTEROCOCCUS B95.2 (ICD-10-CM ) Removed Belen W Enterococcus as the cause of diseases classified elsewhere Pressure ulcer of Left Ischium Stage IV L89.44 (ICD-10-CM ) Removed Belen W Pressure ulcer of contiguous site of back, buttock and hip, stage 4 Paraplegia 27260270 (SNOMED CT) Active Belen Cano Paraplegia Diabetes mellitus type II, not stated as uncontrolled E11.9 (ICD-10-CM ) Inactive Belen Cano Type 2 diabetes mellitus without complications Cellulitis and abscess of buttock 052161012 (SNOMED CT) 12/01 Inactive 12/01 Ashley Joseph RN Cellulitis and abscess of buttock Medications Medication Instructions Start Date Stop Date Generic Name ND Provider BACTRIM DS 800-160 MG TABS 1 by mouth twice a day SULFAMETHOXAZOLE -TRIMETHOPRIM [id number] Sarath Herbert MD BACTRIM DS 800-160 MG TABS 1 by mouth twice a day SULFAMETHOXAZOLE -TRIMETHOPRIM 28719124228 Sarath Herbert MD BACTRIM DS 800-160 MG TABS 1 by mouth twice a day SULFAMETHOXAZOLE -TRIMETHOPRIM 34630331347 Sarath Herbert MD CEFTAZIDIME SOLR 2gm IV Q8hrs OPAT CEFTAZIDIME SOLR 35526341913 Carolee Araujo RN ZOFRAN 4 MG ORAL TABLET 1 by mouth 3 times a day 7 days for nausea ONDANSETRON HCL 19214931603 Sarath Herbert MD PRAVACHOL 40 MG ORAL TABLET by mouth daily PRAVASTATIN SODIUM 56091523081 Annakain Kilgore GLIPIZIDE XL TABLET EXTENDED RELEASE 24 HOUR 2 tabs daily GLIPIZIDE [id number] 99351381164 Jesús P LORTAB 5-325 MG ORAL TABLET by mouth three times a day as needed HYDROCODONE-ACET AMINOPHEN 25798905581 Jesús P ASCORBIC ACID 500 MG TABS by mouth daily ASCORBIC ACID 44717850131 Jesús P BACLOFEN TABS 2 tabs four times a day BACLOFEN TABS 55039523522 Jesús P DANTROLENE SODIUM 100 MG CAPS by mouth three times a day DANTROLENE SODIUM 69517235985 Jesús P PEPCID 20 MG TABS by mouth twice daily FAMOTIDINE 55809132175 Jesús P NEURONTIN 600 MG TABS by mouth four times a day GABAPENTIN 10842675906 Jesús P ACIDOPHILUS 100 MG CAPS 2 tabs daily for 14 days LACTOBACILLUS 68705635926 Jesús P KEPPRA 500 MG TABS by mouth four times a day LEVETIRACETAM 31156149463 Jesús P LORAZEPAM 0.5 MG TABS q.h.s. p.r.n. LORAZEPAM 24960097320 Jesús P PRAVACHOL 40 MG ORAL TABLET by mouth daily PRAVASTATIN SODIUM 69902232979 Jesús P VITAMIN E-400 400 UNIT ORAL CAPSULE by mouth daily VITAMIN E 72385408346 Jesús P ORAZINC 220 (50 Zn) MG CAPS by mouth daily ZINC SULFATE 96755399969 Jesús P DANTROLENE SODIUM 100 MG CAPS take by mouth 3 times a day DANTROLENE SODIUM 92007516285 Jesús P GABAPENTIN 600 MG TABS take by mouth four times a day GABAPENTIN 78162198328 Jesús P GLIPIZIDE ER 5 MG [id number] take by mouth daily GLIPIZIDE 20826691231 Jesús P LEVETIRACETAM 500 MG TABS take by mouth 4 times a day LEVETIRACETAM 05737565678 Jesús P METFORMIN HCL 500 MG TABS take 1000mg by mouth a day with meals METFORMIN HCL 17434757382 Jesús P METRONIDAZOLE 500 MG TABS take 1 tab by mouth every 8 hours for 28 days METRONIDAZOLE 69965003000 Jesús P MIRALAX ORAL PACKET take 17g by mouth two times a day POLYETHYLENE GLYCOL 3350 69476622206 Jesús P FLORASTOR 250 MG CAPS take 250mg by mouth two times a day SACCHAROMYCES BOULARDII 50212080811 Jesús P CUBICIN 500 MG INTRAVENOUS SOLUTION RECONSTITUTED CUBICIN 500MG IV Q 24 HRS/OPAT DAPTOMYCIN 88307421685 Jesús P FLUCONAZOLE 200 MG TABS 1 by mouth daily 7 days FLUCONAZOLE 10961794640 Jesús P CEFTAZIDIME SOLR 2gm IV Q8hrs OPAT CEFTAZIDIME SOLR 84327914637 Lexi Humphries RN MERREM 1 GM INTRAVENOUS SOLUTION RECONSTITUTED MERREM 1 GM IV Q 12 HRS/OPAT MEROPENEM 47392078744 Lexi Humphries RN FLUCONAZOLE 200 MG TABS 1 by mouth daily 7 days FLUCONAZOLE 45925133700 Sarath Herbert MD JANUVIA 100 MG TABS take 100 mg by mouth daily SITAGLIPTIN PHOSPHATE 25923687613 Roshan Cano FLORASTOR 250 MG CAPS take 250mg by mouth two times a day SACCHAROMYCES BOULARDII 48424883734 Roshan Cano MIRALAX ORAL PACKET take 17g by mouth two times a day POLYETHYLENE GLYCOL 3350 27564031653 Roshan Cano OXYBUTYNIN CHLORIDE 5 MG TABS take by mouth three times a day OXYBUTYNIN CHLORIDE 69314563161 Roshan Cano METRONIDAZOLE 500 MG TABS take 1 tab by mouth every 8 hours for 28 days METRONIDAZOLE 70693519326 Roshan Cano METFORMIN HCL 500 MG TABS take 1000mg by mouth a day with meals METFORMIN HCL 38330062761 Roshan Cano LEVETIRACETAM 500 MG TABS take by mouth 4 times a day LEVETIRACETAM 29137187794 Roshan Cano GLIPIZIDE ER 5 MG [id number] take by mouth daily GLIPIZIDE 29408419851 Roshan Cano GABAPENTIN 600 MG TABS take by mouth four times a day GABAPENTIN 93345768391 Roshan Rachael DANTROLENE SODIUM 100 MG CAPS take by mouth 3 times a day DANTROLENE SODIUM 61152907984 Roshan Cano GLIPIZIDE ER 5 MG [id number] take 1 daily GLIPIZIDE 97673058466 Roshan Cano METFORMIN HCL 1000 MG TABS take 1 tablet twice daily METFORMIN HCL 03221968297 Roshan Rachael JANUVIA 100 MG TABS take 1 tablet daily SITAGLIPTIN PHOSPHATE 01483335060 Roshan Cano BACLOFEN 20 MG TABS take 2 tablets 4 times daily BACLOFEN 82566298690 Roshan Rachael DANTROLENE SODIUM 100 MG CAPS take 1 capsule 3 times daily DANTROLENE SODIUM 41412223023 Roshan Cano NEURONTIN 600 MG TABS take 1 tablet 4 times daily GABAPENTIN 26791396054 Roshan Rachael KEPPRA 500 MG TABS take 1 tablet 4 times daily LEVETIRACETAM 55223950260 Roshan Cano OXYBUTYNIN CHLORIDE 5 MG TABS take 1 tablet 3 times daily as needed OXYBUTYNIN CHLORIDE 07200976536 Roshan Cano PRAVACHOL 40 MG ORAL TABLET take 1 tablet daily PRAVASTATIN SODIUM 29919329346 Roshan Cano FLORASTOR 250 MG CAPS take 1 capsule daily SACCHAROMYCES BOULARDII 63055299011 Roshan Cano CUBICIN 500 MG INTRAVENOUS SOLUTION RECONSTITUTED CUBICIN 500MG IV Q 24 HRS/OPAT DAPTOMYCIN 89960448235 Carolee Araujo RN MERREM 1 GM INTRAVENOUS SOLUTION RECONSTITUTED MERREM 1 GM IV Q 12 HRS/OPAT MEROPENEM 11304400036 Carolee Araujo RN PRAVACHOL 40 MG ORAL TABLET take 1 tablet daily PRAVASTATIN SODIUM 68425070250 Janell S LEVAQUIN TABS by mouth daily, dose unknown LEVOFLOXACIN TABS 81083861939 Janell S LEVAQUIN 500 MG ORAL TABLET 1 by mouth daily 7 days LEVOFLOXACIN 42011556143 Janell S LEVAQUIN 500 MG ORAL TABLET 1 by mouth daily 7 days LEVOFLOXACIN 72263904987 Sarath Herbert MD PEPCID 20 MG TABS take 1 daily FAMOTIDINE 39755661431 Yolande D FLAGYL 500 MG ORAL TABLET take 1 daily METRONIDAZOLE 38895135822 Yolande D NYSTATIN 439395 UNIT TABS take 1 tablet 4 times daily NYSTATIN 04716615718 Yolande D DOXYCYCLINE HYCLATE 100 MG CAPS Take one by mouth twice daily. DOXYCYCLINE HYCLATE 51425210758 Yolande D LEVAQUIN TABS by mouth daily, dose unknown LEVOFLOXACIN TABS 39732529666 Yolande D DOXYCYCLINE HYCLATE 100 MG CAPS Take one by mouth twice daily. DOXYCYCLINE HYCLATE 82077126060 Savita L VANCOMYCIN HCL SOLR 1 gm IV Q12hrs/ OPAT VANCOMYCIN HCL SOLR 08264219059 Maciej Jara FORTAZ 2 GM INTRAVENOUS SOLUTION RECONSTITUTED 2gm IV Q8hrs/ OPAT CEFTAZIDIME 99933820397 Maciej Jara FLORASTOR 250 MG CAPS take 1 capsule daily SACCHAROMYCES BOULARDII 51806582797 Connie A PRAVACHOL 40 MG ORAL TABLET take 1 tablet daily PRAVASTATIN SODIUM 98425593749 Connie A OXYBUTYNIN CHLORIDE 5 MG TABS take 1 tablet 3 times daily as needed OXYBUTYNIN CHLORIDE 20041673094 Connie A NYSTATIN 596117 UNIT TABS take 1 tablet 4 times daily NYSTATIN 18351883876 Connie A FLAGYL 500 MG ORAL TABLET take 1 daily METRONIDAZOLE 92386452670 Connie A KEPPRA 500 MG TABS take 1 tablet 4 times daily LEVETIRACETAM 80546730957 Connie A NEURONTIN 600 MG TABS take 1 tablet 4 times daily GABAPENTIN 28820104464 Connie A PEPCID 20 MG TABS take 1 daily FAMOTIDINE 78465227543 Connie A DANTROLENE SODIUM 100 MG CAPS take 1 capsule 3 times daily DANTROLENE SODIUM 50741305677 Connie A BACLOFEN 20 MG TABS take 2 tablets 4 times daily BACLOFEN 69286711677 Connie A JANUVIA 100 MG TABS take 1 tablet daily SITAGLIPTIN PHOSPHATE 99874999708 Connie A METFORMIN HCL 1000 MG TABS take 1 tablet twice daily METFORMIN HCL 77637732373 Connie A GLIPIZIDE ER 5 MG [id number] take 1 daily GLIPIZIDE 62609548193 Connie A VANCOMYCIN HCL SOLR 1 gm IV Q12hrs/ OPAT VANCOMYCIN HCL SOLR 18618883795 Gunjan Renner RN FORTAZ 2 GM INTRAVENOUS SOLUTION RECONSTITUTED 2gm IV Q8hrs/ OPAT CEFTAZIDIME 51552776967 Gunjan Renner RN VANCOMYCIN HCL SOLR 1.25gm IV Q12hrs/ OPAT VANCOMYCIN HCL SOLR 19076372344 Gunjan Renner RN Medications Administered No information [...] Documenta tion of current medications (procedure) DIET MANAGER ACQUISITION yes Dietary management education, guidance, and counseling (procedure) ORALTOBACUSE Current Tobacco smoking status SMOK STATUS Never smoker 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 Lab Report: BASIC METABOLIC PANEL [...] 16/02/22 CPT-Cooral Continue oral antibiotics 20 16/02/05 CPT-87056 CMP [id number] CBC with Differential 2015 CPT-32200 C- reactive protein CPT-40214 BMP CPT-Cooral Continue oral antibiotics 20 17/01/21 [id number] CBC with Differential 2015 CPT-89462 C- reactive protein CPT-06109 CMP CPT- stat weekly Stat Weekly Labs [...] New IV antibiotic CPT-J0878 Daptomycin CPT-J2185 Meropenem CPT-94830 CMP 37482 Hepatitis C Atb: (ICD 10 Code: Z11.59) 20 17/10/08 CPT-34967 CMP [id number] CBC with Differential 2015 CPT-72276 C- reactive protein [id number], [id number] CPK CPT-48142 Sedimentation Rate (ESR) 201 08/07/26 CPT-Cooral Continue oral antibiotics 20 17/08/26 CPT-10750 CMP CPT-46010 CBC w/o Differential CPT-79396 C- reactive protein CPT-17297 Sedimentation Rate (ESR) 201 08/03/25 CPT-PICREM PICC [...] Weight Measured 199 [lb_av] weight E& M Weight Measured 199 [lb_av] weight E& M [...]
--- OUTSIDE RECORDS SUMMARY | 2024-09-07 09:47 | XMS_ITS ---
Author Organization Unknown [facility] Start Date Provider Encounter for Check-up [phone] [facility]
--- OUTSIDE RECORDS SUMMARY | 2024-09-07 09:47 | XMS_ITS | Clinical Summary ---
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 Name Role Phone Unavailable Primary Care Provider Unavailabl e Family History Medical History Relation Name Comments Diabetes Father Diabetes Mother Relation Name Status Comments Father Mother Social History Tobacco Use Types Packs/Day Years Used Date Smoking Tobacco: Every Day Smokeless Tobacco: Current Alcohol Use Standard Drinks/Week Comments No 0 (1 standard drink = 0.6 oz pur e alcohol) Sex and Gender Information Value Date Recorded Sex Assigned at Not on file Legal Sex Male 8:42 PM EDT Gender Identity Not on file Sexual Orientation Not on file Last Filed Vital Signs Vital Sign Reading Time Taken Comments Blood Pressure 99/68 01/01/2020 4:45 PM EDT Pulse 106 01/01/2020 4:45 PM EDT Temperature 36.8 C (98.2 F) 01/01/2020 4:45 PM EDT Respiratory Rate 18 01/01/2020 4:45 PM EDT Oxygen Saturation - - Inhaled Oxygen Concentration - - Weight 85.7 kg (189 lb) 05/21/2019 10:14 AM EDT Height 185.4 cm (6' 1 ) 05/21/2019 10:14 AM EDT Body Mass Index 24.94 05/21/2019 10:14 AM EDT Plan of Treatment Not on file Additional Health Concerns Infection Onset Date Last Indicated MRSA Comment:Wound culture positive for MRSA 05/06/2019 07/26/2020 [place] [address] [employer]
== END 2024-09-02 23:59 | disposition home or self-care (01) ==
LOC: LAB.DROPOF 09-07 09:37
PROVIDERS: PCP Internal Medicine; Visit Provider Internal Medicine
DX: N39.0 Urinary tract infection, site not specified (principal)
CPT/HCPCS: 81001; 87086

== ENCOUNTER 2025-03-01 11:00 | Outpatient (CLI) | payer OTHER, MEDICARE, SELFPAY ==
--- OUTSIDE RECORDS SUMMARY | 2025-03-02 10:16 | XMS_ITS | Clinical Summary ---
Author Organization [facility] Address [address] [place] [address] Phone Care Team Providers Care Inspector Poising Name Role Phone Keon SALGADO, Sarath Sandoval [...] back, buttock and hip, stage 4 Nausea [id number] (SNOMED CT) 03/05 Inactive 03/05 Minoodanika Buckner Nausea Nausea 921184774 (SNOMED CT) 03/05 Removed 03/05 Sarath Herbert MD Nausea Osteomyeliti s of vertebra, sacral region M46.28 (ICD-10-CM ) Inactive Belen W Osteomyelitis of vertebra, sacral and sacrococcygeal region STENOTROPHOM ONAS B96.89 (ICD-10-CM ) Active Belen W Other specified bacterial agents as the cause of diseases classified elsewhere 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 Belen 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 860957289 (SNOMED CT) Active Belen W Infection caused by Enterococcus MRSA B95.62 (ICD-10-CM ) Active Belen W Methicillin resistant Staphylococcus aureus infection as the cause of diseases classified elsewhere Pelvic sidewall abscess K65.1 (ICD-10-CM ) 10/28 Inactive 10/28 Belen W Peritoneal abscess Chronic osteomyeliti s, left ischial 153020625 (SNOMED CT) Active Belen W Chronic osteomyelitis of femur Anemia in chronic diseases D63.8 (ICD-10-CM ) 10/31 Active 10/31 Belen W Anemia in other chronic diseases classified elsewhere HX MRSA Z86.14 (ICD-10-CM ) Inactive Belen W Personal history of Methicillin resistant Staphylococcus aureus infection Tinea corporis 16883700 (SNOMED CT) 11/07 Active 11/07 Sarath Herbert MD Tinea corporis Obesity, BMI 30-34.9, adult 306430910 (SNOMED CT) 11/01 Inactive 11/01 Belen W [...] hip, stage 4 Obesity, BMI 30-34.9, adult 453161733 (SNOMED CT) 11/01 Removed 11/01 Aye Joaquin RN Obesity Pressure ulcer of sacral region, stage 4 634345802 (SNOMED CT) 05/19 Inactive 05/19 Belen W Pressure ulcer stage 4 Benign Essential Hypertension 03303287 (SNOMED CT) 10/31 Active 10/31 Minoo Dudley Benign hypertension Anemia in chronic diseases (document disease) D63.8 (ICD-10-CM ) 10/31 Inactive 10/31 Miono Dudley Anemia in other chronic diseases classified [...] Nicotine dependence, chewing tobacco, uncomplicated PELVIC ABSCESS 666500882 (SNOMED CT) 10/28 Inactive 10/28 Belen W Pelvic abscess Cellulitis/W ound Infection-Le ft Buttock region L03.317 (ICD-10-CM ) 12/01 Inactive 12/01 Belen W Cellulitis of buttock Abscess, buttock 12162129 (SNOMED CT) Inactive Belen W Abscess of buttock Chronic osteomyeliti s with draining sinus, left pelvic region 355788534 (SNOMED CT) 08/29 Inactive 08/29 Belen W Chronic osteomyelitis with draining sinus Chronic osteomyeliti s with draining sinus, left pelvic region 250899271 (SNOMED CT) 08/29 Removed 08/29 Minoo Dudley Chronic osteomyelitis with draining sinus Pressure ulcer of left ischium, stage 4 L89.324 (ICD-10-CM ) 05/19 Inactive 05/19 Minoo Dudley Pressure ulcer of left buttock, stage 4 Pressure ulcer of left ischium, stage 3 L89.323 (ICD-10-CM ) 05/19 Removed 05/19 Minoo Dudley Pressure ulcer of left buttock, stage 3 Abscess, buttock 66664368 (SNOMED CT) Removed Minoo Buckner Abscess of buttock Diabetes mellitus type II 33476354 (SNOMED CT) Active Minoo Buckner Type 2 diabetes mellitus Hx of MRSA infection 695374599 (SNOMED CT) Active Minoo Buckner H/O: infectious [...] the cause of diseases classified elsewhere MRSA 896189906 (SNOMED CT) Inactive Belen W Methicillin resistant Staphylococcus aureus infection ENTEROCOCCUS B95.2 (ICD-10-CM ) Removed Belen W Enterococcus as the cause of diseases classified elsewhere Pressure ulcer of Left Ischium Stage IV L89.44 (ICD-10-CM ) Removed Belen W Pressure ulcer of contiguous site of back, buttock and hip, stage 4 Paraplegia 42283983 (SNOMED CT) Active Belen Cano Paraplegia Diabetes mellitus type II, not stated as uncontrolled E11.9 (ICD-10-CM ) Inactive Belen Cano Type 2 diabetes mellitus without complications Cellulitis and abscess of buttock 936108846 (SNOMED CT) 12/01 Inactive 12/01 Ashley Joseph RN Cellulitis and abscess of buttock Medications Medication Instructions Start Date Stop Date Generic Name ND Provider BACTRIM DS 800-160 MG TABS 1 by mouth twice a day SULFAMETHOXAZOLE -TRIMETHOPRIM [id number] Sarath Herbert MD BACTRIM DS 800-160 MG TABS 1 by mouth twice a day SULFAMETHOXAZOLE -TRIMETHOPRIM 54553654304 Sarath Herbert MD BACTRIM DS 800-160 MG TABS 1 by mouth twice a day SULFAMETHOXAZOLE -TRIMETHOPRIM 13968226183 Sarath Herbert MD CEFTAZIDIME SOLR 2gm IV Q8hrs OPAT CEFTAZIDIME SOLR 89577052877 Carolee Araujo RN ZOFRAN 4 MG ORAL TABLET 1 by mouth 3 times a day 7 days for nausea ONDANSETRON HCL 69917241516 Sarath Herbert MD PRAVACHOL 40 MG ORAL TABLET by mouth daily PRAVASTATIN SODIUM 33523310928 Annakain Kilgore GLIPIZIDE XL TABLET EXTENDED RELEASE 24 HOUR 2 tabs daily GLIPIZIDE [id number] 93803403089 Jesús P LORTAB 5-325 MG ORAL TABLET by mouth three times a day as needed HYDROCODONE-ACET AMINOPHEN 00638445848 Jesús P ASCORBIC ACID 500 MG TABS by mouth daily ASCORBIC ACID 22938208745 Jesús P BACLOFEN TABS 2 tabs four times a day BACLOFEN TABS 14544913694 Jesús P DANTROLENE SODIUM 100 MG CAPS by mouth three times a day DANTROLENE SODIUM 20453096803 Jesús P PEPCID 20 MG TABS by mouth twice daily FAMOTIDINE 49960217179 Jesús P NEURONTIN 600 MG TABS by mouth four times a day GABAPENTIN 49824486100 Jesús P ACIDOPHILUS 100 MG CAPS 2 tabs daily for 14 days LACTOBACILLUS 66648159599 Jesús P KEPPRA 500 MG TABS by mouth four times a day LEVETIRACETAM 83607833854 Jesús P LORAZEPAM 0.5 MG TABS q.h.s. p.r.n. LORAZEPAM 88443597716 Jesús P PRAVACHOL 40 MG ORAL TABLET by mouth daily PRAVASTATIN SODIUM 83031915134 Jesús P VITAMIN E-400 400 UNIT ORAL CAPSULE by mouth daily VITAMIN E 39818887099 Jesús P ORAZINC 220 (50 Zn) MG CAPS by mouth daily ZINC SULFATE 12020564305 Jesús P DANTROLENE SODIUM 100 MG CAPS take by mouth 3 times a day DANTROLENE SODIUM 28249779802 Jesús P GABAPENTIN 600 MG TABS take by mouth four times a day GABAPENTIN 75241196261 Jesús P GLIPIZIDE ER 5 MG [id number] take by mouth daily GLIPIZIDE 82571954241 Jesús P LEVETIRACETAM 500 MG TABS take by mouth 4 times a day LEVETIRACETAM 64044669711 Jesús P METFORMIN HCL 500 MG TABS take 1000mg by mouth a day with meals METFORMIN HCL 82502844325 Jesús P METRONIDAZOLE 500 MG TABS take 1 tab by mouth every 8 hours for 28 days METRONIDAZOLE 01767114024 Jesús P MIRALAX ORAL PACKET take 17g by mouth two times a day POLYETHYLENE GLYCOL 3350 17090709300 Jesús P FLORASTOR 250 MG CAPS take 250mg by mouth two times a day SACCHAROMYCES BOULARDII 71612752547 Jesús P CUBICIN 500 MG INTRAVENOUS SOLUTION RECONSTITUTED CUBICIN 500MG IV Q 24 HRS/OPAT DAPTOMYCIN 93549269256 Jesús P FLUCONAZOLE 200 MG TABS 1 by mouth daily 7 days FLUCONAZOLE 02848410205 Jesús P CEFTAZIDIME SOLR 2gm IV Q8hrs OPAT CEFTAZIDIME SOLR 61078164742 Lexi Humphries RN MERREM 1 GM INTRAVENOUS SOLUTION RECONSTITUTED MERREM 1 GM IV Q 12 HRS/OPAT MEROPENEM 32264286148 Lexi Humphries RN FLUCONAZOLE 200 MG TABS 1 by mouth daily 7 days FLUCONAZOLE 16421137625 Sarath Herbert MD JANUVIA 100 MG TABS take 100 mg by mouth daily SITAGLIPTIN PHOSPHATE 64120648758 Roshan Cano FLORASTOR 250 MG CAPS take 250mg by mouth two times a day SACCHAROMYCES BOULARDII 73322060361 Roshan Cano MIRALAX ORAL PACKET take 17g by mouth two times a day POLYETHYLENE GLYCOL 3350 35026566704 Roshan Cano OXYBUTYNIN CHLORIDE 5 MG TABS take by mouth three times a day OXYBUTYNIN CHLORIDE 16363193436 Roshan Cano METRONIDAZOLE 500 MG TABS take 1 tab by mouth every 8 hours for 28 days METRONIDAZOLE 27846018688 Roshan Cano METFORMIN HCL 500 MG TABS take 1000mg by mouth a day with meals METFORMIN HCL 08891784623 Roshan Cano LEVETIRACETAM 500 MG TABS take by mouth 4 times a day LEVETIRACETAM 52951149032 Roshan Cano GLIPIZIDE ER 5 MG [id number] take by mouth daily GLIPIZIDE 32754394691 Roshan Cano GABAPENTIN 600 MG TABS take by mouth four times a day GABAPENTIN 17443722150 Roshan Rachael DANTROLENE SODIUM 100 MG CAPS take by mouth 3 times a day DANTROLENE SODIUM 99268397581 Roshan Cano GLIPIZIDE ER 5 MG [id number] take 1 daily GLIPIZIDE 38777728581 Roshan Cano METFORMIN HCL 1000 MG TABS take 1 tablet twice daily METFORMIN HCL 80792054065 Roshan Rachael JANUVIA 100 MG TABS take 1 tablet daily SITAGLIPTIN PHOSPHATE 74076948112 Roshan Cano BACLOFEN 20 MG TABS take 2 tablets 4 times daily BACLOFEN 24889463479 Roshan Rachael DANTROLENE SODIUM 100 MG CAPS take 1 capsule 3 times daily DANTROLENE SODIUM 53839024829 Roshan Cano NEURONTIN 600 MG TABS take 1 tablet 4 times daily GABAPENTIN 23944998661 Roshan Rachael KEPPRA 500 MG TABS take 1 tablet 4 times daily LEVETIRACETAM 94218715727 Roshan Cano OXYBUTYNIN CHLORIDE 5 MG TABS take 1 tablet 3 times daily as needed OXYBUTYNIN CHLORIDE 16571283543 Roshan Cano PRAVACHOL 40 MG ORAL TABLET take 1 tablet daily PRAVASTATIN SODIUM 32844098877 Roshan Cano FLORASTOR 250 MG CAPS take 1 capsule daily SACCHAROMYCES BOULARDII 04637490645 Roshan Cano CUBICIN 500 MG INTRAVENOUS SOLUTION RECONSTITUTED CUBICIN 500MG IV Q 24 HRS/OPAT DAPTOMYCIN 93991775765 Carolee Araujo RN MERREM 1 GM INTRAVENOUS SOLUTION RECONSTITUTED MERREM 1 GM IV Q 12 HRS/OPAT MEROPENEM 72719651523 Carolee Araujo RN PRAVACHOL 40 MG ORAL TABLET take 1 tablet daily PRAVASTATIN SODIUM 33270212878 Janell S LEVAQUIN TABS by mouth daily, dose unknown LEVOFLOXACIN TABS 15486052019 Janell S LEVAQUIN 500 MG ORAL TABLET 1 by mouth daily 7 days LEVOFLOXACIN 05446728573 Janell S LEVAQUIN 500 MG ORAL TABLET 1 by mouth daily 7 days LEVOFLOXACIN 90564323954 Sarath Herbert MD PEPCID 20 MG TABS take 1 daily FAMOTIDINE 16918222627 Yolande D FLAGYL 500 MG ORAL TABLET take 1 daily METRONIDAZOLE 38788528832 Yolande D NYSTATIN 673707 UNIT TABS take 1 tablet 4 times daily NYSTATIN 11354227160 Yolande D DOXYCYCLINE HYCLATE 100 MG CAPS Take one by mouth twice daily. DOXYCYCLINE HYCLATE 49138315567 Yolande D LEVAQUIN TABS by mouth daily, dose unknown LEVOFLOXACIN TABS 16390190922 Yolande D DOXYCYCLINE HYCLATE 100 MG CAPS Take one by mouth twice daily. DOXYCYCLINE HYCLATE 25973473560 Savita L VANCOMYCIN HCL SOLR 1 gm IV Q12hrs/ OPAT VANCOMYCIN HCL SOLR 98531952886 Maciej Jara FORTAZ 2 GM INTRAVENOUS SOLUTION RECONSTITUTED 2gm IV Q8hrs/ OPAT CEFTAZIDIME 76624433069 Maciej Jara FLORASTOR 250 MG CAPS take 1 capsule daily SACCHAROMYCES BOULARDII 90209588867 Connie A PRAVACHOL 40 MG ORAL TABLET take 1 tablet daily PRAVASTATIN SODIUM 22190887292 Connie A OXYBUTYNIN CHLORIDE 5 MG TABS take 1 tablet 3 times daily as needed OXYBUTYNIN CHLORIDE 55650499617 Connie A NYSTATIN 205617 UNIT TABS take 1 tablet 4 times daily NYSTATIN 97840607770 Connie A FLAGYL 500 MG ORAL TABLET take 1 daily METRONIDAZOLE 36406430992 Connie A KEPPRA 500 MG TABS take 1 tablet 4 times daily LEVETIRACETAM 60337666453 Connie A NEURONTIN 600 MG TABS take 1 tablet 4 times daily GABAPENTIN 94063762780 Connie A PEPCID 20 MG TABS take 1 daily FAMOTIDINE 24825862237 Connie A DANTROLENE SODIUM 100 MG CAPS take 1 capsule 3 times daily DANTROLENE SODIUM 29953341864 Connie A BACLOFEN 20 MG TABS take 2 tablets 4 times daily BACLOFEN 57730112001 Connie A JANUVIA 100 MG TABS take 1 tablet daily SITAGLIPTIN PHOSPHATE 32235625684 Connie A METFORMIN HCL 1000 MG TABS take 1 tablet twice daily METFORMIN HCL 48615346509 Connie A GLIPIZIDE ER 5 MG [id number] take 1 daily GLIPIZIDE 01847881484 Connie A VANCOMYCIN HCL SOLR 1 gm IV Q12hrs/ OPAT VANCOMYCIN HCL SOLR 19802400914 Gunjan Renner RN FORTAZ 2 GM INTRAVENOUS SOLUTION RECONSTITUTED 2gm IV Q8hrs/ OPAT CEFTAZIDIME 72756601276 Gunjan Renner RN VANCOMYCIN HCL SOLR 1.25gm IV Q12hrs/ OPAT VANCOMYCIN HCL SOLR 39782998155 Gunjan Renner RN Medications Administered No information [...] Documenta tion of current medications (procedure) 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 yes Dietary management education, guidance, and counseling (procedure) ORALTOBACUSE Current Tobacco smoking status SMOK STATUS Never smoker 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 smoking status Lab Report: BASIC METABOLIC PANEL [...] 16/02/22 CPT-Cooral Continue oral antibiotics 20 16/02/05 CPT-63681 CMP [id number] CBC with Differential 2015 CPT-68703 C- reactive protein CPT-77214 BMP CPT-Cooral Continue oral antibiotics 20 17/01/21 [id number] CBC with Differential 2015 CPT-84723 C- reactive protein CPT-34603 CMP CPT- stat weekly Stat Weekly Labs [...] New IV antibiotic CPT-J0878 Daptomycin CPT-J2185 Meropenem CPT-66872 CMP 77051 Hepatitis C Atb: (ICD 10 Code: Z11.59) 20 17/10/08 CPT-48475 CMP [id number] CBC with Differential 2015 CPT-89509 C- reactive protein [id number], [id number] CPK CPT-20459 Sedimentation Rate (ESR) 201 08/07/26 CPT-Cooral Continue oral antibiotics 20 17/08/26 CPT-98725 CMP CPT-81247 CBC w/o Differential CPT-92640 C- reactive protein CPT-24207 Sedimentation Rate (ESR) 201 08/03/25 CPT-PICREM PICC [...]
--- OUTSIDE RECORDS SUMMARY | 2025-03-02 10:17 | XMS_ITS | Clinical Summary ---
Author Organization Healthcare Address [address] [place] [address] Care Team Providers Care Benefit Specialist Name Role Phone Unavailable Primary Care Provider [...] positive for MRSA 05/06/2019 07/26/2020 [place] [address] [employer]
--- OUTSIDE RECORDS SUMMARY | 2025-03-02 10:17 | XMS_ITS | Clinical Summary ---
Author Organization [facility] Address [address] [place] [id number] Care Team Providers Care Paper Box Cutter Name Role Phone Duc Shi MD Primary Care Provider [phone] Allergies Active Allergy Reactions Criticality Noted Date Comments Tetanus Toxoid-Containing Vaccines 0 10/25/2015 Medications baclofen (LIORESAL) 20 MG tablet Take 40 mg by mouth 4 (four) times a day. Active dantrolene (DANTRIUM) 100 MG capsule Take 100 mg by mouth 3 (three) times a day. Active gabapentin (NEURONTIN) 600 MG tablet Take 600 mg by mouth 4 (four) times a day. Active levETIRAcetam (KEPPRA) 500 MG tablet Take 500 mg by mouth 4 (four) times a day. Active metFORMIN (GLUCOPHAGE) 500 MG tablet Take 1,000 mg by mouth 2 (two) times a day with meals. Active oxybutynin (DITROPAN) 5 MG tablet Take 5 mg by mouth 3 (three) times a day. Active pravastatin (PRAVACHOL) 40 MG tablet Take 40 mg by mouth daily. Active saccharomyces boulardii (FLORASTOR) 250 MG capsule Take 250 mg by mouth 2 (two) times a day. Active glipiZIDE (GLUCOTROL) 5 MG ER tablet Take 5 mg by mouth daily. Active sitaGLIPtin (JANUVIA) 100 MG tablet Take 100 mg by mouth daily. Active polyethylene glycol (MIRALAX) packet Take 17 g by mouth 2 (two) times a day. Active daptomycin 550 mg in sodium chloride 0.9 % 50 mLIndications:B one and/or Joint Infection Infuse 550 mg into a venous catheter every day. Indications: Bone and Joint Infection 6 Active meropenem (MERREM) 1 G injection Infuse 1,000 mg into a venous catheter every 12 (twelve) hours. 0 6 Active Active Problems Problem Noted Date Diagnosed Date Lactic acidosis 10/25/2015 Sepsis 10/25/2015 Stage 4 decubitus ulcer 10/25/2015 Osteomyelitis 10/25/2015 Leukocytosis 10/25/2015 Hypertension 10/25/2015 Diabetes 10/25/2015 Hyperlipidemia 10/25/2015 Paraplegic spinal paralysis 10/25/2015 Social History Tobacco Use Types Packs/Day Years Used Date Smoking Tobacco: Never Smokeless Tobacco: Current Chew Alcohol Use Standard Drinks/Week Comments No 0 (1 standard drink = 0.6 oz pur e alcohol) Abuse Screen Answer Date Recorded Unsafe at Home or Work/School Not on file Feels Threatened by Someone? Not on file 01/2023 Does Anyone Keep You from Co ntacting Others or Doint Things Outside the Home? Not on file 12/12/2022 Physical Sign of Abuse Present Not on file 1 Housing Stability Answer Date Recorded Current Living Arrangements Not on file 12/02 Potentially Unsafe Housing Conditions Not on trice e 12/12/2022 Family and Community Support Answer Jonn e Recorded Help with Day-to-Day Activities Not on file 12/12/2022 Lonely or Isolated Not on file 12/12/2022 Employment Answer Date Recorded Do you want help finding or keeping work or a jennifer b? Not on file 12/12/2022 Disabilities Answer Date Recorded Concentrating, Remembering, or Making Decisions Difficulty Not on file 12/12/2022 Doing Errands Independently Difficulty Not on fi le 12/12/2022 Education Answer Date Recorded Help with school or training? Not on file Preferred Language Not on file 12/12/2022 Sex and Gender Information Value Date Recorded Sex Assigned at Not on file Legal Sex Male 3:53 PM EST Gender Identity Not on file Sexual Orientation Not on file Last Filed Vital Signs Vital Sign Reading Time Taken Comments Blood Pressure 117/66 10/29/2015 9:20 AM EDT Pulse 99 10/29/2015 10:55 AM EDT Temperature 37.1 C (98.7 F) 10/29/2015 4:05 AM EDT Respiratory Rate 18 10/29/2015 4:05 AM EDT Oxygen Saturation 96% 10/29/2015 10:55 AM EDT Inhaled Oxygen Concentration - - Weight 92.2 kg (203 lb 3.2 oz) 10/29/2015 5:00 A M EDT Height 185.4 cm (6' 1 ) 10/25/2015 5:08 PM EDT Body Mass Index 26.81 10/25/2015 5:08 PM EDT Plan of Treatment Health Maintenance Due Date Last Done Comments ANNUAL PHYSICAL 1965 HEPATITIS C SCREENING 1965 LIPID PANEL 1965 COLOGUARD 05/16/2008 COLON CANCER SCREENING 5 YEA R SIGMOIDOSCOPY 05/16/2008 COLONOSCOPY 05/16/2008 COLORECTAL CANCER SCREENING 05/16/2008 CT COLONOGRAPHY 05/16/2008 FECAL OCCULT BLOOD TEST 05/16/2008 FIT Testing (1 year) 05/16/2008 Pneumococcal Vaccine 50+ (1 of 1 - PCV) 05/16/2013 ZOSTER VACCINE (1 of 2) 05/16/2013 INFLUENZA VACCINE 10/02/2024 HEMOGLOBIN A1C Discontinued 11/02/2015, 10/26/2015 Procedures Procedure Name Priority Date/Time Associated Diagnosis Comments HEMOGLOBIN A1C STAT 11/02/2015 3:23 PM EDT Abscess of buttock from Last 3 Months or Most Recently Relevant to Health Maintenance Results * (ABNORMAL) Hemoglobin A1c (11/02/2015 3:23 PM EDT) Hemoglobin A1C 7.40(H) 4.00 - 6.00 % 11/02/2015 5:49 PM EDT [facility] Blood Venipuncture / Unknown 11/02/2015 3:23 PM EDT 11/02/2015 3:23 PM EDT Narrative [facility] - 11/02/2015 5:49 PM EDT The [place] [employer] recommends maintenance of Hemoglobin A1C at 7.0% or lower. Goals for Hemoglobin A1C reduction may need to be modified if hypoglycemia is a problem. us Sarath Herbert MD LAB BLOOD ORDERABLES Final Result [facility]
[address] [place] [phone], from Last 3 Months or Most Recently Relevant to Health Maintenance Additional Health Concerns Infection Onset Date Last Indicated MRSA 10/26/2015 10/26/2015 Insurance MEDICARE A & B Advance Directives * Full Code (Latest Code Status on File) Date Activated Date Inactivated Comments 10/25/2015 10:21 PM 10/30/2015 8:07 AM Question Answer Comments Level Of Support Discussed With: Patient Care Teams Paper Box Cutter Relationship Specialty Start Date End Date Duc Shi MD [address] [facility] [address] [place] [address] PCP - General Internal Medicine 10/25/15
== END 2025-03-01 23:59 | disposition home or self-care (01) ==
LOC: LAB.DROPOF 03-02 10:00
PROVIDERS: PCP Internal Medicine; Visit Provider Urology
DX: N39.0 Urinary tract infection, site not specified (principal)
CPT/HCPCS: 87086

== ENCOUNTER 2025-03-03 13:28 | Outpatient (CLI) | payer OTHER, MEDICARE, SELFPAY ==
--- OUTSIDE RECORDS SUMMARY | 2025-03-03 13:30 | XMS_ITS | Clinical Summary ---
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, buttock and ishium, stage 4 L89.44 (ICD-10-CM ) 05/19 Inactive 05/19 Minoo Dudley Pressure ulcer of contiguous site of back, buttock and hip, stage 4 Nausea 436883180 (SNOMED CT) 03/05 Inactive 03/05 Minoodanika Buckner Nausea Nausea 041443964 (SNOMED CT) 03/05 Removed 03/05 Sarath Herbert MD Nausea Osteomyeliti s of vertebra, sacral region M46.28 (ICD-10-CM ) Inactive Belen W Osteomyelitis of vertebra, sacral and sacrococcygeal region STENOTROPHOM ONAS B96.89 (ICD-10-CM ) Active Belen W Other specified bacterial agents as the cause of diseases classified elsewhere 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 Belen 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 264597041 (SNOMED CT) Active Belen W Infection caused by Enterococcus MRSA B95.62 (ICD-10-CM ) Active Belen W Methicillin resistant Staphylococcus aureus infection as the cause of diseases classified elsewhere Pelvic sidewall abscess K65.1 (ICD-10-CM ) 10/28 Inactive 10/28 Belen W Peritoneal abscess Chronic osteomyeliti s, left ischial 693934375 (SNOMED CT) Active Belen W Chronic osteomyelitis of femur Anemia in chronic diseases D63.8 (ICD-10-CM ) 10/31 Active 10/31 Belen W Anemia in other chronic diseases classified elsewhere HX MRSA Z86.14 (ICD-10-CM ) Inactive Belen W Personal history of Methicillin resistant Staphylococcus aureus infection Tinea corporis 16047971 (SNOMED CT) 11/07 Active 11/07 Sarath Herbert MD Tinea corporis Obesity, BMI 30-34.9, adult 270610640 (SNOMED CT) 11/01 Inactive 11/01 Belen W [...] hip, stage 4 Obesity, BMI 30-34.9, adult 691725392 (SNOMED CT) 11/01 Removed 11/01 Aye Joaquin RN Obesity Pressure ulcer of sacral region, stage 4 476548175 (SNOMED CT) 05/19 Inactive 05/19 Belen W Pressure ulcer stage 4 Benign Essential Hypertension 07058618 (SNOMED CT) 10/31 Active 10/31 Minoo Dudley [...] Nicotine dependence, chewing tobacco, uncomplicated PELVIC ABSCESS 455043227 (SNOMED CT) 10/28 Inactive 10/28 Belen W Pelvic abscess Cellulitis/W ound Infection-Le ft Buttock region L03.317 (ICD-10-CM ) 12/01 Inactive 12/01 Belen W Cellulitis of buttock Abscess, buttock 11451117 (SNOMED CT) Inactive Belen W Abscess of buttock Chronic osteomyeliti s with draining sinus, left pelvic region 078799405 (SNOMED CT) 08/29 Inactive 08/29 Belen W Chronic osteomyelitis with draining sinus Chronic osteomyeliti s with draining sinus, left pelvic region 016830954 (SNOMED CT) 08/29 Removed 08/29 Minoo Dudley Chronic osteomyelitis with draining sinus Pressure ulcer of left ischium, stage 4 L89.324 (ICD-10-CM ) 05/19 Inactive 05/19 Minoo Dudley Pressure ulcer of left buttock, stage 4 Pressure ulcer of left ischium, stage 3 L89.323 (ICD-10-CM ) 05/19 Removed 05/19 Minoo Dudley Pressure ulcer of left buttock, stage 3 Abscess, buttock 64110734 (SNOMED CT) Removed Minoo Buckner Abscess of buttock Diabetes mellitus type II 11094217 (SNOMED CT) Active Minoo Buckner Type 2 diabetes mellitus Hx of MRSA infection 562186635 (SNOMED CT) Active Minoo Buckner H/O: infectious [...] the cause of diseases classified elsewhere MRSA 903641364 (SNOMED CT) Inactive Belen W Methicillin resistant Staphylococcus aureus infection ENTEROCOCCUS B95.2 (ICD-10-CM ) Removed Belen W Enterococcus as the cause of diseases classified elsewhere Pressure ulcer of Left Ischium Stage IV L89.44 (ICD-10-CM ) Removed Belen W Pressure ulcer of contiguous site of back, buttock and hip, stage 4 Paraplegia 21376850 (SNOMED CT) Active Belen Cano Paraplegia Diabetes mellitus type II, not stated as uncontrolled E11.9 (ICD-10-CM ) Inactive Belen Cano Type 2 diabetes mellitus without complications Cellulitis and abscess of buttock 425527201 (SNOMED CT) 12/01 Inactive 12/01 Ashley Joseph RN Cellulitis and abscess of buttock Medications Medication Instructions Start Date Stop Date Generic Name ND Provider BACTRIM DS 800-160 MG TABS 1 by mouth twice a day SULFAMETHOXAZOLE -TRIMETHOPRIM [id number] Sarath Herbert MD BACTRIM DS 800-160 MG TABS 1 by mouth twice a day SULFAMETHOXAZOLE -TRIMETHOPRIM 05132444964 Sarath Herbert MD BACTRIM DS 800-160 MG TABS 1 by mouth twice a day SULFAMETHOXAZOLE -TRIMETHOPRIM 91208106544 Sarath Herbert MD CEFTAZIDIME SOLR 2gm IV Q8hrs OPAT CEFTAZIDIME SOLR 45915974463 Carolee Araujo RN ZOFRAN 4 MG ORAL TABLET 1 by mouth 3 times a day 7 days for nausea ONDANSETRON HCL 16705120100 Sarath Herbert MD PRAVACHOL 40 MG ORAL TABLET by mouth daily PRAVASTATIN SODIUM 53814282510 Annakain Kilgore GLIPIZIDE XL TABLET EXTENDED RELEASE 24 HOUR 2 tabs daily GLIPIZIDE [id number] 54777794193 Jesús P LORTAB 5-325 MG ORAL TABLET by mouth three times a day as needed HYDROCODONE-ACET AMINOPHEN 13241383987 Jesús P ASCORBIC ACID 500 MG TABS by mouth daily ASCORBIC ACID 98364783438 Jesús P BACLOFEN TABS 2 tabs four times a day BACLOFEN TABS 16074776487 Jesús P DANTROLENE SODIUM 100 MG CAPS by mouth three times a day DANTROLENE SODIUM 10993471087 Jesús P PEPCID 20 MG TABS by mouth twice daily FAMOTIDINE 13127916521 Jesús P NEURONTIN 600 MG TABS by mouth four times a day GABAPENTIN 12374085056 Jesús P ACIDOPHILUS 100 MG CAPS 2 tabs daily for 14 days LACTOBACILLUS 69327424637 Jesús P KEPPRA 500 MG TABS by mouth four times a day LEVETIRACETAM 46825768490 Jesús P LORAZEPAM 0.5 MG TABS q.h.s. p.r.n. LORAZEPAM 09396605769 Jesús P PRAVACHOL 40 MG ORAL TABLET by mouth daily PRAVASTATIN SODIUM 91018415966 Jesús P VITAMIN E-400 400 UNIT ORAL CAPSULE by mouth daily VITAMIN E 99263912160 Jesús P ORAZINC 220 (50 Zn) MG CAPS by mouth daily ZINC SULFATE 31521498590 Jesús P DANTROLENE SODIUM 100 MG CAPS take by mouth 3 times a day DANTROLENE SODIUM 58810729415 Jesús P GABAPENTIN 600 MG TABS take by mouth four times a day GABAPENTIN 21292491174 Jesús P GLIPIZIDE ER 5 MG [id number] take by mouth daily GLIPIZIDE 11634012999 Jesús P LEVETIRACETAM 500 MG TABS take by mouth 4 times a day LEVETIRACETAM 88938056408 Jesús P METFORMIN HCL 500 MG TABS take 1000mg by mouth a day with meals METFORMIN HCL 01085030975 Jesús P METRONIDAZOLE 500 MG TABS take 1 tab by mouth every 8 hours for 28 days METRONIDAZOLE 07843826776 Jesús P MIRALAX ORAL PACKET take 17g by mouth two times a day POLYETHYLENE GLYCOL 3350 72694536916 Jesús P FLORASTOR 250 MG CAPS take 250mg by mouth two times a day SACCHAROMYCES BOULARDII 56581440677 Jesús P CUBICIN 500 MG INTRAVENOUS SOLUTION RECONSTITUTED CUBICIN 500MG IV Q 24 HRS/OPAT DAPTOMYCIN 78975652341 Jesús P FLUCONAZOLE 200 MG TABS 1 by mouth daily 7 days FLUCONAZOLE 57989264847 Jesús P CEFTAZIDIME SOLR 2gm IV Q8hrs OPAT CEFTAZIDIME SOLR 79845784740 Lexi Humphries RN MERREM 1 GM INTRAVENOUS SOLUTION RECONSTITUTED MERREM 1 GM IV Q 12 HRS/OPAT MEROPENEM 21230715789 Lexi Humphries RN FLUCONAZOLE 200 MG TABS 1 by mouth daily 7 days FLUCONAZOLE 09026868750 Sarath Herbert MD JANUVIA 100 MG TABS take 100 mg by mouth daily SITAGLIPTIN PHOSPHATE 90006793445 Roshan Cano FLORASTOR 250 MG CAPS take 250mg by mouth two times a day SACCHAROMYCES BOULARDII 66614631825 Roshan Cano MIRALAX ORAL PACKET take 17g by mouth two times a day POLYETHYLENE GLYCOL 3350 51028582146 Roshan Cano OXYBUTYNIN CHLORIDE 5 MG TABS take by mouth three times a day OXYBUTYNIN CHLORIDE 39583446025 Roshan Cano METRONIDAZOLE 500 MG TABS take 1 tab by mouth every 8 hours for 28 days METRONIDAZOLE 94375887771 Roshan Cano METFORMIN HCL 500 MG TABS take 1000mg by mouth a day with meals METFORMIN HCL 62949146791 Roshan Cano LEVETIRACETAM 500 MG TABS take by mouth 4 times a day LEVETIRACETAM 36360364478 Roshan Cano GLIPIZIDE ER 5 MG [id number] take by mouth daily GLIPIZIDE 35113217866 Roshan Cano GABAPENTIN 600 MG TABS take by mouth four times a day GABAPENTIN 85941968611 Roshan Rachael DANTROLENE SODIUM 100 MG CAPS take by mouth 3 times a day DANTROLENE SODIUM 59376571028 Roshan Cano GLIPIZIDE ER 5 MG [id number] take 1 daily GLIPIZIDE 47251856543 Roshan Cano METFORMIN HCL 1000 MG TABS take 1 tablet twice daily METFORMIN HCL 64121137407 Roshan Rachael JANUVIA 100 MG TABS take 1 tablet daily SITAGLIPTIN PHOSPHATE 58897029141 Roshan Cano BACLOFEN 20 MG TABS take 2 tablets 4 times daily BACLOFEN 18986908204 Roshan Rachael DANTROLENE SODIUM 100 MG CAPS take 1 capsule 3 times daily DANTROLENE SODIUM 23865516050 Roshan Cano NEURONTIN 600 MG TABS take 1 tablet 4 times daily GABAPENTIN 85694441086 Roshan Rachael KEPPRA 500 MG TABS take 1 tablet 4 times daily LEVETIRACETAM 52046721371 Roshan Cano OXYBUTYNIN CHLORIDE 5 MG TABS take 1 tablet 3 times daily as needed OXYBUTYNIN CHLORIDE 60143756267 Roshan Cano PRAVACHOL 40 MG ORAL TABLET take 1 tablet daily PRAVASTATIN SODIUM 48653183444 Roshan Cano FLORASTOR 250 MG CAPS take 1 capsule daily SACCHAROMYCES BOULARDII 80813888409 Roshan Cano CUBICIN 500 MG INTRAVENOUS SOLUTION RECONSTITUTED CUBICIN 500MG IV Q 24 HRS/OPAT DAPTOMYCIN 66703705244 Carolee Araujo RN MERREM 1 GM INTRAVENOUS SOLUTION RECONSTITUTED MERREM 1 GM IV Q 12 HRS/OPAT MEROPENEM 91305402395 Carolee Araujo RN PRAVACHOL 40 MG ORAL TABLET take 1 tablet daily PRAVASTATIN SODIUM 61684862315 Janell S LEVAQUIN TABS by mouth daily, dose unknown LEVOFLOXACIN TABS 78140251216 Janell S LEVAQUIN 500 MG ORAL TABLET 1 by mouth daily 7 days LEVOFLOXACIN 81635597637 Janell S LEVAQUIN 500 MG ORAL TABLET 1 by mouth daily 7 days LEVOFLOXACIN 31736450347 Sarath Herbert MD PEPCID 20 MG TABS take 1 daily FAMOTIDINE 64294937277 Yolande D FLAGYL 500 MG ORAL TABLET take 1 daily METRONIDAZOLE 58442650662 Yolande D NYSTATIN 971970 UNIT TABS take 1 tablet 4 times daily NYSTATIN 12614788252 Yolande D DOXYCYCLINE HYCLATE 100 MG CAPS Take one by mouth twice daily. DOXYCYCLINE HYCLATE 11613470905 Yolande D LEVAQUIN TABS by mouth daily, dose unknown LEVOFLOXACIN TABS 32709771149 Yolande D DOXYCYCLINE HYCLATE 100 MG CAPS Take one by mouth twice daily. DOXYCYCLINE HYCLATE 74516542961 Savita L VANCOMYCIN HCL SOLR 1 gm IV Q12hrs/ OPAT VANCOMYCIN HCL SOLR 10956238988 Maciej Jara FORTAZ 2 GM INTRAVENOUS SOLUTION RECONSTITUTED 2gm IV Q8hrs/ OPAT CEFTAZIDIME 54109367517 Maciej Jara FLORASTOR 250 MG CAPS take 1 capsule daily SACCHAROMYCES BOULARDII 44281675841 Connie A PRAVACHOL 40 MG ORAL TABLET take 1 tablet daily PRAVASTATIN SODIUM 72242581307 Connie A OXYBUTYNIN CHLORIDE 5 MG TABS take 1 tablet 3 times daily as needed OXYBUTYNIN CHLORIDE 09914222042 Connie A NYSTATIN 461301 UNIT TABS take 1 tablet 4 times daily NYSTATIN 18583249333 Connie A FLAGYL 500 MG ORAL TABLET take 1 daily METRONIDAZOLE 49569676069 Connie A KEPPRA 500 MG TABS take 1 tablet 4 times daily LEVETIRACETAM 12388484819 Connie A NEURONTIN 600 MG TABS take 1 tablet 4 times daily GABAPENTIN 29807781378 Connie A PEPCID 20 MG TABS take 1 daily FAMOTIDINE 09024821991 Connie A DANTROLENE SODIUM 100 MG CAPS take 1 capsule 3 times daily DANTROLENE SODIUM 06411660311 Connie A BACLOFEN 20 MG TABS take 2 tablets 4 times daily BACLOFEN 84793485705 Connie A JANUVIA 100 MG TABS take 1 tablet daily SITAGLIPTIN PHOSPHATE 36797302829 Connie A METFORMIN HCL 1000 MG TABS take 1 tablet twice daily METFORMIN HCL 43363309189 Connie A GLIPIZIDE ER 5 MG [id number] take 1 daily GLIPIZIDE 37364372462 Connie A VANCOMYCIN HCL SOLR 1 gm IV Q12hrs/ OPAT VANCOMYCIN HCL SOLR 00924089561 Gunjan Renner RN FORTAZ 2 GM INTRAVENOUS SOLUTION RECONSTITUTED 2gm IV Q8hrs/ OPAT CEFTAZIDIME 63205567269 Gunjan Renner RN VANCOMYCIN HCL SOLR 1.25gm IV Q12hrs/ OPAT VANCOMYCIN HCL SOLR 83913869058 Gunjan Renner RN Medications Administered No information [...] Documenta tion of current medications (procedure) 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 Dietary management education, guidance, and counseling (procedure) ORALTOBACUSE Current Tobacco smoking status SMOK STATUS Never smoker 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 Lab Report: BASIC METABOLIC PANEL [...] 16/02/22 CPT-Cooral Continue oral antibiotics 20 16/02/05 CPT-75235 CMP [id number] CBC with Differential 2015 CPT-78667 C- reactive protein CPT-98983 BMP CPT-Cooral Continue oral antibiotics 20 17/01/21 [id number] CBC with Differential 2015 CPT-19863 C- reactive protein CPT-20215 CMP CPT- stat weekly Stat Weekly Labs [...] New IV antibiotic CPT-J0878 Daptomycin CPT-J2185 Meropenem CPT-13220 CMP 72895 Hepatitis C Atb: (ICD 10 Code: Z11.59) 20 17/10/08 CPT-28040 CMP [id number] CBC with Differential 2015 CPT-73365 C- reactive protein [id number], [id number] CPK CPT-73913 Sedimentation Rate (ESR) 201 08/07/26 CPT-Cooral Continue oral antibiotics 20 17/08/26 CPT-23560 CMP CPT-69171 CBC w/o Differential CPT-63923 C- reactive protein CPT-18405 Sedimentation Rate (ESR) 201 08/03/25 CPT-PICREM PICC [...]
--- OUTSIDE RECORDS SUMMARY | 2025-03-03 13:31 | XMS_ITS | Clinical Summary ---
Author Organization [facility] Address [address] [place] [id number] Care Team Providers Care Director Of Student Financial Services Name Role Phone Duc Shi MD Primary Care Provider [phone] Allergies Active Allergy Reactions Criticality Noted Date [...] - 6.00 % 11/02/2015 5:49 PM EDT [facility] Blood Venipuncture / Unknown 11/02/2015 3:23 PM EDT 11/02/2015 3:23 PM EDT Narrative [facility] - 11/02/2015 5:49 PM EDT [employer] [place] [employer] recommends maintenance of Hemoglobin A1C at 7.0% or lower. Goals for Hemoglobin A1C reduction may need to be modified if hypoglycemia is a problem. us Sarath Herbert MD LAB BLOOD ORDERABLES Final Result [facility]
[address] [id number], from Last 3 Months or Most Recently Relevant to Health Maintenance Additional Health Concerns Infection Onset Date Last Indicated MRSA 10/26/2015 10/26/2015 Insurance MEDICARE A & B Advance Directives * Full Code (Latest Code Status on File) Date Activated Date Inactivated Comments 10/25/2015 10:21 PM 10/30/2015 8:07 AM Question Answer Comments Level Of Support Discussed With: Patient Care Teams Director Of Student Financial Services Relationship Specialty Start Date End Date Duc Shi MD [address] [facility] [address] [place] [address] PCP - General Internal Medicine 10/25/15
--- OUTSIDE RECORDS SUMMARY | 2025-03-03 13:31 | XMS_ITS | Clinical Summary ---
Author Organization Healthcare Address [address] [place] [address] Care Team Providers Care Casino Operations Supervisor Name Role Phone Unavailable Primary Care Provider [...] positive for MRSA 05/06/2019 07/26/2020 [place] [address] [employer]
--- NOTE | 2025-03-03 13:45 | US_ITS ---
FINAL REPORT TECHNIQUE: Sonographic images of the kidneys and retroperitoneum were obtained in the longitudinal and transverse planes. CLINICAL HISTORY: .utis - pt self caths FINDINGS: The right kidney measures 10.1 cm in cevp-ur-emoc length. No hydronephrosis, mass, or stone. Cortical echogenicity and thickness are normal. The left kidney measures 10.8 cm in tfwj-fi-neeb length. No hydronephrosis, mass, or stone. Cortical echogenicity and thickness are normal. IMPRESSION: Morphologically normal kidneys bilaterally. Reviewed, Interpreted and Dictated by Mildred Ibanez MD Transcribed by Misa Figueroa Authenticated and [facility]
== END 2025-03-03 23:59 | disposition home or self-care (01) ==
LOC: RAD 13:29
PROVIDERS: PCP Internal Medicine; Visit Provider Urology
DX: N39.0 Urinary tract infection, site not specified (principal); N31.9 Neuromuscular dysfunction of bladder, unspecified
CPT/HCPCS: 76770